=== PATIENT | male | born 1950 | race Caucasian/White ===

== ENCOUNTER 2017-02-28 14:03 | Emergency (ER) | payer MEDICARE, MEDICAID ==
[~2017-02-28] VITALS: Ht 180.3 cm; Wt 129.5 kg
[~2017-02-28 14:03] MED LIST: ALDACTONE 25MG25 M1 PO; ALDACTONE50 MG PO; ALTACE 10MG TAB10 MG PO; ALTACE10 MG PO; AMBIEN 10MG10 MG PO; AMOXICILLIN 50500 MG PO; ANTIVERT 12.512.5 MG PO; ANTIVERT 25MG25 MG PO; ASPIRIN 81M81 MG/TA2 PO; ASPIRIN E.C. 8181 MG PO; ATOXIMETIN-B1 CAP PO; BIAXIN 500MG T500 MG PO; CARDURA 1MG1 MG PO; CIPRO 500MG TA500 MG PO; COMPAZINE 110 MG/TAB PO; ELIQUIS 5MG PO; FAMOTIDINE20 MG PO; FLAGYL 250250 MG/TAB PO; FLAGYL500 MG PO; FLOMAX 0.40.4 MG/CAP; FLOMAX 0.40.4 MG/CAP PO; IRON325 MG PO; LASIX 20MG TABL20 MG PO; LASIX 40MG TABL40 MG PO; LIPITOR20 MG PO; LOPRESSOR 225 MG/TAB PO; LOPRESSOR100 MG PO; LORTAB 5/500 501 TAB; LORTAB 5/500 501 TAB PO; MACRODANTIN50 MG/CA1 PO; METOPROLOL SUCC50 MG PO; MULTAQ400 MG PO; NORCO 325 MG-51 TAB PO; NORCO 325 MG-7.1 TAB PO; PACERONE100 MG; PACERONE200 MG PO; PEPCID 20MG TAB20 MG PO; PERCOCET 325 MG1 TA2 PO; PREVACID 30MG30 M1 PO; PROTONIX 40MG T40 MG PO; RITE AID BRAND PO; TYLENOL W/COD1 UDTAB PO; ULTRAM 50MG TAB50 MG PO; ZITHROMAX 250M250 MG PO
[2017-02-28 14:07] VITALS: TEMP 97.6
[2017-02-28 14:22] LABS: BASO % 0.8 % (0.0-2.0); EOS # 0.3 (0.0-0.7); EOS % 6.7 % (0-4.0); GRAN # 2.1 (1.4-6.5); GRAN % 54.9 % (42.2-75.2); HEMATOCRIT 39.7 % (42.0-52.0); HEMOGLOBIN 13.4 g/dl (13.5-18.0); LYMPH % 26.1 % (20.0-51.0); MEAN CELL VOLUME 93 fl (80.0-100.0); MEAN CORPUSCULAR HEMOGLOBIN 32 pg (27.0-31.0); MEAN CORPUSCULAR HGB CONC 34 g/dl (33.0-37.0); MONO # 0.4 (0.1-0.6); MONO % 11.2 % (1.7-9.3); PLATELET COUNT 179 K/mm3 (130-400); RED BLOOD COUNT 4.26 M/mm3 (4.20-5.60); REDCELL DISTRIBUTION WIDTH-CV 15.9 % (11.5-14.5); WHITE BLOOD COUNT 3.8 K/mm3 (4.8-10.8)
[2017-02-28 14:32] LABS: ADJUSTED CALCIUM 9.3 mg/dL (8.4-10.2); ALANINE AMINOTRANSFERASE 22 U/L (21-72); ALBUMIN 3.7 gm/dL (3.5-5.0); ALKALINE PHOSPHATASE 88 U/L (50-136); ANION GAP 10 mmol/L (7-16); BILIRUBIN,TOTAL 1.1 mg/dL (0.0-1.0); BLOOD UREA NITROGEN 18 mg/dL (9-20); CALCIUM 9.1 mg/dL (8.4-10.2); CARBON DIOXIDE 24 mmol/L (22-30); CHLORIDE 100 mmol/L (98-107); CREATININE, serum 0.99 mg/dL (0.66-1.25); GLUCOSE 102 mg/dL (74-106); POTASSIUM 4.6 mmol/L (3.4-5.0); SODIUM 134 mmol/L (137-145); TOTAL PROTEIN 6.4 gm/dL (6.4-8.2)
[2017-02-28 14:43] LABS: B-TYPE NATRIURETIC PEPTIDE 2560 pg/mL (0-125)
[2017-02-28 14:51] LABS: TROPONIN-I < 0.012 ng/mL (0.000-0.034)
[2017-02-28 14:52] LABS: INR 1.5 (0.8-3.0)
[2017-02-28 14:54] LABS: PARTIAL THROMBOPLASTIN TIME 45.6 SECONDS (26.0-37.0)
[2017-02-28 15:24] VITALS: BP 111/93; PULSE 66
[2017-04-22] MEDS ORDERED: EDOX60TA1 PO (10:52)
[2017-04-22] MEDS ORDERED: IRON TABLETS325 MG PO (11:00)
[2017-04-23] MEDS ORDERED: NORCO 325 MG-7.1 TAB PO (12:55)
== END 2017-02-28 15:24 | disposition home or self-care (01) ==
LOC: COL.ER 14:03
PROVIDERS: Family Medicine
DX: R07.9 Chest pain, unspecified (principal); I10 Essential (primary) hypertension; I48.2 Chronic atrial fibrillation; Z79.01 Long term (current) use of anticoagulants; I25.10 Atherosclerotic heart disease of native coronary artery without angina pectoris

== ENCOUNTER → 2017-03-26 | Outpatient (CLI) | payer MEDICARE, MEDICAID ==
[~2017-03-26] MED LIST changes: +EDOX60TA1 PO; +IRON TABLETS325 MG PO; +LANOXIN 0.120.125 MG PO; +LOPRESSOR 550 MG/TAB PO; +PRINIVIL5 MG PO; +SOLARAZE3% TOP; +WELLBUTRIN XL150 MG PO
== END ==
LOC: COL.RAD 09:45
DX: E04.1 Nontoxic single thyroid nodule (principal); E07.9 Disorder of thyroid, unspecified; C18.9 Malignant neoplasm of colon, unspecified

== ENCOUNTER → 2017-04-23 | Outpatient (CLI) | payer MEDICARE, MEDICAID ==
[~2017-04-23] VITALS: Ht 180.3 cm; Wt 120.0 kg
[2017-04-23 12:57] VITALS: BP 112/69; PULSE 59
[2017-04-23 14:35] VITALS: BP 108/74; PULSE 59
== END ==
LOC: COL.RAD 12:22
DX: E04.1 Nontoxic single thyroid nodule (principal); Z98.84 Bariatric surgery status; Z85.6 Personal history of leukemia; Z85.038 Personal history of other malignant neoplasm of large intestine

== ENCOUNTER 2017-05-10 16:27 | Inpatient (IN) | payer MEDICARE, MEDICAID ==
[~2017-05-10] VITALS: Ht 180.3 cm; Wt 135.0 kg
[2017-05-10] VITALS (198 sets, daily range): BP systolic 123–134; BP diastolic 77–81; PULSE 48–81; O2SAT 85–100
[~2017-05-10 16:27] MED LIST changes: -LANOXIN 0.120.125 MG PO; -LOPRESSOR 550 MG/TAB PO; -PRINIVIL5 MG PO; -SOLARAZE3% TOP; -WELLBUTRIN XL150 MG PO
[2017-05-10] MEDS ORDERED: LANOXIN 0.120.125 MG PO (21:27)
[2017-05-10] MEDS ORDERED: WELLBUTRIN XL150 MG PO (21:31)
[2017-05-10] MEDS ORDERED: PRINIVIL5 MG PO (21:33)
[2017-05-10] MEDS ORDERED: SOLARAZE3% TOP (21:35)
[2017-05-10 21:44] LABS: INR 1.2 (0.8-3.0); PROTHROMBIN TIME 12.8 SECONDS (9.7-12.8)
[2017-05-11] VITALS (271 sets, daily range): BP systolic 108–139; BP diastolic 78–106; PULSE 63–80; TEMP 98.4–99; O2SAT 82–100
[2017-05-11 04:21] LABS: BASO % 0.3 % (0.0-2.0); EOS % 0.6 % (0-4.0); GRAN # 5.3 (1.4-6.5); GRAN % 79.8 % (42.2-75.2); HEMATOCRIT 34.2 % (42.0-52.0); HEMOGLOBIN 11.2 g/dl (13.5-18.0); LYMPH # 0.6 (1.2-3.4); LYMPH % 8.7 % (20.0-51.0); MEAN CELL VOLUME 92 fl (80.0-100.0); MEAN CORPUSCULAR HEMOGLOBIN 30 pg (27.0-31.0); MEAN CORPUSCULAR HGB CONC 33 g/dl (33.0-37.0); MEAN PLATELET VOLUME 10.8 fl (7.4-10.4); MONO # 0.7 (0.1-0.6); MONO % 10.4 % (1.7-9.3); PLATELET COUNT 191 K/mm3 (130-400); RED BLOOD COUNT 3.73 M/mm3 (4.20-5.60); REDCELL DISTRIBUTION WIDTH-CV 16.3 % (11.5-14.5); WHITE BLOOD COUNT 6.7 K/mm3 (4.8-10.8)
[2017-05-11 04:28] LABS: INR 1.2 (0.8-3.0)
[2017-05-11 04:30] LABS: ANION GAP 4 mmol/L (7-16); BLOOD UREA NITROGEN 15 mg/dL (9-20); CALCIUM 7.8 mg/dL (8.4-10.2); CARBON DIOXIDE 25 mmol/L (22-30); CHLORIDE 100 mmol/L (98-107); CREATININE, serum 0.88 mg/dL (0.66-1.25); GLUCOSE 92 mg/dL (74-106); POTASSIUM 4.8 mmol/L (3.4-5.0); SODIUM 129 mmol/L (137-145)
[2017-05-11 04:38] LABS: DIGOXIN 0.6 ng/mL (0.8-2.0)
[2017-05-11 04:42] LABS: TROPONIN-I < 0.012 ng/mL (0.000-0.034)
[2017-05-12] VITALS (14 sets, daily range): BP systolic 107–158; BP diastolic 63–82; PULSE 52–88; TEMP 97.9–98.7
[2017-05-12 07:43] LABS: BASO % 0.6 % (0.0-2.0); EOS # 0.1 (0.0-0.7); EOS % 3.5 % (0-4.0); GRAN # 1.9 (1.4-6.5); GRAN % 58.8 % (42.2-75.2); HEMOGLOBIN 10.7 g/dl (13.5-18.0); LYMPH # 0.7 (1.2-3.4); LYMPH % 22.5 % (20.0-51.0); MEAN CELL VOLUME 92 fl (80.0-100.0); MEAN CORPUSCULAR HEMOGLOBIN 30 pg (27.0-31.0); MEAN CORPUSCULAR HGB CONC 32 g/dl (33.0-37.0); MEAN PLATELET VOLUME 11.1 fl (7.4-10.4); MONO # 0.5 (0.1-0.6); MONO % 14.3 % (1.7-9.3); PLATELET COUNT 181 K/mm3 (130-400); RED BLOOD COUNT 3.57 M/mm3 (4.20-5.60); REDCELL DISTRIBUTION WIDTH-CV 16.4 % (11.5-14.5); WHITE BLOOD COUNT 3.2 K/mm3 (4.8-10.8)
[2017-05-12 07:54] LABS: CALCIUM 7.7 mg/dL (8.4-10.2); CREATININE, serum 0.83 mg/dL (0.66-1.25); POTASSIUM 4.2 mmol/L (3.4-5.0)
[2017-05-12 08:11] LABS: INR 1.2 (0.8-3.0)
[2017-05-13 02:36] VITALS: BP 110/63; PULSE 68; TEMP 99.5
[2017-05-13 05:57] VITALS: BP 106/61; PULSE 78; TEMP 98.3
[2017-05-13 07:30] LABS: INR 1.2 (0.8-3.0); PROTHROMBIN TIME 13.2 SECONDS (9.7-12.8)
[2017-05-13 07:37] LABS: ANION GAP 4 mmol/L (7-16); BLOOD UREA NITROGEN 11 mg/dL (9-20); CARBON DIOXIDE 28 mmol/L (22-30); CHLORIDE 97 mmol/L (98-107); CREATININE, serum 0.88 mg/dL (0.66-1.25); GLUCOSE 88 mg/dL (74-106); POTASSIUM 4.2 mmol/L (3.4-5.0); SODIUM 129 mmol/L (137-145)
[2017-05-13 07:48] LABS: TROPONIN-I < 0.012 ng/mL (0.000-0.034)
[2017-05-13 11:00] VITALS: BP 128/75; PULSE 82; TEMP 98.2
[2017-05-13 13:58] VITALS: BP 103/56; PULSE 98; TEMP 98.1
[2017-05-13] MEDS ORDERED: NORCO 325 MG-7.1 TAB PO (16:04)
[2017-05-13 17:49] VITALS: BP 108/61; PULSE 71; TEMP 98.6
[2017-05-13 22:03] VITALS: BP 104/63; PULSE 69; TEMP 98.2
[2017-05-14 02:08] VITALS: BP 113/65; PULSE 72; TEMP 98.2
[2017-05-14 05:48] VITALS: BP 150/97; PULSE 74; TEMP 97.5
[2017-05-14 08:00] LABS: BASO % 0.6 % (0.0-2.0); EOS # 0.2 (0.0-0.7); EOS % 5.1 % (0-4.0); GRAN # 1.9 (1.4-6.5); GRAN % 51.9 % (42.2-75.2); LYMPH % 27.2 % (20.0-51.0); MEAN CELL VOLUME 92 fl (80.0-100.0); MEAN CORPUSCULAR HGB CONC 32 g/dl (33.0-37.0); MEAN PLATELET VOLUME 10.9 fl (7.4-10.4); MONO # 0.5 (0.1-0.6); MONO % 14.9 % (1.7-9.3); PLATELET COUNT 177 K/mm3 (130-400); REDCELL DISTRIBUTION WIDTH-CV 16.7 % (11.5-14.5); WHITE BLOOD COUNT 3.6 K/mm3 (4.8-10.8)
[2017-05-14 08:06] LABS: HEMATOCRIT 32.1 % (42.0-52.0); HEMOGLOBIN 10.4 g/dl (13.5-18.0); MEAN CORPUSCULAR HEMOGLOBIN 30 pg (27.0-31.0)
[2017-05-14 08:11] LABS: CALCIUM 7.9 mg/dL (8.4-10.2); CREATININE, serum 0.81 mg/dL (0.66-1.25); POTASSIUM 4.1 mmol/L (3.4-5.0)
[2017-05-14 08:22] LABS: INR 1.3 (0.8-3.0); PROTHROMBIN TIME 14.5 SECONDS (9.7-12.8)
[2017-05-14] MEDS ORDERED: LOPRESSOR 550 MG/TAB PO (08:44)
[2017-05-14 09:27] VITALS: BP 97/62; PULSE 73; TEMP 98.1
== END 2017-05-14 11:00 | disposition home or self-care (01) | DRG 352 ==
LOC: JCC 16:27 → SURG 16:29 → ICU 20:29 → SURG 05-11 21:01
PROVIDERS: Family Medicine; Internal Medicine Interventional Cardiology; Nurse Practitioner; Nurse Practitioner Family; Physician Assistant; Surgery
PROC: 0YU60JZ Supplement Left Inguinal Region with Synthetic Substitute, Open Approach (ICD-10-PCS; principal; 2017-05-12 09:00)
DX: K40.30 Unilateral inguinal hernia, with obstruction, without gangrene, not specified as recurrent (principal); I10 Essential (primary) hypertension; E78.5 Hyperlipidemia, unspecified; I48.2 Chronic atrial fibrillation; B35.4 Tinea corporis; B35.6 Tinea cruris; Z98.84 Bariatric surgery status; Z85.038 Personal history of other malignant neoplasm of large intestine; Z95.5 Presence of coronary angioplasty implant and graft; Z85.6 Personal history of leukemia; Z87.891 Personal history of nicotine dependence
CPT/HCPCS: 99223-AI; 99232-AI; 99233-AI; 99239; A9284; C1781; J0690; J1644; J2270; J2370; J2405; J2704; J2765; J3010; J7030; J7120

== ENCOUNTER 2017-06-24 14:12 | Emergency (ER) | payer MEDICARE, MEDICAID ==
[~2017-06-24] VITALS: Ht 180.3 cm; Wt 129.5 kg
[~2017-06-24 14:12] MED LIST changes: +LANOXIN 0.120.125 MG PO; +LOPRESSOR 550 MG/TAB PO; +PRINIVIL5 MG PO; +SOLARAZE3% TOP; +WELLBUTRIN XL150 MG PO
[2017-06-24 14:16] VITALS: TEMP 98.4
[2017-06-24 15:33] LABS: ADJUSTED CALCIUM 9.1 mg/dL (8.4-10.2); ALBUMIN 2.7 gm/dL (3.5-5.0); BILIRUBIN,TOTAL 0.5 mg/dL (0.0-1.0); CALCIUM 8.1 mg/dL (8.4-10.2); POTASSIUM 4.9 mmol/L (3.4-5.0); TOTAL PROTEIN 5.8 gm/dL (6.4-8.2)
[2017-06-24 15:45] LABS: BASO % 0.7 % (0.0-2.0); EOS # 0.1 (0.0-0.7); EOS % 3.2 % (0-4.0); GRAN # 2.8 (1.4-6.5); GRAN % 62.4 % (42.2-75.2); HEMATOCRIT 32.8 % (42.0-52.0); HEMOGLOBIN 10.6 g/dl (13.5-18.0); LYMPH # 0.9 (1.2-3.4); LYMPH % 20.7 % (20.0-51.0); MEAN CELL VOLUME 92 fl (80.0-100.0); MEAN CORPUSCULAR HEMOGLOBIN 30 pg (27.0-31.0); MEAN CORPUSCULAR HGB CONC 32 g/dl (33.0-37.0); MEAN PLATELET VOLUME 10.5 fl (7.4-10.4); MONO # 0.6 (0.1-0.6); MONO % 12.5 % (1.7-9.3); PLATELET COUNT 301 K/mm3 (130-400); RED BLOOD COUNT 3.56 M/mm3 (4.20-5.60); REDCELL DISTRIBUTION WIDTH-CV 16.8 % (11.5-14.5); WHITE BLOOD COUNT 4.4 K/mm3 (4.8-10.8)
[2017-06-24 17:00] LABS: PH 5 (5-8); SQUAMOUS EPITHELIAL None Seen /hpf; URINE APPEARANCE Clear; URINE BACTERIA None Seen /hpf; URINE BILIRUBIN Negative (NEGATIVE); URINE BLOOD 1+ (NEGATIVE); URINE COLOR Yellow; URINE GLUCOSE Negative (NEGATIVE); URINE KETONE Negative (NEGATIVE); URINE RBC 0-2 /hpf; URINE WBC 0-2 /hpf
[2017-06-24 18:08] VITALS: BP 109/74; PULSE 69
== END 2017-06-24 18:23 | disposition home or self-care (01) ==
LOC: COL.ER 14:12 → SURG 16:27 → COL.ER 18:23
PROVIDERS: Emergency Medicine
DX: T81.30XA Disruption of wound, unspecified, initial encounter (principal); K91.873 Postprocedural seroma of a digestive system organ or structure following other procedure; L02.211 Cutaneous abscess of abdominal wall; B96.89 Other specified bacterial agents as the cause of diseases classified elsewhere; I10 Essential (primary) hypertension; I48.91 Unspecified atrial fibrillation; E78.5 Hyperlipidemia, unspecified; Z85.038 Personal history of other malignant neoplasm of large intestine; Z95.5 Presence of coronary angioplasty implant and graft; Z87.891 Personal history of nicotine dependence; Z90.49 Acquired absence of other specified parts of digestive tract; Z98.84 Bariatric surgery status; Z98.890 Other specified postprocedural states
CPT/HCPCS: J2765; J3010; J7030; Q9967

== ENCOUNTER 2017-10-11 10:52 | Day surgery (SDC) | payer MEDICARE, MEDICAID ==
[2017-10-11] VITALS (7 sets, daily range): BP systolic 92–120; BP diastolic 45–77; PULSE 50–69; TEMP 97.8–98
[~2017-10-11] VITALS: Ht 180.3 cm; Wt 129.5 kg
[~2017-10-11 10:52] MED LIST changes: +CEPHALEXIN500 M1 PO; +NYAMYC100000 U/G TOP; +PACERONE400 MG PO
[2017-10-11 11:25] LABS: MEAN CELL VOLUME 93 fl (80.0-100.0); MEAN CORPUSCULAR HGB CONC 32 g/dl (33.0-37.0); MEAN PLATELET VOLUME 11.1 fl (7.4-10.4); PLATELET COUNT 291 K/mm3 (130-400); RED BLOOD COUNT 3.88 M/mm3 (4.20-5.60); REDCELL DISTRIBUTION WIDTH-CV 16.3 % (11.5-14.5)
[2017-10-11 11:28] LABS: HEMATOCRIT 36.2 % (42.0-52.0); HEMOGLOBIN 11.6 g/dl (13.5-18.0); MEAN CORPUSCULAR HEMOGLOBIN 30 pg (27.0-31.0)
[2017-10-11 11:32] LABS: INR 1.1 (0.8-3.0); PROTHROMBIN TIME 13.1 SECONDS (9.7-12.8)
[2017-10-11 11:38] LABS: CREATININE, serum 1.11 mg/dL (0.66-1.25); POTASSIUM 4.2 mmol/L (3.4-5.0)
[2017-10-11] MEDS ORDERED: EDOX60TA1 PO (12:24)
[2017-10-11] MEDS ORDERED: ALDACTONE 25MG25 M1 PO (12:27)
[2017-10-11] MEDS ORDERED: ZESTRIL 5MG5 MG PO (12:27)
[2017-10-11] MEDS ORDERED: FLOMAX 0.40.4 MG/CAP PO (12:28)
[2017-10-11] MEDS ORDERED: CARDENE 20MG CA20 M1 PO (12:28)
[2017-10-11] MEDS ORDERED: DEMADEX 20MG20 M1 PO (12:28)
[2017-10-11] MEDS ORDERED: CARDURA4 MG PO (12:29)
[2017-10-11] MEDS ORDERED: AMBIEN 10MG10 MG PO (12:29)
[2017-10-12 00:30] VITALS: BP 117/74; PULSE 61; TEMP 98
[2017-10-12 03:49] VITALS: BP 124/68; PULSE 60; TEMP 98.4
[2017-10-12 07:22] VITALS: BP 134/77; PULSE 39; PULSE 64; TEMP 98.2
[2017-10-12 11:42] VITALS: BP 101/56; PULSE 65; TEMP 98
== END 2017-10-12 13:04 | disposition home or self-care (01) ==
LOC: COL.CAR 10:52 → MEDICAL 15:39 → COL.CAR 10-12 13:04
PROVIDERS: Internal Medicine Interventional Cardiology
DX: R00.1 Bradycardia, unspecified (principal); I45.5 Other specified heart block; I48.0 Paroxysmal atrial fibrillation; R53.83 Other fatigue; Z88.0 Allergy status to penicillin; Z88.6 Allergy status to analgesic agent; Z85.6 Personal history of leukemia; Z85.038 Personal history of other malignant neoplasm of large intestine; Z92.21 Personal history of antineoplastic chemotherapy; Z68.38 Body mass index [BMI] 38.0-38.9, adult; I51.7 Cardiomegaly; I10 Essential (primary) hypertension; I08.0 Rheumatic disorders of both mitral and aortic valves
CPT/HCPCS: OP; J1940; J2250; J3010; J3370; J7030; J7050

== ENCOUNTER → 2018-02-21 | Outpatient (CLI) | payer MEDICARE, MEDICAID ==
[~2018-02-21] MED LIST changes: +CARDENE 20MG CA20 M1 PO; +CARDURA4 MG PO; +DEMADEX 20MG20 M1 PO; +ZESTRIL 5MG5 MG PO
== END ==
LOC: COL.RAD 13:01
DX: C18.3 Malignant neoplasm of hepatic flexure (principal); M46.84 Other specified inflammatory spondylopathies, thoracic region; E07.89 Other specified disorders of thyroid; J84.10 Pulmonary fibrosis, unspecified; N28.1 Cyst of kidney, acquired; M46.86 Other specified inflammatory spondylopathies, lumbar region; M51.36 Other intervertebral disc degeneration, lumbar region; K40.90 Unilateral inguinal hernia, without obstruction or gangrene, not specified as recurrent; Z98.84 Bariatric surgery status; Z90.49 Acquired absence of other specified parts of digestive tract; Z95.0 Presence of cardiac pacemaker
CPT/HCPCS: Q9967

== ENCOUNTER 2018-02-26 05:28 | Day surgery (SDC) | payer MEDICARE, MEDICAID ==
[~2018-02-26] VITALS: Ht 180.3 cm; Wt 129.2 kg
[2018-02-26 06:32] VITALS: BP 124/54; PULSE 36; TEMP 97.6
[2018-02-26 07:57] VITALS: BP 116/70; PULSE 43; TEMP 97.5
[2018-02-26 08:15] VITALS: BP 116/62; PULSE 62
[2018-02-26 08:30] VITALS: BP 109/42; PULSE 41
[2018-02-26 08:32] VITALS: BP 114/76; PULSE 43
== END 2018-02-26 09:16 | disposition home or self-care (01) ==
LOC: SDCO 05:28
DX: K57.30 Diverticulosis of large intestine without perforation or abscess without bleeding (principal); K21.9 Gastro-esophageal reflux disease without esophagitis; E66.9 Obesity, unspecified; N40.0 Benign prostatic hyperplasia without lower urinary tract symptoms; D50.9 Iron deficiency anemia, unspecified; F17.290 Nicotine dependence, other tobacco product, uncomplicated; I25.10 Atherosclerotic heart disease of native coronary artery without angina pectoris; I25.2 Old myocardial infarction; I11.0 Hypertensive heart disease with heart failure; I50.9 Heart failure, unspecified; M19.90 Unspecified osteoarthritis, unspecified site; Z79.891 Long term (current) use of opiate analgesic; Z79.01 Long term (current) use of anticoagulants; Z95.0 Presence of cardiac pacemaker; Z85.038 Personal history of other malignant neoplasm of large intestine
CPT/HCPCS: J2704; J7030

== ENCOUNTER 2018-06-22 16:41 | Emergency (ER) | payer MEDICARE, MEDICAID ==
[~2018-06-22] VITALS: Ht 180.3 cm; Wt 127.3 kg
[2018-06-22 16:48] VITALS: TEMP 97.9
[2018-06-22 17:13] LABS: BASO % 0.6 % (0.0-2.0); EOS # 0.1 (0.0-0.7); EOS % 1.5 % (0-4.0); GRAN # 2.1 (1.4-6.5); GRAN % 63.6 % (42.2-75.2); HEMOGLOBIN 10.3 g/dl (13.5-18.0); LYMPH # 0.8 (1.2-3.4); LYMPH % 24.1 % (20.0-51.0); MEAN CELL VOLUME 91 fl (80.0-100.0); MEAN CORPUSCULAR HEMOGLOBIN 30 pg (27.0-31.0); MEAN CORPUSCULAR HGB CONC 33 g/dl (33.0-37.0); MEAN PLATELET VOLUME 10.4 fl (7.4-10.4); MONO # 0.3 (0.1-0.6); MONO % 9.9 % (1.7-9.3); PLATELET COUNT 225 K/mm3 (130-400); RED BLOOD COUNT 3.49 M/mm3 (4.20-5.60); REDCELL DISTRIBUTION WIDTH-CV 17.4 % (11.5-14.5)
[2018-06-22 17:16] LABS: HEMATOCRIT 31.6 % (42.0-52.0)
[2018-06-22 17:29] LABS: ALANINE AMINOTRANSFERASE 19 U/L (21-72); ALBUMIN 2.9 gm/dL (3.5-5.0); ALKALINE PHOSPHATASE 85 U/L (50-136); ANION GAP 3 mmol/L (7-16); AST,SGOT 19 U/L (15-37); BILIRUBIN,TOTAL 0.5 mg/dL (0.0-1.0); BLOOD UREA NITROGEN 14 mg/dL (9-20); CALCIUM 8.6 mg/dL (8.4-10.2); CARBON DIOXIDE 25 mmol/L (22-30); CHLORIDE 101 mmol/L (98-107); CREATININE, serum 0.92 mg/dL (0.66-1.25); GLUCOSE 96 mg/dL (74-106); LIPASE 39 U/L (23-300); POTASSIUM 4.3 mmol/L (3.4-5.0); SODIUM 129 mmol/L (137-145); TOTAL PROTEIN 5.5 gm/dL (6.4-8.2)
[2018-06-22 17:37] LABS: C-REACTIVE PROTEIN < 0.5 mg/dL (0.0-0.9); TROPONIN-I < 0.012 ng/mL (0.000-0.034)
[2018-06-22 17:50] VITALS: BP 121/72
[2018-06-22 18:06] VITALS: PULSE 65
== END 2018-06-22 18:06 | disposition home or self-care (01) ==
LOC: COL.ER 16:41
PROVIDERS: Emergency Medicine
DX: R07.89 Other chest pain (principal); I10 Essential (primary) hypertension; I48.91 Unspecified atrial fibrillation; K21.9 Gastro-esophageal reflux disease without esophagitis; N40.0 Benign prostatic hyperplasia without lower urinary tract symptoms; F17.210 Nicotine dependence, cigarettes, uncomplicated; Z98.84 Bariatric surgery status

== ENCOUNTER 2018-12-03 18:06 | Inpatient (IN) | payer MEDICARE, MEDICAID ==
[~2018-12-03] VITALS: Ht 180.3 cm; Wt 136.4 kg
[2018-12-03] MEDS ORDERED: ELIQUIS 5MG PO (18:14)
[2018-12-03 18:56] LABS: BASO % 0.6 % (0.0-2.0); EOS # 0.1 (0.0-0.7); EOS % 4.1 % (0-4.0); GRAN # 1.7 (1.4-6.5); GRAN % 54.2 % (42.2-75.2); HEMATOCRIT 32.2 % (42.0-52.0); HEMOGLOBIN 10.3 g/dl (13.5-18.0); LYMPH % 30.3 % (20.0-51.0); MEAN CELL VOLUME 93 fl (80.0-100.0); MEAN CORPUSCULAR HEMOGLOBIN 30 pg (27.0-31.0); MEAN CORPUSCULAR HGB CONC 32 g/dl (33.0-37.0); MONO # 0.3 (0.1-0.6); MONO % 10.5 % (1.7-9.3); PLATELET COUNT 196 K/mm3 (130-400); RED BLOOD COUNT 3.47 M/mm3 (4.20-5.60); REDCELL DISTRIBUTION WIDTH-CV 21.4 % (11.5-14.5)
[2018-12-03 18:57] LABS: INR 1.7 (0.8-3.0)
[2018-12-03 19:13] LABS: ALANINE AMINOTRANSFERASE 16 U/L (21-72); ALKALINE PHOSPHATASE 92 U/L (50-136); ANION GAP 5 mmol/L (7-16); AST,SGOT 10 U/L (15-37); BILIRUBIN,TOTAL 0.8 mg/dL (0.0-1.0); BLOOD UREA NITROGEN 16 mg/dL (9-20); CALCIUM 8.5 mg/dL (8.4-10.2); CARBON DIOXIDE 23 mmol/L (22-30); CHLORIDE 107 mmol/L (98-107); CREATININE, serum 1.24 mg/dL (0.66-1.25); GLUCOSE 99 mg/dL (74-106); POTASSIUM 4.1 mmol/L (3.4-5.0); SODIUM 135 mmol/L (137-145); TOTAL PROTEIN 5.6 gm/dL (6.4-8.2)
[2018-12-03 19:25] LABS: TROPONIN-I < 0.012 ng/mL (0.000-0.035)
[2018-12-03] MEDS ORDERED: EDOX60TA1 PO (19:52)
[2018-12-03] MEDS ORDERED: NORCO 325 MG-7.1 TAB PO (19:53)
[2018-12-04] VITALS (664 sets, daily range): BP systolic 86–120; BP diastolic 54–90; PULSE 69–99; TEMP 97.4–98; O2SAT 79–100
--- NOTE | 2018-12-04 02:45 | NUR ---
Report received from She HAWK in ED.
--- NOTE | 2018-12-04 03:00 | NUR ---
Pt arrived to ICU07. Ambulated with stand by assist and use of cane to ICU bed at this time. Home clothes were removed and application of a hospital gown applied. Skin was assessed at this time and noted in admission B assessment. Pt personal belongings include cane, clothing, and corrective eye glasses on pts face at this time. Pt pleasant and cooperative.
--- NOTE | 2018-12-04 06:30 | NUR ---
Pt reported need for a BM, bedside commode was used, pts HR increased to 160's. Once pt was back in bed for approximately 5 minutes HR decreased to < 90's. Pt denies any lightheadedness, dizziness or chest pain associated with HR increase. Currently not on the Cardizem gtt per titration orders.
--- NOTE | 2018-12-04 07:40 | NUR ---
Bedside report provided to Maria Dolores Romero RN. Pt resting in bed at this time with eyes intermittently open and closed during report. Denies any questions or pain at this time.
--- NOTE | 2018-12-04 07:45 | NUR ---
Bedside report received from KENN Long.
--- NOTE | 2018-12-04 08:00 | NUR ---
Assessment completed. Pt awake, in bed. Denies any pain. HR Apaced on monitor. Pt moves independentely in bed. Discussed plan of care r/t possible KAM with cardioversion today. Waiting for Dr to see pt. Pt NPO at this time. VSS. Call light in reach.
[2018-12-04 08:11] LABS: EOS # 0.1 (0.0-0.7); GRAN # 1.6 (1.4-6.5); GRAN % 52.9 % (42.2-75.2); LYMPH % 33.7 % (20.0-51.0); MEAN CELL VOLUME 93 fl (80.0-100.0); MEAN CORPUSCULAR HEMOGLOBIN 31 pg (27.0-31.0); MEAN CORPUSCULAR HGB CONC 33 g/dl (33.0-37.0); MEAN PLATELET VOLUME 12.1 fl (7.4-10.4); MONO # 0.3 (0.1-0.6); MONO % 10.4 % (1.7-9.3); PLATELET COUNT 174 K/mm3 (130-400); RED BLOOD COUNT 3.28 M/mm3 (4.20-5.60); REDCELL DISTRIBUTION WIDTH-CV 21.5 % (11.5-14.5)
[2018-12-04 08:15] LABS: HEMATOCRIT 30.6 % (42.0-52.0)
[2018-12-04 08:27] LABS: CALCIUM 8.2 mg/dL (8.4-10.2); CREATININE, serum 1.32 mg/dL (0.66-1.25); MAGNESIUM 1.9 mg/dL (1.6-2.3); POTASSIUM 4.1 mmol/L (3.4-5.0)
--- NOTE | 2018-12-04 08:50 | NUR ---
KENN Masters with Dr Degroot at bedside. Updated on pt status. HR Apaced/Afib 90-100s on monitor. Pt has no complaints at this time. Will talk to Dr Degroot if plan to do KAM and cardioversion today.
--- NOTE | 2018-12-04 09:30 | NUR ---
Physical therapy working with pt in room.
--- NOTE | 2018-12-04 09:50 | NUR ---
Guerrero RN with Dr Degroot called to update plans to do KAM and cardioversion today. Ok for clear liquids for breakfast then NPO.
--- NOTE | 2018-12-04 11:30 | NUR ---
Paged Anesthesia at [phone] and [phone] without a response. Charge nurse was able to notify anesthesia at 1130 of consult for cardioversion at 1330.
--- NOTE | 2018-12-04 11:31 | NUR ---
First visit from the furnace combination analyst. No needs right now.
--- NOTE | 2018-12-04 13:30 | NUR ---
Anesthesia and US tech at bedside for KAM and cardioversion. Suction and oxymask set up. Crash cart in room and pt connected to defribrillator. Dr Degroot at bedside. time out completed with anesthesia, Oziel Sosa CRNA and Dr Degroot for KAM and cardioversion.
--- NOTE | 2018-12-04 13:50 | NUR ---
KAM completed. Pt cardioverted with 100J at 1347 and again with 200 J at 1349. Pt's HR Apaced. Pt resting in bed, VSS. Will monitor, see moderate sedation flowsheet.
--- NOTE | 2018-12-04 14:49 | NUR ---
SW met with patient about discharge planning. Patient reports he plans to return when discharged. Patient lives independently at home with his . Patient's PCP is Dr Salinas and he obtains prescriptions from [facility]. Patient uses a cane for ambulation but no other DME is reported and he does not use any home health services. Patient was seen by PT today and outpatient PT is recommended after discharge. Patient reports he is agreeable to outpatient PT. Patient reports he is unsure if he has a DPOA but is not interested in completing one at that time. SW does not anticipate any discharge needs.
--- NOTE | 2018-12-04 18:00 | NUR ---
Pt to CT scan via bed.
--- NOTE | 2018-12-04 18:23 | NUR ---
Pt arrived back to ICU room from CT scan via bed. Pt has no complaints at this time. Call light in reach.
--- NOTE | 2018-12-04 19:35 | NUR ---
Report given to night stocker, Rn.
[2018-12-05] VITALS (795 sets, daily range): BP systolic 95–114; BP diastolic 70–83; PULSE 66–99; TEMP 97.5–98.3; O2SAT 75–100
--- NOTE | 2018-12-05 00:54 | NUR ---
Pt resting in besd appears comfortable at this time, VSS, recieved sleep aid. Will continue to monitor and update MD as needed
[2018-12-05 05:36] LABS: BASO % 0.7 % (0.0-2.0); EOS # 0.1 (0.0-0.7); EOS % 1.5 % (0-4.0); GRAN # 2.7 (1.4-6.5); GRAN % 66.7 % (42.2-75.2); HEMOGLOBIN 10.2 g/dl (13.5-18.0); LYMPH # 0.9 (1.2-3.4); LYMPH % 22.1 % (20.0-51.0); MEAN CELL VOLUME 93 fl (80.0-100.0); MEAN CORPUSCULAR HEMOGLOBIN 30 pg (27.0-31.0); MEAN CORPUSCULAR HGB CONC 32 g/dl (33.0-37.0); MEAN PLATELET VOLUME 12.2 fl (7.4-10.4); MONO # 0.4 (0.1-0.6); PLATELET COUNT 204 K/mm3 (130-400); RED BLOOD COUNT 3.39 M/mm3 (4.20-5.60); REDCELL DISTRIBUTION WIDTH-CV 21.5 % (11.5-14.5)
[2018-12-05 05:42] LABS: HEMATOCRIT 31.5 % (42.0-52.0)
[2018-12-05 05:51] LABS: CALCIUM 8.3 mg/dL (8.4-10.2); CREATININE, serum 1.22 mg/dL (0.66-1.25); POTASSIUM 4.1 mmol/L (3.4-5.0)
--- NOTE | 2018-12-05 07:50 | NUR ---
Bedside report given to KENN Sheldon. Care of patient assumed at this time.
--- NOTE | 2018-12-05 08:18 | NUR ---
Patient assessment complete. Patient resting in bed, denies pain or shortness of breath. No acute findings. Will continue to monitor.
--- NOTE | 2018-12-05 12:00 | NUR ---
Patient resting in bed. No acute changes. Remains on amiodarone drip at 1 mg/min. Will continue to monitor.
--- NOTE | 2018-12-05 16:00 | NUR ---
Patient helped to commode. No acute changes. Pain and shortness of breath denied at this time. Will continue to monitor.
--- NOTE | 2018-12-05 16:50 | NUR ---
Spoke with Sangita in pharmacy regarding patient's evening coreg dose. Per pharmacy, medication should be given later this evening since medication was initially given around noon.
--- NOTE | 2018-12-05 19:49 | NUR ---
Bedside report given to KENN Pritchett.
--- NOTE | 2018-12-05 22:10 | NUR ---
Requesting [place] for pain in knees and ambiem to help with sleep. Otherwise no concerns at this time.
[2018-12-06] VITALS (487 sets, daily range): BP systolic 95–110; BP diastolic 66–74; PULSE 59–80; TEMP 97.8–98; O2SAT 78–100
--- NOTE | 2018-12-06 02:30 | NUR ---
Patient called to request ice water and jello. Denied any other needs at this time.
--- NOTE | 2018-12-06 07:15 | NUR ---
Bedside report received from KENN Pritchett. Patient is currently sitting up in bed with no complaints. VS WNL. SR on tele. Plan of care discussed. Call light within reach. Will continue to monitor.
--- NOTE | 2018-12-06 07:15 | NUR ---
Bedside report given to KENN Alford. Patient care transfered.
[2018-12-06 08:03] LABS: BASO % 0.5 % (0.0-2.0); EOS # 0.1 (0.0-0.7); EOS % 3.4 % (0-4.0); GRAN # 2.5 (1.4-6.5); GRAN % 62.5 % (42.2-75.2); HEMOGLOBIN 11.7 g/dl (13.5-18.0); LYMPH % 24.6 % (20.0-51.0); MEAN CELL VOLUME 94 fl (80.0-100.0); MEAN CORPUSCULAR HEMOGLOBIN 30 pg (27.0-31.0); MEAN CORPUSCULAR HGB CONC 32 g/dl (33.0-37.0); MEAN PLATELET VOLUME 11.9 fl (7.4-10.4); MONO # 0.4 (0.1-0.6); MONO % 8.8 % (1.7-9.3); PLATELET COUNT 192 K/mm3 (130-400); RED BLOOD COUNT 3.91 M/mm3 (4.20-5.60); REDCELL DISTRIBUTION WIDTH-CV 22.3 % (11.5-14.5)
[2018-12-06 08:05] LABS: HEMATOCRIT 36.6 % (42.0-52.0)
--- NOTE | 2018-12-06 09:31 | NUR ---
REPORT CALLED TO KENN ORTA. PATIENT WILL GO UP TO ROOM 308
--- NOTE | 2018-12-06 10:00 | NUR ---
Arrived to the room at this time. SBA assist with a walker to the bathroom. No pain or needs reported. The call light is in place.
[2018-12-06] MEDS ORDERED: LIPITOR 80MG80 MG PO (12:59)
[2018-12-06] MEDS ORDERED: CORDARONE200 MG/TAB PO (12:59)
[2018-12-06] MEDS ORDERED: ASPIRIN E.C. 8181 MG PO (13:01)
[2018-12-06] MEDS ORDERED: ZESTRIL 20MG TA20 MG PO (13:01)
[2018-12-06] MEDS ORDERED: COREG 6.256.25 MG/TA PO (13:01)
[2018-12-06] MEDS ORDERED: LASIX 20MG TABL20 MG PO (13:01)
[2018-12-06] MEDS ORDERED: NYSTATIN POWDER30 GM TOP (13:21)
[2018-12-06 15:44] LABS: CALCIUM 8.4 mg/dL (8.4-10.2); CREATININE, serum 1.28 mg/dL (0.66-1.25); POTASSIUM 3.9 mmol/L (3.4-5.0)
--- NOTE | 2018-12-06 16:26 | NUR ---
Discharge education completed with the patient. Escorted out via wheelchair. INT removed with difficulty. Al questions answered and the patient was provided this nurses nu,rosio for any questions.
== END 2018-12-06 16:28 | disposition home or self-care (01) | DRG 308 ==
LOC: COL.ER 18:06 → MEDICAL 20:48 → ICU 20:48 → MEDICAL 12-06 10:15
PROVIDERS: Emergency Medicine; Nurse Practitioner Family; ADMIT Internal Medicine
PROC: 5A2204Z Restoration of Cardiac Rhythm, Single (ICD-10-PCS; principal; 2018-12-05)
DX: I48.0 Paroxysmal atrial fibrillation (principal); I50.21 Acute systolic (congestive) heart failure; Z68.41 Body mass index [BMI] 40.0-44.9, adult; E87.1 Hypo-osmolality and hyponatremia; I31.3 Pericardial effusion (noninflammatory); E66.9 Obesity, unspecified; I11.0 Hypertensive heart disease with heart failure; I25.10 Atherosclerotic heart disease of native coronary artery without angina pectoris; Z95.0 Presence of cardiac pacemaker; Z85.030 Personal history of malignant carcinoid tumor of large intestine; E78.5 Hyperlipidemia, unspecified; Z95.5 Presence of coronary angioplasty implant and graft; Z98.84 Bariatric surgery status; F17.210 Nicotine dependence, cigarettes, uncomplicated; K21.9 Gastro-esophageal reflux disease without esophagitis; N40.0 Benign prostatic hyperplasia without lower urinary tract symptoms; Z85.6 Personal history of leukemia; B37.2 Candidiasis of skin and nail
CPT/HCPCS: 99223-AI; 99233-AI; 99239; J0282; J1940; J2704; J7030; J7060; Q9967

== ENCOUNTER 2019-04-14 05:53 | Inpatient (IN) | payer MEDICARE, OTHER ==
[~2019-04-14] VITALS: Ht 170.2 cm; Wt 141.6 kg
[2019-04-14] VITALS (847 sets, daily range): BP systolic 99–120; BP diastolic 65–83; PULSE 65–108; TEMP 97.4–98.4; O2SAT 74–100
[~2019-04-14 05:53] MED LIST changes: +CORDARONE200 MG/TAB PO; +COREG 6.256.25 MG/TA PO; +LIPITOR 80MG80 MG PO; +NYSTATIN POWDER30 GM TOP; +ZESTRIL 20MG TA20 MG PO
[2019-04-14 06:07] LABS: HEMOGLOBIN 11.4 g/dl (13.5-18.0); MEAN CELL VOLUME 93 fl (80.0-100.0); MEAN CORPUSCULAR HEMOGLOBIN 30 pg (27.0-31.0); MEAN CORPUSCULAR HGB CONC 32 g/dl (33.0-37.0); MEAN PLATELET VOLUME 12.3 fl (7.4-10.4); PLATELET COUNT 154 K/mm3 (130-400); RED BLOOD COUNT 3.86 M/mm3 (4.20-5.60); REDCELL DISTRIBUTION WIDTH-CV 23.9 % (11.5-14.5)
[2019-04-14 06:17] LABS: ALANINE AMINOTRANSFERASE 23 U/L (21-72); ALKALINE PHOSPHATASE 161 U/L (50-136); ANION GAP 9 mmol/L (7-16); AST,SGOT 35 U/L (15-37); BILIRUBIN,TOTAL 1.7 mg/dL (0.0-1.0); BLOOD UREA NITROGEN 15 mg/dL (9-20); CARBON DIOXIDE 24 mmol/L (22-30); CHLORIDE 109 mmol/L (98-107); CREATININE, serum 0.85 (0.66-1.25); GLUCOSE 113 mg/dL (74-106); INR 1.7 (0.8-3.0); POTASSIUM 3.3 mmol/L (3.4-5.0); PROTHROMBIN TIME 20.2 SECONDS (9.7-12.8); SODIUM 142 mmol/L (137-145)
[2019-04-14 06:18] LABS: LIPASE < 10 U/L (23-300)
[2019-04-14 06:19] LABS: PARTIAL THROMBOPLASTIN TIME 34.6 SECONDS (26.0-37.0)
[2019-04-14 06:30] LABS: TROPONIN-I < 0.012 ng/mL (0.000-0.035)
[2019-04-14 06:44] LABS: BAND 6 % (0-10); LYMPHOCYTE 6 % (20.0-51.0); NEUTROPHILS 87 % (42.0-75.2)
[2019-04-14 06:45] LABS: HYPOCHROMIA 2+; PLATELET ESTIMATE NORMAL (NORMAL)
--- NOTE | 2019-04-14 09:04 | NUR ---
RECEIVED REPORT FROM KENN BIRMINGHAM.
--- NOTE | 2019-04-14 09:37 | NUR ---
PATIENT ARRIVES TO ICU ROOM 2 VIA ED BED. PATIENT HAS AMIO DRIP AT 1 MG/MIN. PATIENT TRANSPORTED TO ICU BED AND ASSESSED. VITALS OBTAINED AND ARE STABLE. PATIENT IS RED AND EXCORIATED UNDER ABDOMINAL FOLDS AND IN THE GROIN AREA. 2+ PITTING EDEMA OBSERVED OF BILATERAL LOWER EXTREMITIES. PATIENT BRINGS WITH HIM A PAIR OF MORRISSEY SWEATPANTS, PURPLE SHIRT, AND BROWN SLIPPERS. PATIENT DENIES ANY PAIN AT THIS TIME.
--- NOTE | 2019-04-14 14:40 | NUR ---
PATIENT'S AMIO DRIP COMPLETE. NO ORDERS IN NOV TO CONTINUE. DR. SILVA NOTIFIED. RECEIVED VERBAL ORDER FOR PATIENT TO OBTAIN ECHO AND DETERMINE AMIO DOSING AFTERWARDS.
--- NOTE | 2019-04-14 16:18 | NUR ---
DR. SILVA AND ANESTHESIA AT THE BEDSIDE FOR KAM WITH POSSIBLE CARDIOVERSION. TIME OUT COMPLETED AT THIS TIME.
--- NOTE | 2019-04-14 16:28 | NUR ---
PATIENT CARDIOVERTED AND IN SINUS RHYTHM. SEE ANESTHESIA NOTE.
--- NOTE | 2019-04-14 18:32 | NUR ---
MADE ATTEMPT TO CONTACT DR. SILVA TO CLARIFY ORAL AMIODARONE ORDER AT THIS TIME. PREVIOUS ATTEMPT TO CLARIFY ORDER WAS MADE AT 1719. MESSAGES TO CALL BACK WERE LEFT BOTH TIMES. FOLLOWING CARDIOVERSION, DR. SILVA GAVE VERBAL ORDER TO BEGIN ORAL AMIODARONE TOMORROW MORNING AFTER 24 HOURS OF IV AMIO. THERE IS CURRENTLY AN ORDER FOR ORAL AMIO TO BEGIN TONIGHT AT 2100. ORDER STILL NEEDS CLARIFIED.
--- NOTE | 2019-04-14 18:43 | NUR ---
DR. SILVA CLARIFIED AMIO ORDER. OK TO START ORAL DOSE TONIGHT.
--- NOTE | 2019-04-14 19:25 | NUR ---
BEDSIDE REPORT GIVEN TO KENN GONZALEZ.
--- NOTE | 2019-04-14 20:06 | NUR ---
Pt resting in bed, denies pain, VSS at this time. pt currently remains on Amio gtt at 1mg, IV site looks good and filter in place. Pt had large, brown, loose BM at change of shift. Pt remain in regular A-paced rythme. and K replaced today. Will continue to monitor and updated providers as needed.
--- NOTE | 2019-04-14 21:28 | NUR ---
Pt c/o 06/25 pain to right knee, DAKOTA SpearP called to possibly restart home [place], order was recieved.
--- NOTE | 2019-04-14 21:53 | NUR ---
Dr. Degroot was called to clarify Amio order. want current ordered gtt to run for 24hrs at 1mg and then d/c. Will continue to monitor.
[2019-04-15] VITALS (746 sets, daily range): BP systolic 101–109; BP diastolic 55–81; PULSE 71–102; TEMP 98–99.9; O2SAT 60–100
[2019-04-15 05:38] LABS: TROPONIN-I 0.023 ng/mL (0.000-0.035)
--- NOTE | 2019-04-15 08:15 | NUR ---
PATIENT ASSESSED, VITALS TAKEN. STATES HE IS HAVING PAIN IN HIS RIGHT KNEE, I INFORMED HIM I WOULD LOOK INTO PAIN MEDICATIONS FOR HIM. DENIES CHEST PAIN, TIGHTNESS. I ASSISTED WITH SETTING UP BREAKFAST. WILL CONTINUE TO MONITOR.
--- NOTE | 2019-04-15 11:02 | NUR ---
ALYCIA met with the patient to discuss discharge plan. The patient lives in [place] with his life partner of twelve years, Amparo Keating. He states that he has one child, Veronica Lay, and that she lives here in [place]. He reports independence with ADLs and has a cane. He states that his cane has not been working well for him lately. He states that he is interested in getting a walker. ALYCIA discussed DME options and presented and explained the DME form to the patient. The patient reports that he would like to look over at the different DME companies, before making a decision. ALYCIA asked the hospitalist to order PT. The patient's PCP is Dr. Tomasa Salinas and he receives his medications from [facility]. He reports occasional difficulties affording his meds. ALYCIA discussed Good Rx and provided him with [place] information. The patient does not have advanced directives in EMR, but he states that he believes he does have them completed and that they are at his PCP's office. He states his life partner, Amparo, would be his DPOA-HC. ALYCIA contacted his PCP's office and requested a copy. The pediatric dermatologist informed SW that they do have one on file and will fax it to ICU. ALYCIA informed the patient. The patient was also interested in receiving information on orthopaedic doctors for his knee. ALYCIA provided the patient with [facility] contact information. The patient plans to return home with his life partner upon discharge. ALYCIA will need to continue to follow to assist the patient with getting a walker.
--- NOTE | 2019-04-15 13:21 | NUR ---
AMIODARONE DRIP DISCONTINUED PER DR. QIU'S ORDERS.
--- NOTE | 2019-04-15 14:33 | NUR ---
ICU received the patient's DPOA-HC, via fax, and it was placed in the patient's chart. The patient's DPOA-HC is his life partner, Amparo Keating. The alternate is his daughter, Veronica Lay.
--- NOTE | 2019-04-15 15:30 | NUR ---
REPORT GIVEN TO KENN TIPTON AT 1510 . PATIENT TAKEN TO MEDICAL FLOOR BY MYSELF VIA HOSPITAL BED AND SETTLED INTO ROOM AT 1530.
--- NOTE | 2019-04-15 18:15 | NUR ---
Pt has been napping since arriving to the floor from ICU, med rec checked, had some C/O pain and medications were given for relief.
--- NOTE | 2019-04-15 20:30 | NUR ---
Initial shift assessment done- states left knee pain 10/26 at this time- states [place] is working well, Did request a snack- given, Voiding small amounts of urine per urinal at a time- tele on- paced
[2019-04-16 03:25] VITALS: BP 123/65; PULSE 82; TEMP 99.5
--- NOTE | 2019-04-16 05:39 | NUR ---
[place] given for left knee pain 03/25- no stools during the night, Tele -paced
--- NOTE | 2019-04-16 07:12 | NUR ---
Report received from KENN Wiggins.
[2019-04-16 07:56] VITALS: BP 114/62; PULSE 85; TEMP 97.8
--- NOTE | 2019-04-16 08:43 | NUR ---
Pt awake and alert upon entry, resting in bed, no C/O pain currently, sjift assessments complete, left Pt call light in reach, bed in lowest position.
--- NOTE | 2019-04-16 11:18 | NUR ---
First visit from the selenium plant operator. No needs right now.
[2019-04-16 12:42] VITALS: BP 88/59; PULSE 73; TEMP 99
[2019-04-16 17:26] VITALS: BP 129/53; PULSE 94; TEMP 99.1
--- NOTE | 2019-04-16 18:39 | NUR ---
Pt has been resting in the bed during the day, has C/O pain in his left knee, medication given for relief, VS have remained stable.
[2019-04-16 18:51] VITALS: BP 108/64; PULSE 75; TEMP 98.3
--- NOTE | 2019-04-16 20:30 | NUR ---
Initial shift assessment done- Requesting a snack tonight, VSS, Tele on, mayo wrap to left knee-leg elevated on pillow, states pain to left knee /- [place] is working well. Continues with lower ext edema / scrotal/penile edema
[2019-04-16 23:30] VITALS: BP 118/69; PULSE 94; TEMP 98.7
[2019-04-17 04:27] VITALS: BP 116/61; PULSE 93; TEMP 98.5
--- NOTE | 2019-04-17 06:26 | NUR ---
Quiet night- has been incontinent of urine 3-4 times- cleaned up. Given [place] this morning for generalized pain
[2019-04-17 07:25] VITALS: BP 111/66; PULSE 65; TEMP 99.2
--- NOTE | 2019-04-17 10:43 | NUR ---
ALYCIA met with patient after clinical rounding to discuss SN placement. [facility] like [facility] and [facility]. ALYCIA faxed referrals to both. Patient has [employer] and needs prior auth. informed of plan.
--- NOTE | 2019-04-17 11:12 | NUR ---
Pt awake and alert upon entry, some C0O pain discomfort in left knee, shift assessments complete, left Pt call light in reach, bed in lowest position.
[2019-04-17 12:51] VITALS: BP 115/77; PULSE 92; TEMP 98.8
[2019-04-17 15:22] VITALS: BP 112/64; PULSE 92; TEMP 100.1
--- NOTE | 2019-04-17 15:33 | NUR ---
ALYCIA faxed update to Jennie at [facility]. ALYCIA will continue to follow.
--- NOTE | 2019-04-17 18:43 | NUR ---
Pt resting in bed during the day, has C/O pain in his left knee, Pt taml has some urinary incontinence, he has been using the bedpan for defication, VS have remained stable throughout the day.
--- NOTE | 2019-04-17 18:46 | NUR ---
Report given to KENN Majano.
[2019-04-17 19:32] VITALS: BP 108/66; PULSE 89; TEMP 98.3
--- NOTE | 2019-04-17 20:30 | NUR ---
PT RESTING IN BED A+OX4. REPORTS NO PAIN. NO SOA. O2 ON 2L VIA NC. VSS. 2-3+ EDEMA LEFT UPPER EXTREMITY. AND 2+ EDEMEA BILAT LEGS. TARA WRAP ON LEFT LEG. IV LEAKS AND DC, CATHETER TIP INTACT-NURSES ATTEMPTED 4X- NEW IV STARTED BY HOUSE SUP. PT BED SATURATED WITH URINE- FULL BED CHANGE. SACREAL REGION IS ESCORIATED AND RED BUT BLANCHABLE. CARLINE CARE PROVIDED. ORDERED POWER APPLIED TO PANNUS AND SACREAL REGION. PT REPORTS NO NEEDS AT THIS TIME. CALL LIGHT IN REACH
[2019-04-17 23:37] VITALS: BP 114/63; PULSE 94; TEMP 98.2
[2019-04-18 03:27] VITALS: BP 94/47; PULSE 72; TEMP 97.5
[2019-04-18 09:04] VITALS: BP 100/59; PULSE 95; TEMP 98.1
--- NOTE | 2019-04-18 09:40 | NUR ---
Pt is awake and A/Ox4. He states he is experiencing 6/10 chronic pain to left knee and back/neck. Pt repositioned at this time. Saline lock to right FA is free of complications. Pt is incontient of urine at this time, bed bath given and new linens applied. Generalized edema noted to BLE, bilateral hands, scrotum. Pt now sitting up in bed eating breakfast.
--- NOTE | 2019-04-18 11:36 | NUR ---
Pt is sleeping soundly in bed.
[2019-04-18 12:14] VITALS: BP 101/50; BP 75/42; PULSE 69; TEMP 98
--- NOTE | 2019-04-18 13:08 | NUR ---
Both [facility] and [facility] have accepted, Both are waiting on Insurance to clear in order to accept patient fully. Waiting to hear back Saturday04/20/2019
[2019-04-18 16:57] VITALS: BP 93/50; PULSE 90; TEMP 97.8
--- NOTE | 2019-04-18 18:02 | NUR ---
Pt was given PRN norco and PRN flexeril for 6/10 pain to his left knee.
[2019-04-18 19:46] VITALS: BP 112/60; PULSE 93; TEMP 97.5
--- NOTE | 2019-04-18 20:00 | NUR ---
PT RESTING IN BED A+OX4. NO PAIN AT THIS TIME. NO SOA. PT ASSISTED WITH URINAL. LINENS DRY AT THIS TIME. 2+ EDEMA NOTED IN BILAT LOWER EXTREMITIES, AND LEFT ARM. IV TO THE RIGHT FA FLUSHES WELL, NO REDNESS, NO SWELLING. LEFT KNEE REWRAPPED- REPORTS WRAP HELPS WITH PAIN. RIGHT SIDE OF PANNUS HAS A RED OPEN IRRITATION ABOUT AN INCH LONG. SACREAL REGION IS EXCORIATED AND RED BUT BLANCHABLE. 2L VIA NC -SAT STABLE. VSS. REPORTS NO NEEDS AT THIS TIME. CALL LIGHT IN REACH. FALL PRECAUTIONS IN PLACE. BED ARLM ON.
[2019-04-18 23:01] VITALS: BP 101/54; PULSE 59; TEMP 97.6
--- NOTE | 2019-04-19 | NUR ---
pt assited tith urinal- linens dry at this time.
[2019-04-19 03:51] VITALS: BP 117/51; PULSE 69; TEMP 97.6
--- NOTE | 2019-04-19 07:07 | NUR ---
PT HAD AN UNEVENTFUL NIGHT. A+OX4. INCONTINENT OF URINE- LINENS CHANGED. CARLINE CARE PROVIDED. SACREAL REGION HAS A QUARTER SIZE RED AREA. BACK HAS AN INCH SIZE IRRITATION. PILLOW PLACED ON LEFT SIDE. IV FLUSHES WELL, NO REDNESS NO SWELLING. PT REPORTS PAIN ON RIGHT HAND- PRN PAIN MEDS GIVEN. LEFT UPPER EXTREMITY 2+. BILAT LOWER EX EDEMA 2+. REPORTS NO NEEDS AT THIS TIME. CALL LIGHT IN REACH
[2019-04-19 07:53] LABS: MEAN CELL VOLUME 87 fl (80.0-100.0); MEAN CORPUSCULAR HEMOGLOBIN 30 pg (27.0-31.0); MEAN CORPUSCULAR HGB CONC 34 g/dl (33.0-37.0); PLATELET COUNT 140 K/mm3 (130-400); RED BLOOD COUNT 3.39 M/mm3 (4.20-5.60); REDCELL DISTRIBUTION WIDTH-CV 23.3 % (11.5-14.5)
[2019-04-19 07:55] LABS: HEMATOCRIT 29.5 % (42.0-52.0)
[2019-04-19 08:09] VITALS: BP 96/65; PULSE 88; TEMP 98.2
[2019-04-19 08:11] LABS: CALCIUM 7.3 mg/dL (8.4-10.2); CREATININE, serum 0.87 (0.66-1.25); MAGNESIUM 2.1 mg/dL (1.6-2.3)
[2019-04-19 08:47] LABS: BAND 8 % (0-10); LYMPHOCYTE 3 % (20.0-51.0); NEUTROPHILS 88 % (42.0-75.2)
--- NOTE | 2019-04-19 10:00 | NUR ---
Pt is awake and A/Ox4, sitting up in bed. Incontient care provided. Saline lock to right FA is free of complications. Pt states his pain is "better." Denies need for additional medications. Panis remains excoriated, powder applied. Pt denies any other needs.
[2019-04-19 12:34] VITALS: BP 114/44; BP 70/40; PULSE 69; TEMP 98.2
[2019-04-19 16:36] VITALS: BP 116/49; PULSE 80; TEMP 98.4
--- NOTE | 2019-04-19 16:48 | NUR ---
Pt has had an uneventful shift. Left hand elevated on pillow, continues to be edematous. Pain to left knee controlled by PRN flexeril and norco. Pt continues to be incontinent of urine, changed several times throughout shift.
--- NOTE | 2019-04-19 17:30 | NUR ---
Pt requested PRN norco and flexeril for 10/10 pain to the left knee, right hand, and back.
[2019-04-19 19:11] VITALS: BP 82/65; PULSE 73; TEMP 97.9
[2019-04-19 23:28] VITALS: BP 97/46; PULSE 64; TEMP 97.6
[2019-04-20] VITALS (7 sets, daily range): BP systolic 53–94; BP diastolic 42–52; PULSE 63–78; TEMP 97.5–98.9
--- NOTE | 2019-04-20 09:39 | NUR ---
Assessment completed, alert/oriented, vital signs stable, denies pain or discomfort at rest, reports left knee pain still present but is improved from having steroid injection done during this hospital stay, heart RRR/ A-paced on tele, lungs CTA/ diminished, patient is morbidly obese and heart/lung sounds are distant, left upper extrm is also very edematous/ elevating with pillows to try and help with edema, myself and physical therapist have helped him get to edge of bed and stand up a couple times, he is very activity intolerant, patient has been accepted to [facility] and [facility] facilities/ we are awating insurance approval to transfer, patient denies other needs at this time
--- NOTE | 2019-04-20 09:42 | NUR ---
SW faxed updates to [facility] and [facility]. ALYCIA will continue to follow.
--- NOTE | 2019-04-20 20:45 | NUR ---
Patient report received from Matty Leong at shift change. Upon assessment at this time patient is resting comfortably, arouses easily to verbal stimuli, A&O x 3. Tele in place, paced at 68. Left arm edematous 3+, propped on pillows. Patient on 1.5 L NC. Scrotum and penis is swollen, reddened due to incontinence. Desenex powder applied. No other needs reported/observed at this time.
--- NOTE | 2019-04-20 23:42 | NUR ---
Dr. Caceres notified of patient's low bp, last 89/52 HR 68. Order to hold tonights dose of 400 mg Amiodarone.
[2019-04-21 03:40] VITALS: BP 95/55; PULSE 76; TEMP 98.7
--- NOTE | 2019-04-21 05:41 | NUR ---
Patient report given to Matty Velasco at this time.
[2019-04-21 07:26] VITALS: BP 103/61; PULSE 71; TEMP 98.6
--- NOTE | 2019-04-21 08:53 | NUR ---
Assessment completed, alert/oriented, vital signs stable/ hypotensive and physician is aware, heart RRR/ A-paced on tele, lungs CTA/ diminished and distant as patient is morbidly obese, he is not doing very well with physical therapy and is unable to tolerate much activity, extremities are swollen and patient is incontinent of large amounts of urine and requires frequent linen changes to keep dry, we are using medicaitons/ ICE/ elevation and position changes to help with his pains and disomcforts, discharge planning for SNF placement hopefully today
[2019-04-21] MEDS ORDERED: FLEXERIL 1010 MG/TAB PO (10:02)
[2019-04-21] MEDS ORDERED: TYLENOL 325MG325 MG PO (10:03)
--- NOTE | 2019-04-21 10:05 | NUR ---
SW presented the IM form to the pt. Patient's hand was swollen and could not sign but verbalized understanding. A copy was provided to the pt and the original was placed in the chart. ALYCIA will continue to follow.
[2019-04-21] MEDS ORDERED: NORCO 325 MG-7.1 TAB PO (10:07)
[2019-04-21] MEDS ORDERED: LASIX 40MG TABL40 MG PO (10:15)
[2019-04-21 11:04] VITALS: BP 100/58; PULSE 73; TEMP 99
--- NOTE | 2019-04-21 11:45 | NUR ---
The pt is to discharge today, [facility]6 to [facility] for [facility] skilled stay. [facility] will transport pt at 1400. ALYCIA informed, PA, pt's nurse and the pt and all were in agreeance. SW faxed discharge orders. There are no additional needs at this time.
--- NOTE | 2019-04-21 15:34 | NUR ---
patient dicharging and transferring to [facility], I have called report to receiving nurse, IV and tele discontinue prior to him leaving
== END 2019-04-21 15:35 | DRG 308 ==
LOC: COL.ER 05:53 → MEDICAL 06:55 → ICU 06:55 → MEDICAL 04-15 15:30
PROVIDERS: Emergency Medicine; Physician Assistant; ADMIT Internal Medicine
PROC: 5A2204Z Restoration of Cardiac Rhythm, Single (ICD-10-PCS; principal; 2019-04-14)
PROC: 3E0U33Z Introduction of Anti-inflammatory into Joints, Percutaneous Approach (ICD-10-PCS; 2019-04-17)
PROC: 3E0U3BZ Introduction of Anesthetic Agent into Joints, Percutaneous Approach (ICD-10-PCS; 2019-04-17)
DX: I48.91 Unspecified atrial fibrillation (principal); I50.23 Acute on chronic systolic (congestive) heart failure; I11.0 Hypertensive heart disease with heart failure; E78.5 Hyperlipidemia, unspecified; E66.9 Obesity, unspecified; I25.10 Atherosclerotic heart disease of native coronary artery without angina pectoris; K21.9 Gastro-esophageal reflux disease without esophagitis; N40.0 Benign prostatic hyperplasia without lower urinary tract symptoms; E87.6 Hypokalemia; I08.0 Rheumatic disorders of both mitral and aortic valves; G89.29 Other chronic pain; M17.12 Unilateral primary osteoarthritis, left knee; Z95.0 Presence of cardiac pacemaker; Z98.0 Intestinal bypass and anastomosis status; Z90.49 Acquired absence of other specified parts of digestive tract; Z92.21 Personal history of antineoplastic chemotherapy; Z85.038 Personal history of other malignant neoplasm of large intestine; Z87.891 Personal history of nicotine dependence; Z88.0 Allergy status to penicillin; Z88.5 Allergy status to narcotic agent; Z95.5 Presence of coronary angioplasty implant and graft; Z85.6 Personal history of leukemia; Z79.01 Long term (current) use of anticoagulants; Z79.82 Long term (current) use of aspirin; I25.2 Old myocardial infarction
CPT/HCPCS: 99223-AI; 99232-AI; 99239; J0282; J2704; J3480; J7060

== ENCOUNTER 2019-04-27 14:15 | Inpatient (IN) | payer MEDICARE, MEDICAID ==
[~2019-04-27] VITALS: Ht 180.3 cm; Wt 139.0 kg
[2019-04-27] VITALS (11 sets, daily range): BP systolic 102–109; BP diastolic 61–65; PULSE 63–77; TEMP 97.7–97.9; O2SAT 95–100
[~2019-04-27 14:15] MED LIST changes: +FLEXERIL 1010 MG/TAB PO; +TYLENOL 325MG325 MG PO
[2019-04-27 15:13] LABS: HEMATOCRIT 24.8 % (42.0-52.0); HEMOGLOBIN 8.9 g/dl (13.5-18.0); MEAN CELL VOLUME 83 fl (80.0-100.0); MEAN CORPUSCULAR HEMOGLOBIN 30 pg (27.0-31.0); MEAN CORPUSCULAR HGB CONC 36 g/dl (33.0-37.0); PLATELET COUNT 148 K/mm3 (130-400); RED BLOOD COUNT 2.99 M/mm3 (4.20-5.60); REDCELL DISTRIBUTION WIDTH-CV 21.9 % (11.5-14.5)
[2019-04-27 15:15] LABS: INR 2.6 (0.8-3.0); PROTHROMBIN TIME 31.8 SECONDS (9.7-12.8)
[2019-04-27 15:23] LABS: ALBUMIN 2.1 gm/dL (3.5-5.0); BILIRUBIN,TOTAL 2.9 mg/dL (0.0-1.0); POTASSIUM 5.7 mmol/L (3.4-5.0); TOTAL PROTEIN 5.7 gm/dL (6.4-8.2)
[2019-04-27 15:29] LABS: CREATININE, serum 3.2 (0.66-1.25)
[2019-04-27 15:34] LABS: TROPONIN-I 0.016 ng/mL (0.000-0.035)
--- NOTE | 2019-04-27 15:34 | NUR ---
Patient was brought [place] [facility]. SW contatced patient's family, Amparo-life partner and Veronica-daughter. SW provided support to patient's family, as patient's life partner was very upset upon arrival to the ED. SW provided updates to family until the ED doctor was able to meet with them. Patient will be trasnferred to the ICU.
[2019-04-27 15:35] LABS: ANISOCYTOSIS 3+; LYMPHOCYTE 7 % (20.0-51.0); NEUTROPHILS 93 % (42.0-75.2); NUCLEATED RED BLOOD CELL 1 (0-6); PLATELET ESTIMATE DECREASED (NORMAL)
[2019-04-27 15:36] LABS: BURR CELLS 2+
[2019-04-27 15:37] LABS: HELMET CELLS 1+; MICROCYTOSIS 2+; TEAR DROP CELLS 1+
--- NOTE | 2019-04-27 15:37 | NUR ---
Initial visit; Patient brought into Emergency Room; Calibration Engineer offered prayer for Patrick and Spiritual Care for his family.
--- NOTE | 2019-04-27 17:30 | NUR ---
PICC intact right upper arm. Since catheter pulled back to 1 cm marking on catheter. Site is oozing light red drainage. With sterile technique right upper arm PICC dressing change done with large amount of serous red drainage inside noted. Site cleansed with ChloraPrep 1, chlorhexidine impregnated disc applied, skin prep, StatLock, and Tegaderm applied. Pressure dressing applied on top of catheter with 4 x 4's. Arm wrapped with Miki to protect catheter. No further drainage noted. We will continue to monitor.
--- NOTE | 2019-04-27 17:45 | NUR ---
PT ARRIVES FROM ED VIA STRETCHER. KATIE LIFT IS UNDER PT. PT HAS WILDER THROUGHOUT BODY. SIGNIFICANT EDEMA IS IN PTS LEFT ARM AT 3-4+, RIGHT ARM IS 2+ EDEMA, BILAT LOWER EXTREMITIES ARE 4+. BRUISES ARE ON LEFT SHOULDER, RIGHT ENTIRE ARM, RIGHT BOLDEN, AND RIGHT INNER THIGH. PT STATES PAIN IN LOWER LEGS IS 10/10 AND DESCRIBES IT STABBING. PT IS A&O X4.
[2019-04-27 18:07] LABS: COLLECTION METHOD CLEAN CATCH
[2019-04-27 18:21] LABS: MUCOUS Present /lpf; PH 5 (5-8); SQUAMOUS EPITHELIAL None Seen /hpf; URINE APPEARANCE Cloudy; URINE BACTERIA None Seen /hpf; URINE BILIRUBIN Negative (NEGATIVE); URINE BLOOD 3+ (NEGATIVE); URINE COLOR Amber; URINE GLUCOSE Negative (NEGATIVE); URINE KETONE Negative (NEGATIVE); URINE LEUKOCYTE ESTERASE Negative (NEGATIVE); URINE NITRATE Negative (NEGATIVE); URINE PROTEIN(semi-quant) Negative (NEGATIVE); URINE RBC >50 /hpf; URINE WBC 20-50 /hpf
--- NOTE | 2019-04-27 19:00 | NUR ---
Dr. Degroot at bedside to round on patient. VORB as entered. Care ongoing.
--- NOTE | 2019-04-27 19:30 | NUR ---
Bedside report recieved from KENN Beaulieu. Patient is lethargic but oriented x4 when awake. Family is at bedside and participates in report. Care assumed.
--- NOTE | 2019-04-27 19:39 | NUR ---
Dr. Nuno notified of consult. States he will be in to see patient shortly. Care ongoing.
[2019-04-27 20:12] LABS: CREATINE KINASE 64 U/L (55-170); LACTATE DEHYDROGENASE 500 U/L (313-618)
--- NOTE | 2019-04-27 20:15 | NUR ---
Dr. Nuno rounds on patient at this time. Orders as entered CPOE. MD holds lengthy conversation with patient, daughter and significant other regarding code status and patient's wishes. Patient verbalizes wishes to be full code during this stay. POC is disucsses and all questions asked are answered.
--- NOTE | 2019-04-27 20:20 | NUR ---
Dr. Amezquita is notified by phone of consult. States he will review patient labs and contact Dr. Nuno by phone. Care ongoing.
--- NOTE | 2019-04-27 20:38 | NUR ---
Dr. Nichols is called and provided update to changes in POC following consults.
[2019-04-27 21:49] LABS: ARTERIAL BLD GAS O2 SATURATION 95.8 % (92-100); ARTERIAL BLD GAS TCO2 CT 18.2; ARTERIAL BLOOD GAS BASE EXCESS -6.7 (-2-2); ARTERIAL BLOOD GAS HCO3 17.3 meq/L (22-26); ARTERIAL BLOOD GAS PCO2 29.2 mmHg (35-45); ARTERIAL BLOOD GAS PO2 91.7 mmHg (80-100); ARTERIAL BLOOD GAS pH 7.39 (7.35-7.45)
[2019-04-27 23:16] LABS: HEMATOCRIT 22.8 % (42.0-52.0); HEMOGLOBIN 8.1 g/dl (13.5-18.0)
[2019-04-27 23:26] LABS: MAGNESIUM 2.1 mg/dL (1.6-2.3); PHOSPHOROUS 7.8 mg/dL (2.5-4.5); POTASSIUM 5.4 mmol/L (3.4-5.0)
[2019-04-27 23:31] LABS: CREATININE, serum 3.25 (0.66-1.25)
[2019-04-28] VITALS (653 sets, daily range): BP systolic 97–106; BP diastolic 47–67; PULSE 66–82; TEMP 97.6–98.2; O2SAT 75–100
[2019-04-28 03:20] LABS: MAGNESIUM 2.2 mg/dL (1.6-2.3); PHOSPHOROUS 7.9 mg/dL (2.5-4.5); POTASSIUM 5.2 mmol/L (3.4-5.0)
[2019-04-28 03:26] LABS: CREATININE, serum 3.12 (0.66-1.25)
[2019-04-28 05:23] LABS: MEAN CELL VOLUME 84 fl (80.0-100.0); MEAN CORPUSCULAR HGB CONC 35 g/dl (33.0-37.0); PLATELET COUNT 166 K/mm3 (130-400); RED BLOOD COUNT 2.77 M/mm3 (4.20-5.60); REDCELL DISTRIBUTION WIDTH-CV 21.6 % (11.5-14.5)
[2019-04-28 05:29] LABS: HEMATOCRIT 23.3 % (42.0-52.0); HEMOGLOBIN 8.1 g/dl (13.5-18.0); MEAN CORPUSCULAR HEMOGLOBIN 29 pg (27.0-31.0)
[2019-04-28 05:38] LABS: ALBUMIN 2.1 gm/dL (3.5-5.0); BILIRUBIN UNCONJUGATED 1.4 mg/dL (0.0-1.1); BILIRUBIN,DIRECT 0.8 mg/dL (0.0-0.4); BILIRUBIN,TOTAL 2.2 mg/dL (0.0-1.0); TOTAL PROTEIN 5.6 gm/dL (6.4-8.2)
[2019-04-28 06:08] LABS: INR 2.2 (0.8-3.0); PROTHROMBIN TIME 26.8 SECONDS (9.7-12.8)
[2019-04-28 06:10] LABS: PARTIAL THROMBOPLASTIN TIME 36.8 SECONDS (26.0-37.0)
--- NOTE | 2019-04-28 07:21 | NUR ---
Report provided to KENN De Los Santos.
[2019-04-28 07:24] LABS: ANISOCYTOSIS 3+; LYMPHOCYTE 2 % (20.0-51.0); NEUTROPHILS 97 % (42.0-75.2); PLATELET ESTIMATE NORMAL (NORMAL)
[2019-04-28 07:25] LABS: BURR CELLS 1+
[2019-04-28 07:37] LABS: CALCIUM 6.1 mg/dL (8.4-10.2); MAGNESIUM 2.1 mg/dL (1.6-2.3)
--- NOTE | 2019-04-28 08:00 | NUR ---
Shift assessment complete at this time. Plan of care reviewed at bedside with patient. Additional time taken to address any other needs or concerns. Pt denies pain or any other discomfort. Vitals stable at this time. Bed in low position, call light within reach, will continue to monitor.
--- NOTE | 2019-04-28 08:20 | NUR ---
PICC intact right upper arm. Moderate amount of red drainage noted. With sterile technique right upper arm PICC dressing change done with insertion site cleansed with ChloraPrep 1, chlorhexidine impregnated disc applied, skin prep, StatLock, and Tegaderm applied. Light red oozing at insertion site reinforced with 4 x 4's and wrapped with an Miki. We'll continue to monitor.
--- NOTE | 2019-04-28 12:30 | NUR ---
Shift reassessment complete at this time. No changes from previous assessment noted. Vitals stable. Pt denies pain or any other discomforts. Bed in low position, call light within reach, will continue to monitor.
[2019-04-28 15:52] LABS: HEMATOCRIT 21.3 % (42.0-52.0); HEMOGLOBIN 7.6 g/dl (13.5-18.0)
--- NOTE | 2019-04-28 16:00 | NUR ---
Shift reassessment complete at this time. No changes from previous assessment noted. Vitals stable at this time. Denies pain or any other discomfort. Bed in low position, call light within reach. Will continue to monitor.
[2019-04-28 16:05] LABS: POTASSIUM 4.3 mmol/L (3.4-5.0)
[2019-04-28 16:13] LABS: CREATININE, serum 3.01 (0.66-1.25)
--- NOTE | 2019-04-28 17:26 | NUR ---
ALYCIA contacted patient's life partner/DPOA, Amparo, to discuss discharge planning. Prior to admission, patient was in skilled care at [facility]. Amparo reports that she would like patient to return to [facility] to continue therapy. Amparo reports the second choice would be [facility]. ALYCIA completed choice form. ALYCIA will contact both [facility] and [facility]. Prior to being admitted to [facility] for skilled care, patient lived at home with Amparo. Patient's PCP is Dr Roxane Salinas and he obtained prescriptions from [facility]. Patient used a walker or cane for mobility. No home health services reported. Patient's DPOA-HC is Amparo Keating and his daughter Veronica.
--- NOTE | 2019-04-28 19:25 | NUR ---
Bedside report given to KENN Pritchett.
--- NOTE | 2019-04-28 21:00 | NUR ---
Bloody drainage noted around PICC site. Instructed to not change dressing just re-inforce with guaze. Bloody guaze removed and fresh guaze placed and wrapped. Will continue to monitor.
--- NOTE | 2019-04-28 22:00 | NUR ---
Assisted with repositioning and isabel-care. Will continue to monitor.
[2019-04-28 22:34] LABS: HEMATOCRIT 20.4 % (42.0-52.0); HEMOGLOBIN 7.3 g/dl (13.5-18.0)
[2019-04-28 22:47] LABS: POTASSIUM 3.9 mmol/L (3.4-5.0)
[2019-04-28 22:53] LABS: CREATININE, serum 2.86 (0.66-1.25)
[2019-04-28 22:59] LABS: CALCIUM 5.8 mg/dL (8.4-10.2)
[2019-04-29] VITALS (1219 sets, daily range): BP systolic 83–127; BP diastolic 44–84; PULSE 59–92; TEMP 97–98.5; O2SAT 85–100
--- NOTE | 2019-04-29 01:00 | NUR ---
Bestaze around PICC site saturated with blood. Changed dressing again at this time.
[2019-04-29 05:39] LABS: MEAN CELL VOLUME 85 fl (80.0-100.0); MEAN CORPUSCULAR HGB CONC 35 g/dl (33.0-37.0); MEAN PLATELET VOLUME 12.2 fl (7.4-10.4); PLATELET COUNT 201 K/mm3 (130-400); REDCELL DISTRIBUTION WIDTH-CV 22.2 % (11.5-14.5)
[2019-04-29 05:40] LABS: HEMATOCRIT 20.4 % (42.0-52.0); HEMOGLOBIN 7.2 g/dl (13.5-18.0); MEAN CORPUSCULAR HEMOGLOBIN 30 pg (27.0-31.0)
[2019-04-29 05:46] LABS: INR 1.7 (0.8-3.0); PROTHROMBIN TIME 19.6 SECONDS (9.7-12.8)
[2019-04-29 06:02] LABS: BAND 2 % (0-10); LYMPHOCYTE 1 % (20.0-51.0); NEUTROPHILS 92 % (42.0-75.2)
[2019-04-29 06:03] LABS: ANISOCYTOSIS 3+; PLATELET ESTIMATE NORMAL (NORMAL)
[2019-04-29 06:04] LABS: ALBUMIN 1.9 gm/dL (3.5-5.0); BILIRUBIN UNCONJUGATED 0.5 mg/dL (0.0-1.1); BILIRUBIN,DIRECT 0.7 mg/dL (0.0-0.4); BILIRUBIN,TOTAL 1.2 mg/dL (0.0-1.0); BURR CELLS 1+; POTASSIUM 3.9 mmol/L (3.4-5.0); TOTAL PROTEIN 5.1 gm/dL (6.4-8.2)
[2019-04-29 06:05] LABS: TARGET CELLS 1+
[2019-04-29 06:06] LABS: NUCLEATED RED BLOOD CELL 1 (0-6)
[2019-04-29 06:07] LABS: CALCIUM 5.7 mg/dL (8.4-10.2)
[2019-04-29 06:08] LABS: SCHISTOCYTES 1+
[2019-04-29 06:09] LABS: CREATININE, serum 2.85 (0.66-1.25)
[2019-04-29 06:35] LABS: MAGNESIUM 2.2 mg/dL (1.6-2.3); PHOSPHOROUS 7.5 mg/dL (2.5-4.5)
--- NOTE | 2019-04-29 07:40 | NUR ---
Report given to KENN Coronado. Patient care transfered.
--- NOTE | 2019-04-29 08:45 | NUR ---
PICC intact right upper arm. PICC insertion site is oozing fairly clear red serous fluid. with sterile technique right upper arm PICC dressing change done with insertion site cleansed with ChloraPrep 1, large amount of congealed red drainage around StatLock. Substance removed. Area cleansed with alcohol swallow's. Chlorhexidine impregnated disc applied, skin prep, and Tegaderm applied. Pressure held at site. Arm wrapped with an ABD bandage. No other signs or symptoms of IV complications noted. No concerns voiced. Arm wrapped with Coban and to protect catheter.
--- NOTE | 2019-04-29 08:56 | NUR ---
Follow-up visit; Patient thanked Certified Alcohol Counselor for being with him in the Emergency Room and thanked her for keeping him in her prayers. Certified Alcohol Counselor will follow up.
--- NOTE | 2019-04-29 12:51 | NUR ---
SW followed up with patient about discharge plan. SW reported she spoke with patient's LP, Amparo, about skilled and her choices. Patient is agreeable to return to skilled at [facility]. ALYCIA contacted [facility] and faxed updates. SW also faxed a referral to [facility] (second choice).
--- NOTE | 2019-04-29 13:00 | NUR ---
Patient intact right upper arm. Continue to ooze light red drainage from site. With sterile technique right upper arm PICC dressing change done with insertion site cleansed with ChloraPrep 1, hemostatic gauze applied, pressure held, 4 x 4 applied, and Tegaderm applied. An extra Tegaderm applied on top of dressing. ABD applied. wrapped with Coban and. No other signs or symptoms of IV complications noted. No concerns voiced. Would consider a PICC exchange in a.m.
[2019-04-29 16:00] LABS: HEMATOCRIT 22.8 % (42.0-52.0)
--- NOTE | 2019-04-29 16:05 | NUR ---
MD Bia and MD Cain notified of repeat H&H lab result improvement - no new orders
--- NOTE | 2019-04-29 19:20 | NUR ---
Bedside report received from KENN Coronado.
--- NOTE | 2019-04-29 20:00 | NUR ---
Patient asleep on enterance into the room. Awakens easily to name. Vitals are stable. Assessment complete. Lungs are clear in upper lobes bilaterally with diminished bases. HR and rhythm regular with normal S1 and S2, he is A-Paced. Bowel sounds are active x4. Patient is very edematous in all extremities with weeping present. Pads used in skin folds and under extremities to control weeping. Patient has no further needs at this time. Will continue to monitor. Call light within reach.
[2019-04-30] VITALS (142 sets, daily range): BP systolic 92–119; BP diastolic 51–81; PULSE 57–88; TEMP 97.6–98.9; O2SAT 90–100
--- NOTE | 2019-04-30 | NUR ---
Patient had a large stool. Patient cleaned up with new pads placed under him. Vitals remain stable. Patient was having pain with movement, but has improved. Patient requesting some water and a banana, assisted with both. Once finished he was placed on BiPAP. No further needs at this time. Will continue to monitor. Call light within reach.
--- NOTE | 2019-04-30 04:00 | NUR ---
Patient sleeping comfortably on BiPAP. Awakens to name. No complaints of pain. Patient states he is comfortable. Vitals remain stable. No further needs. Will continue to monitor. Call light within reach.
[2019-04-30 05:33] LABS: BASO % 0.1 % (0.0-2.0); GRAN # 6.8 (1.4-6.5); GRAN % 94.3 % (42.2-75.2); LYMPH # 0.2 (1.2-3.4); LYMPH % 2.9 % (20.0-51.0); MEAN CELL VOLUME 85 fl (80.0-100.0); MEAN CORPUSCULAR HGB CONC 34 g/dl (33.0-37.0); MEAN PLATELET VOLUME 12.8 fl (7.4-10.4); MONO # 0.1 (0.1-0.6); MONO % 1.9 % (1.7-9.3); PLATELET COUNT 236 K/mm3 (130-400); RED BLOOD COUNT 2.85 M/mm3 (4.20-5.60); REDCELL DISTRIBUTION WIDTH-CV 21.3 % (11.5-14.5)
[2019-04-30 05:34] LABS: HEMATOCRIT 24.3 % (42.0-52.0); HEMOGLOBIN 8.3 g/dl (13.5-18.0); MEAN CORPUSCULAR HEMOGLOBIN 29 pg (27.0-31.0)
[2019-04-30 05:38] LABS: INR 1.3 (0.8-3.0); PROTHROMBIN TIME 15.1 SECONDS (9.7-12.8)
[2019-04-30 05:41] LABS: PARTIAL THROMBOPLASTIN TIME 32.1 SECONDS (26.0-37.0)
[2019-04-30 05:43] LABS: BILIRUBIN,TOTAL 1.2 mg/dL (0.0-1.0); CALCIUM 6.4 mg/dL (8.4-10.2); CREATININE, serum 2.49 (0.66-1.25); POTASSIUM 3.5 mmol/L (3.4-5.0); TOTAL PROTEIN 5.3 gm/dL (6.4-8.2)
--- NOTE | 2019-04-30 07:19 | NUR ---
Bedside report given to KENN Coronado
--- NOTE | 2019-04-30 09:05 | NUR ---
No further drainage noted from PICC insertion site. with sterile technique right upper arm PICC dressing change done with insertion site cleansed with chloraprep x 1, special dressing removed, chlorhexidine impregnated disk applied, skin prep, stat lock, and tegaderm applied. no signs or sypmptoms of IV complications noted. no concerns voiced. to continue to monitor.
--- NOTE | 2019-04-30 09:06 | NUR ---
Follow-up visit; Patient thanked Cyber Intelligence Analyst for offering encouragement and prayer again this morning. Patient is alert and appears optimistic about his recovery.
--- NOTE | 2019-04-30 12:57 | NUR ---
flow worker met with patient and provided written and verbal information on [facility], long-term acute hospitalization. Patient verbalizes understanding and is agreeable. Worker gave Shay/[facility] a referral to include faxed clinical information. Worker has attempted to contact, durable power of managing attorney/significant other (Amparo), per patient's request, however she is not answering her phone at this time. Worker collaborated with nurse, Cliff, regarding the above inforamtion. Shay with [facility] will be at the hospital today at 1:00. Will await [facility] screening.
--- NOTE | 2019-04-30 18:30 | NUR ---
Pt up to floor from ICU this afternoon, no C/O pain, Pt had bowl movement of diarrhea this afternoon. Pt napped when settled in.
[2019-05-01] VITALS (7 sets, daily range): BP systolic 87–119; BP diastolic 39–62; PULSE 41–89; TEMP 97.4–98.5
--- NOTE | 2019-05-01 02:25 | NUR ---
PRN [place] given for pain at this time. Patient readjusted in bed. Call light within reach.
--- NOTE | 2019-05-01 05:46 | NUR ---
Report received from KENN Charles. Resting in bed. Assessment completed. Bowels active. Alert and oriented. Bilateral legs weeping. PICC flushed. Patient had episode of incontinence. Chux changed. Denies pain at this time. Denies further needs at this time. Call light within reach.
--- NOTE | 2019-05-01 05:47 | NUR ---
Patient had uneventful night. Resting in bed. Episode of incontinence throughout night. Chux was changed. PRN norco given. Call light within reach.
[2019-05-01 06:11] LABS: MEAN CELL VOLUME 88 fl (80.0-100.0); MEAN CORPUSCULAR HGB CONC 34 g/dl (33.0-37.0); MEAN PLATELET VOLUME 12.3 fl (7.4-10.4); PLATELET COUNT 212 K/mm3 (130-400); RED BLOOD COUNT 2.59 M/mm3 (4.20-5.60); REDCELL DISTRIBUTION WIDTH-CV 21.3 % (11.5-14.5)
[2019-05-01 06:12] LABS: HEMATOCRIT 22.7 % (42.0-52.0); HEMOGLOBIN 7.7 g/dl (13.5-18.0); MEAN CORPUSCULAR HEMOGLOBIN 30 pg (27.0-31.0)
[2019-05-01 06:21] LABS: INR 1.2 (0.8-3.0); PROTHROMBIN TIME 14.6 SECONDS (9.7-12.8)
[2019-05-01 06:27] LABS: CALCIUM 6.7 mg/dL (8.4-10.2); CREATININE, serum 2.35 (0.66-1.25); MAGNESIUM 2.1 mg/dL (1.6-2.3); PHOSPHOROUS 7.3 mg/dL (2.5-4.5)
[2019-05-01 06:29] LABS: POTASSIUM 2.2 mmol/L (3.4-5.0)
[2019-05-01 06:42] LABS: LYMPHOCYTE 1 % (20.0-51.0); NEUTROPHILS 99 % (42.0-75.2)
[2019-05-01 06:43] LABS: ANISOCYTOSIS 2+; PLATELET ESTIMATE NORMAL (NORMAL); POIKILOCYTOSIS 1+; TARGET CELLS 1+
--- NOTE | 2019-05-01 06:58 | NUR ---
Report given to KENN Charles.
--- NOTE | 2019-05-01 08:59 | NUR ---
Shay, from [facility], reports that he is waiting on authorization from the patient's insurance. SW to continue to follow.
--- NOTE | 2019-05-01 11:29 | NUR ---
Pt resting in bed, no C/O pain at this time, shift assessments complete, left Pt call light in reach, bed in lowest position.
--- NOTE | 2019-05-01 20:08 | NUR ---
Pt resting in the room in bed today, he has had several very loose stools, has some C/O pain, VS have remained stable.
--- NOTE | 2019-05-01 20:10 | NUR ---
Repot given to KENN Majano.
--- NOTE | 2019-05-01 23:00 | NUR ---
PT RESTING IN BED A+O4. REPORTED GENERAL MUSCLE PAIN 5-6/10- PRN PAIN MEDS GIVEN. TURNING PT NEEDED. DIME SIZE SORE X2 ON TESTICLES. CARLINE CARE PROVIDED. LINENS DRY AT THIS TIME. TOMAS DRAINING FREELY, NO KINKS, SECURED TO RIGHT LEG. CLEAR YELLOW URINE NOTED. SECREAL REGION RED BUT BLANCHABLE- NO SKIN BREAKDOWN NOTED. HEEL FLOATED- SKIN INTACT. PEDAL PULSES PALPATED 1+. BLL FINE CRACKLES. BUL CLEAR. PT ON O2 VIA NC. VSS. TELE ON. BOWEL SOUNDS HEARD THROUGHOUT ABD. 3-4+ EDEMA NOTED IN BLE. 3+ EDEMA NOTED ON LEFT UPPER EXTREMITY. WEEPING NOTED IN BLE AND LUE. NEURO CHECKS INSIGNIFICANT. REPORTS NO NEEDS AT THIS TIME. CALL LIGHT IN REACH
[2019-05-02 04:20] VITALS: BP 120/89; PULSE 63; TEMP 97.7
--- NOTE | 2019-05-02 04:30 | NUR ---
PICC FLUSHED WELL, BLOOD RETURN NOTED X2- RIGHT ARM BRUISED THROUGHOUT. PT REPORTS SORE THROAT- THROAT ASSESSED- SORES NOTED. RAJESH BANK ANALYST NOTIFIED= STREP SWAB AND PRN [place]. SPRAY ORDERED. HOUSE NOTIFIED FOR SPRAY FROM PHARM. NO NEEDS AT THIS TIME. TURNED PT AT THIS TIME.
[2019-05-02 05:38] LABS: STREP SCREEN NEGATIVE
--- NOTE | 2019-05-02 06:31 | NUR ---
PT HAD AN UNEVENTFUL NIGHT. A+OX4. REPORTED PAIN- PRN MEDS GIVEN. TURNED PT THROUGHOUT NIGHT. NO BM DURING NIGHT. BOWELS AUDIBLE THROUGHOUT ABD. PT LINENS DRY AT THIS TIME. 3-4+ EDEMA IN BLE, WEEPING NOTED. LUE 3+ EDEMA, WEEPING NOTED. CARLINE CARE PROVIDED. SCROTUM HAS 2 DIME SIZE SORES. SACREAL REGION RED BUT BLANCHABLE. PEDAL PULSES 1+. 2L VIA NC, NO SOA, SAT STABLE. VSS. BLL FINE CRACKLES. ULB CLEAR. PICC FLUSHES WELL, BLOOD RETURN NOTED. NO NEEDS AT THIS TIME. CALL LIGHT IN REACH
--- NOTE | 2019-05-02 07:15 | NUR ---
Report received, patient resting in bed, did request pain medication for generalized pain. Call light and personal items are within reach.
--- NOTE | 2019-05-02 07:30 | NUR ---
REPORT GIVEN TO KENN DREW
[2019-05-02 08:32] VITALS: BP 101/53; PULSE 65; TEMP 98
[2019-05-02 10:24] LABS: MEAN CELL VOLUME 89 fl (80.0-100.0); MEAN CORPUSCULAR HGB CONC 33 g/dl (33.0-37.0); MEAN PLATELET VOLUME 11.5 fl (7.4-10.4); PLATELET COUNT 194 K/mm3 (130-400); RED BLOOD COUNT 2.81 M/mm3 (4.20-5.60); REDCELL DISTRIBUTION WIDTH-CV 21.1 % (11.5-14.5)
[2019-05-02 10:25] LABS: HEMATOCRIT 24.9 % (42.0-52.0); HEMOGLOBIN 8.3 g/dl (13.5-18.0); MEAN CORPUSCULAR HEMOGLOBIN 30 pg (27.0-31.0)
[2019-05-02 10:35] LABS: CALCIUM 6.9 mg/dL (8.4-10.2); CREATININE, serum 2.11 (0.66-1.25); MAGNESIUM 2.1 mg/dL (1.6-2.3)
[2019-05-02 10:42] LABS: ANISOCYTOSIS 2+; LYMPHOCYTE 4 % (20.0-51.0); NEUTROPHILS 90 % (42.0-75.2); PLATELET ESTIMATE NORMAL (NORMAL)
[2019-05-02 10:43] LABS: POTASSIUM 2.4 mmol/L (3.4-5.0)
[2019-05-02 12:49] VITALS: BP 114/54; PULSE 92; TEMP 98
--- NOTE | 2019-05-02 19:24 | NUR ---
Report given, assisted patient onto bedpan. No other needs verbalized. Call light and personal items are within reach.
--- NOTE | 2019-05-02 20:00 | NUR ---
PT RESTING IN BED A+OX4. REPORTS 5/10 PAIN- PRN NORCO GIVEN. PT REQUEST BEDPAN X2. SACREAL REGION- RED, NO SKIN BREAKDOWN. SCROTUM HAS PEA-DIME SIZE SORES. TOMAS DRAINING FREELY, NO KINKS. SECURED TO LEG. CARLINE CARE PROVIDED. 3+ EDEMA BLE. PEDAL PPULSES 1+. LUE 1-2+ EDEMA. REDIAL PULSES 2+. PICC FLUSHES WELL, BLOOD RETURN NOTED X2. PT REPROTS NO SOA. 2L O2 VIA NC. VSS. LUNGS CLEAR X4. BOWEL SOUNDS HEARD THROUGHOUT. HEART RRR. TELE ON. NO NEEDS AT THS TIME. CALL LIGHT IN REACH
[2019-05-02 22:14] VITALS: BP 105/63; PULSE 74; TEMP 97.9
--- NOTE | 2019-05-02 22:14 | NUR ---
PT O2 SAT 100% DECREASED O2 FROM 2L TO 1L VIA NC. WILL CONTINUE TO MONITOR
--- NOTE | 2019-05-02 23:00 | NUR ---
REPORTED 2.7 K+ TO Phuong SUPERVISOR BRINE- ORDER TO DO AN ADDITIONAL DOSE PER POTASSIUM PROTOCOL.
[2019-05-03] VITALS (7 sets, daily range): BP systolic 90–113; BP diastolic 40–60; PULSE 54–69; TEMP 97.4–97.9
--- NOTE | 2019-05-03 05:15 | NUR ---
PT HAD AN UNEVENTFUL NIGHT. REPORTED MINIMAL PAIN. PAIN IN THROAT- PRN CHLORISEPTIC SPRAY GIVEN. TURNING PT THROUGHOUT THE NIGHT- WHEN PT ALLOWED. SACREAL REGION RED BUT NO SKIN BREAKDOWN. 3+ EDEMA IN BLL. 2+ PEMA EDEMA. O2 VIA NC- SAT STABLE. VSS. PICC FLUSHES WELL, BLOOD RETURN NOTED X2. TOMAS DRAINING WELL, NO KINKS, SECURED TO LEG. CLEAR YELLOW URINE NOTED. REPORTS NO NEEDS AT THIS TIME. CALL LIGHT IN REACH
[2019-05-03 06:11] LABS: GRAN # 6.2 (1.4-6.5); GRAN % 92.3 % (42.2-75.2); LYMPH # 0.3 (1.2-3.4); LYMPH % 4.9 % (20.0-51.0); MEAN CELL VOLUME 90 fl (80.0-100.0); MEAN CORPUSCULAR HGB CONC 33 g/dl (33.0-37.0); MEAN PLATELET VOLUME 12.1 fl (7.4-10.4); MONO # 0.2 (0.1-0.6); MONO % 2.4 % (1.7-9.3); PLATELET COUNT 188 K/mm3 (130-400); RED BLOOD COUNT 2.83 M/mm3 (4.20-5.60); REDCELL DISTRIBUTION WIDTH-CV 21.1 % (11.5-14.5)
[2019-05-03 06:17] LABS: HEMATOCRIT 25.4 % (42.0-52.0); HEMOGLOBIN 8.4 g/dl (13.5-18.0); MEAN CORPUSCULAR HEMOGLOBIN 30 pg (27.0-31.0)
[2019-05-03 06:30] LABS: CALCIUM 7.2 mg/dL (8.4-10.2); CREATININE, serum 1.97 (0.66-1.25); MAGNESIUM 2.1 mg/dL (1.6-2.3); POTASSIUM 3.2 mmol/L (3.4-5.0)
--- NOTE | 2019-05-03 07:04 | NUR ---
REPORT GIVEN TO KENN DREW
--- NOTE | 2019-05-03 18:11 | NUR ---
Patient has had uneventful shift, has rested most of the day. Call light and personal items are within reach.
--- NOTE | 2019-05-03 21:21 | NUR ---
PT RESTING IN BED A+OX4. REPORTS MINIMAL PAIN AND NO NEEDS FOR PAIN INTERVENTION. LUE 2+ EDEMA. BLE 3+ EDEMA. RADIAL AND PEDAL PULSES PALPATED. LUNGS CLEAR X4. BOWEL SOUNDS AUDIBLE THROUGHOUT. PT REQUESTED BEDPAN- NO BM AT THIS TIME. PT HAS A 1/2 SORE ON SACREAL REGION. BARRIER CREAM APPLIED. TURNING Q2H. PICC FLUSHES WELL, BLOOD RETURN NOTED. K+ CRITICAL- CALLED RAJESH MODEL ARTISTS'- REPEATED K+ PROTOCOL PER RAJESH MODEL ARTISTS' ORDER. TELE ON. PT ON 1.2L VIA NC. SKIN INTACT BEHIND EARS AND NOSE. NO SOA. NEURO CHECKS INSIGNIFICANT. NO NEEDS AT THIS TIME. CALL LIGHT INREACH
--- NOTE | 2019-05-04 02:00 | NUR ---
PT CONFUSED, PULLED TELE OFF, PULLED IV OUT, PULLED CLOTHES OFF. ORIENTED PT, PLACED BRIEF, GOWN AND TELE ON. IV STARTED BY SHANITA RN 22G TO THE LEFT FORARM. PT REQUESTED TO USED THE BATHROOM- ASSISTED X2 WITH GAITBELT. GAIT NOT STEADY. RETURNED SAFTLY TO BED. NO PAIN. NO NEEDS AT THIS TIME. CALL LIGHT IN REACH, FALL PRECAUTIONS IN PLACE. BED ALRM ON.
[2019-05-04 03:45] VITALS: BP 94/53; PULSE 59; TEMP 97.9
--- NOTE | 2019-05-04 04:29 | NUR ---
PT WORE BPAP FROM [phone]. THEN REQUESTED FOR IT TO BE PLACED IN AT 0300. MINIMAL PAIN AT THIS TIME. CALL LIGHT IN REACH. REPORTS NO NEEDS
[2019-05-04 06:54] LABS: HEMATOCRIT 25.5 % (42.0-52.0); HEMOGLOBIN 8.3 g/dl (13.5-18.0); MEAN CELL VOLUME 90 fl (80.0-100.0); MEAN CORPUSCULAR HEMOGLOBIN 29 pg (27.0-31.0); MEAN CORPUSCULAR HGB CONC 33 g/dl (33.0-37.0); MEAN PLATELET VOLUME 11.4 fl (7.4-10.4); PLATELET COUNT 166 K/mm3 (130-400); RED BLOOD COUNT 2.84 M/mm3 (4.20-5.60); REDCELL DISTRIBUTION WIDTH-CV 21.2 % (11.5-14.5)
--- NOTE | 2019-05-04 07:15 | NUR ---
Report received from KENN Majano. PT in beriatric bed resting. Denies needs, will continue to monitor.
[2019-05-04 07:20] LABS: CALCIUM 7.3 mg/dL (8.4-10.2); CREATININE, serum 1.51 (0.66-1.25); POTASSIUM 3.5 mmol/L (3.4-5.0)
--- NOTE | 2019-05-04 07:30 | NUR ---
pt had an uneventful night. turning q2h-.5 inch stage 1 sore on sacreal region . vss. hypotension noted, but stable.pt in 2l via nc. wore bipap at night. PICC flushes well, blood return noted. caps changed. 3+ edema BLE. 2+ edema ETHAN. no needs at this time. call light in reach. report given to alley moran
[2019-05-04 07:38] LABS: ANISOCYTOSIS 2+; LYMPHOCYTE 3 % (20.0-51.0); NEUTROPHILS 96 % (42.0-75.2); PLATELET ESTIMATE NORMAL (NORMAL)
[2019-05-04 08:19] VITALS: BP 98/53; PULSE 64; TEMP 97.9
--- NOTE | 2019-05-04 09:00 | NUR ---
ALYCIA received a call from [place] requesting a peer to peer call at by May 06 at 1100. ALYCIA informed medical floor .
--- NOTE | 2019-05-04 09:03 | NUR ---
Shay, from [facility], reports that he has still not heard anything back from the patient's insurance. Shay requested updates. ALYCIA faxed Shay updates. ALYCIA to continue to follow.
--- NOTE | 2019-05-04 09:30 | NUR ---
Assessment charted. Pt needed a weight, tried to stand with assistance of PT and 3 nursing staff. Pt tried but could not tolerate. Rolls well with assistance, turning Q2h to help with stage 2 on sacrem. Edema was 3+ BLE and 2+ LUE. Foely draining clear yellow urine. Denies needs, generalized chronic aches from arthritis. PICC to JEMAL. Will continue to monitor.
--- NOTE | 2019-05-04 11:20 | NUR ---
SW attended clinical rounds. The hospitalist discussed how the patient is doing much better and no longer qualifies for [facility]. The patient verbalized understanding. ALYCIA then followed up with the patient to discuss SNF. The patient reports that he would be agreeable to the original plan of SNF at 1) [facility] 2) [facility]. ALYCIA contacted and faxed updates to both facilities. SW awaiting their screenings. ALYCIA contacted and updated the patient's DPOA-HC, Amparo. Amparo reports that she is supportive of this plan. SW to continue to follow.
[2019-05-04 12:16] VITALS: BP 109/52; PULSE 68; TEMP 97.7
[2019-05-04 17:10] VITALS: BP 115/51; PULSE 67; TEMP 98.5
--- NOTE | 2019-05-04 18:10 | NUR ---
Pt has done well today. Raymond d/c'd per orders, pt tolerated well, pericare provided. Turning q2h for comfort, pt continues to have a large amount of edema. Resting quietly in bed, denies needs, will give bedside shift report to nightshift nurse who will resume care.
[2019-05-04 20:34] VITALS: BP 122/86; PULSE 76; TEMP 98.2
--- NOTE | 2019-05-04 22:41 | NUR ---
Report received from KENN Stone. Patient resting in bed. Assessment complete. Bowels active. Patient repositioned. requested pain medication, so PRN [place] given. Upon reassessment, pain had decreased. Denies any further needs at this time. Plans to go to sleep. Call light within reach.
[2019-05-05 00:37] VITALS: BP 96/35; PULSE 76; TEMP 98.3
[2019-05-05 04:13] VITALS: BP 102/50; PULSE 110; TEMP 98.2
--- NOTE | 2019-05-05 05:50 | NUR ---
Patient had uneventful night. PRN norco given twice, PRN flexeril given, and chloroseptic spray given. Resting in bed. Call light within reach.
[2019-05-05 06:08] LABS: EOS % 0.5 % (0-4.0); GRAN # 5.6 (1.4-6.5); GRAN % 86.1 % (42.2-75.2); HEMATOCRIT 26.1 % (42.0-52.0); HEMOGLOBIN 8.6 g/dl (13.5-18.0); LYMPH # 0.6 (1.2-3.4); LYMPH % 8.4 % (20.0-51.0); MEAN CELL VOLUME 92 fl (80.0-100.0); MEAN CORPUSCULAR HEMOGLOBIN 30 pg (27.0-31.0); MEAN CORPUSCULAR HGB CONC 33 g/dl (33.0-37.0); MEAN PLATELET VOLUME 12.1 fl (7.4-10.4); MONO # 0.3 (0.1-0.6); MONO % 4.1 % (1.7-9.3); PLATELET COUNT 172 K/mm3 (130-400); RED BLOOD COUNT 2.83 M/mm3 (4.20-5.60); REDCELL DISTRIBUTION WIDTH-CV 21.4 % (11.5-14.5)
[2019-05-05 06:22] LABS: CALCIUM 7.2 mg/dL (8.4-10.2); CREATININE, serum 1.34 (0.66-1.25); MAGNESIUM 1.9 mg/dL (1.6-2.3); POTASSIUM 3.2 mmol/L (3.4-5.0)
--- NOTE | 2019-05-05 06:46 | NUR ---
Report given to KENN Tomlin.
[2019-05-05 07:56] VITALS: BP 91/59; PULSE 119; TEMP 97.9
--- NOTE | 2019-05-05 09:20 | NUR ---
Assessment complete. Patient A&Ox3, reporting discomfort related to laying in bed. Nursing staff repositioned patient and placed pillows on left side. VSS. 1L NC, no reported SOB IV CDI. Patient incontinent of urine, patient cleaned and repositioned for comfort. Breakfast ordered. No further needs expressed from patient. Call light within reach
[2019-05-05 11:27] VITALS: BP 101/62; PULSE 77; TEMP 97.9
--- NOTE | 2019-05-05 11:27 | NUR ---
Martín, at [facility], requested updates to send to the patient's insurance for authorization. SW faxed [facility] updates. ALYCIA to continue to follow.
--- NOTE | 2019-05-05 13:30 | NUR ---
PICC intact right upper arm. With sterile technique right upper arm PICC dressing change done with insertion site cleansed with ChloraPrep 1, chlorhexidine impregnated disc applied, skin prep, StatLock, and Tegaderm applied. No signs or symptoms of IV complications noted. No concerns voiced.
[2019-05-05 15:52] VITALS: BP 105/49; PULSE 75; TEMP 97.9
[2019-05-05] MEDS ORDERED: NYSTATIN OR100 MU/ML PO (17:32)
[2019-05-05] MEDS ORDERED: TOPROL XL 25MG25 MG PO (17:33)
[2019-05-05] MEDS ORDERED: BUMEX2 MG PO (17:34)
[2019-05-05] MEDS ORDERED: K-TAB20 PO (17:34)
[2019-05-05] MEDS ORDERED: CHLORASEPTIC 1180 M3 MM (17:34)
[2019-05-05] MEDS ORDERED: ANTACID ULTRA1000 M1 PO (17:35)
[2019-05-05] MEDS ORDERED: PREDNISONE20 MG PO (17:35)
[2019-05-05] MEDS ORDERED: NORCO 325 MG-7.1 TAB PO (17:36)
[2019-05-05] MEDS ORDERED: MELAT3MGTAB PO (17:36)
[2019-05-05] MEDS ORDERED: ROCALTROL0.5 MCG PO (17:36)
--- NOTE | 2019-05-05 18:02 | NUR ---
Patient sitting up in bed. Nurse encouraging patient to eat dinner, patient stating that he is not hungry. Denies pain and discomfort. VSS O2 1.5 L NC. No reported SOB. IV CDI. Patient stood with PT and nursing staff with sit to stand and was tired after getting up and slept. No further needs expressed from patient. Call light within reach. Will continue to monitor
[2019-05-05 19:14] VITALS: BP 102/64; PULSE 83; TEMP 98.1
--- NOTE | 2019-05-05 19:20 | NUR ---
Shift assessment complete. Pt resting in bed, awake, a&o, cooperative c cares. Pt c/o pain to BLE et back rated "10/10"; PRN pain medical director occupational health per pt req. Pt denies any other c/o. PICC noted to RUE, patent c good blood return. O2 per NC. Pt denies needs at this time. Call light in reach, will monitor.
[2019-05-06 03:35] VITALS: BP 94/65; PULSE 101; TEMP 98.8
[2019-05-06 06:24] LABS: CALCIUM 7.7 mg/dL (8.4-10.2); CREATININE, serum 1.83 (0.66-1.25); MAGNESIUM 2.1 mg/dL (1.6-2.3); POTASSIUM 3.8 mmol/L (3.4-5.0)
[2019-05-06 07:50] VITALS: BP 110/72; PULSE 86; TEMP 97.9
--- NOTE | 2019-05-06 08:00 | NUR ---
Patient is resting, watching TV. States he is having some generalized pain, 4-5/10. Respirations are even and nonlabored. Call light and personal items are within reach.
--- NOTE | 2019-05-06 09:43 | NUR ---
Patients BIPAP SETTINS ARE 15/8, RATE 16, FIO2 25%.
--- NOTE | 2019-05-06 11:11 | NUR ---
The patient has been using a bipap at night. ALYCIA notified Martín at [facility] and faxed [place] RT's note for the patient's bipap settings. Financial Counselor, Tg, also completed a new Medicaid application with the patient. ALYCIA faxed the application to [place] at [facility]. Martín, at [facility], reports that they received approval from the patient's insurance and are able to accept the patient for a skilled stay. ALYCIA informed the patient and the patient's life partner, Amparo, via phone. They are both in agreeance to transfer there.
[2019-05-06 12:28] VITALS: BP 102/61; PULSE 93; TEMP 98.2
--- NOTE | 2019-05-06 13:07 | NUR ---
The patient is to discharge today, 05/06, to [facility] for a skilled stay. Transportation was scheduled for 1500, via [facility]. ALYCIA informed the patient, patient's nurse, and the patient's life partner (Amparo) via phone. They were all in agreeance. ALYCIA presented and explained the IM form to the patient. The patient verbalized understanding, signed, and he was provided a copy. No additional needs at this time.
--- NOTE | 2019-05-06 16:50 | NUR ---
Patient assisted to wheelchair with sumeet lift and 3 assist. Transportation from [facility] here to take patient to nursing facility. Personal belongings bagged and sent with patient along with discharge paperwork. Discharged at 1640.
== END 2019-05-06 16:40 | DRG 871 ==
LOC: COL.ER 14:15 → ICU 15:05 → MEDICAL 15:05
PROVIDERS: Emergency Medicine; Family Medicine; Internal Medicine; Internal Medicine Pulmonary Disease; Nurse Practitioner Family; Physician Assistant; ADMIT Hospitalist
PROC: 5A2204Z Restoration of Cardiac Rhythm, Single (ICD-10-PCS; principal; 2019-04-27)
PROC: 02HV33Z Insertion of Infusion Device into Superior Vena Cava, Percutaneous Approach (ICD-10-PCS; 2019-04-27)
DX: A41.9 Sepsis, unspecified organism (principal); I50.23 Acute on chronic systolic (congestive) heart failure; E87.1 Hypo-osmolality and hyponatremia; N39.0 Urinary tract infection, site not specified; N17.9 Acute kidney failure, unspecified; I13.0 Hypertensive heart and chronic kidney disease with heart failure and stage 1 through stage 4 chronic kidney disease, or unspecified chronic kidney disease; Z68.41 Body mass index [BMI] 40.0-44.9, adult; B37.0 Candidal stomatitis; D68.8 Other specified coagulation defects; R65.20 Severe sepsis without septic shock; E83.51 Hypocalcemia; N40.0 Benign prostatic hyperplasia without lower urinary tract symptoms; N18.9 Chronic kidney disease, unspecified; E87.5 Hyperkalemia; E78.5 Hyperlipidemia, unspecified; I48.2 Chronic atrial fibrillation; I25.10 Atherosclerotic heart disease of native coronary artery without angina pectoris; Z95.0 Presence of cardiac pacemaker; Z87.891 Personal history of nicotine dependence; Z88.5 Allergy status to narcotic agent; Z88.0 Allergy status to penicillin; E66.01 Morbid (severe) obesity due to excess calories; G47.33 Obstructive sleep apnea (adult) (pediatric); R60.1 Generalized edema; R73.9 Hyperglycemia, unspecified
CPT/HCPCS: 99223-AI; 99232-AI; 99233-AI; 99239; A4216; C1751; J0610; J0692; J1720; J3480; J7060; J7512; P9016

== ENCOUNTER 2019-05-12 11:03 | Inpatient (IN) | payer MEDICARE, OTHER ==
[2019-05-12] VITALS (251 sets, daily range): BP systolic 87–109; BP diastolic 57–70; PULSE 90–103; TEMP 97.4–98.3; O2SAT 75–100
[~2019-05-12] VITALS: Ht 180.3 cm; Wt 134.8 kg
[~2019-05-12 11:03] MED LIST changes: +ANTACID ULTRA1000 M1 PO; +BUMEX2 MG PO; +CHLORASEPTIC 1180 M3 MM; +K-TAB20 PO; +MELAT3MGTAB PO; +NYSTATIN OR100 MU/ML PO; +PREDNISONE20 MG PO; +ROCALTROL0.5 MCG PO; +TOPROL XL 25MG25 MG PO
[2019-05-12 11:29] LABS: MEAN CELL VOLUME 96 fl (80.0-100.0); MEAN CORPUSCULAR HGB CONC 33 g/dl (33.0-37.0); MEAN PLATELET VOLUME 11.8 fl (7.4-10.4); PLATELET COUNT 224 K/mm3 (130-400); RED BLOOD COUNT 2.99 M/mm3 (4.20-5.60); REDCELL DISTRIBUTION WIDTH-CV 21.3 % (11.5-14.5)
[2019-05-12 11:32] LABS: HEMATOCRIT 28.7 % (42.0-52.0); HEMOGLOBIN 9.4 g/dl (13.5-18.0); MEAN CORPUSCULAR HEMOGLOBIN 31 pg (27.0-31.0)
[2019-05-12 11:34] LABS: INR 1.2 (0.8-3.0); PROTHROMBIN TIME 14.2 SECONDS (9.7-12.8)
[2019-05-12 11:36] LABS: PARTIAL THROMBOPLASTIN TIME 29.2 SECONDS (26.0-37.0)
[2019-05-12 11:43] LABS: ALBUMIN 2.3 gm/dL (3.5-5.0); BILIRUBIN,TOTAL 0.9 mg/dL (0.0-1.0); CALCIUM 7.2 mg/dL (8.4-10.2); PHOSPHOROUS 7.3 mg/dL (2.5-4.5); TOTAL PROTEIN 5.4 gm/dL (6.4-8.2)
[2019-05-12 11:49] LABS: CREATININE, serum 3.58 (0.66-1.25)
[2019-05-12 11:53] LABS: ANISOCYTOSIS 2+; HYPOCHROMIA 1+; LYMPHOCYTE 2 % (20.0-51.0); NEUTROPHILS 95 % (42.0-75.2); PLATELET ESTIMATE NORMAL (NORMAL)
[2019-05-12 11:56] LABS: TROPONIN-I 0.08 ng/mL (0.000-0.035)
[2019-05-12 13:20] LABS: PH 5 (5-8); SQUAMOUS EPITHELIAL 0-2 /hpf; URINE APPEARANCE Clear; URINE BACTERIA Rare /hpf; URINE BILIRUBIN Negative (NEGATIVE); URINE BLOOD Negative (NEGATIVE); URINE COLOR Yellow; URINE GLUCOSE Negative (NEGATIVE); URINE KETONE Negative (NEGATIVE); URINE LEUKOCYTE ESTERASE Negative (NEGATIVE); URINE NITRATE Negative (NEGATIVE); URINE PROTEIN(semi-quant) Negative (NEGATIVE); URINE RBC 0-2 /hpf; URINE UROBILINOGEN Negative (NEGATIVE)
[2019-05-12 13:37] LABS: COLLECTION METHOD CATHETER
--- NOTE | 2019-05-12 14:30 | NUR ---
Patient is in the emergency department. Patient has a PICC in his right upper arm. With sterile technique right upper arm PICC dressing change done with insertion site cleansed with ChloraPrep 1, chlorhexidine impregnated disc applied, skin prep, StatLock, and Tegaderm applied. Catheter caps changed with both ports flushed with 10 mL normal saline with good blood return noted. Lab drawn. No signs or symptoms of IV complications noted. No concerns voiced.
--- NOTE | 2019-05-12 14:54 | NUR ---
Patient arrives to ICU 1 and is transferred to bed and attached to monitors. Watery sharpe stool is present and cleaned at this time. Assessment and vitals as charted. JEMAL PICC noted with dressing CDI. Amiodarone infusing at ordered rate and concentration and pump are verified with ED RN. Care assumed at this time.
--- NOTE | 2019-05-12 15:10 | NUR ---
Dr. Rick notified of consult.
--- NOTE | 2019-05-12 15:30 | NUR ---
Patient with large watery sharpe stool noted and cleaned at this time. Sample sent for hemocult. See prior GI panel per ED. Rectal tube placed per [facility] by Dr. Nichols.
--- NOTE | 2019-05-12 17:30 | NUR ---
Dr. Amezquita notified of consult.
--- NOTE | 2019-05-12 18:49 | NUR ---
Dr. Amezquita rounds at this time.
--- NOTE | 2019-05-12 20:48 | NUR ---
PT BOOSTED AND SAT UP TO DO BEDSIDE SWALLOW. PT ABLE TO SWALLOW SMALL SIP OF WATER WITH NO COUGHING, BUT HR WENT UP TO 140'S. PT ALSO LETHARGIC AND FALLING BACK TO SLEEP WITHOUT CONTINUOUS STIMULI. PT LAID BACK DOWN AND HR RETURNED TO THE 90'S. WILL HOLD ON PO MEDS AT THIS TIME.
[2019-05-13] VITALS (1237 sets, daily range): BP systolic 90–111; BP diastolic 51–87; PULSE 91–112; TEMP 97.5–98.8; O2SAT 67–100
[2019-05-13] MEDS ORDERED: PREDNISONE20 MG PO (00:55)
[2019-05-13 05:00] LABS: MEAN CELL VOLUME 95 fl (80.0-100.0); MEAN CORPUSCULAR HGB CONC 32 g/dl (33.0-37.0); MEAN PLATELET VOLUME 11.8 fl (7.4-10.4); PLATELET COUNT 157 K/mm3 (130-400); RED BLOOD COUNT 2.71 M/mm3 (4.20-5.60); REDCELL DISTRIBUTION WIDTH-CV 21.4 % (11.5-14.5)
[2019-05-13 05:04] LABS: HEMATOCRIT 25.8 % (42.0-52.0); HEMOGLOBIN 8.3 g/dl (13.5-18.0); MEAN CORPUSCULAR HEMOGLOBIN 31 pg (27.0-31.0)
[2019-05-13 05:08] LABS: INR 1.1 (0.8-3.0); PROTHROMBIN TIME 12.8 SECONDS (9.7-12.8)
[2019-05-13 05:13] LABS: ALBUMIN 2.2 gm/dL (3.5-5.0); CALCIUM 7.5 mg/dL (8.4-10.2); CREATININE, serum 2.95 (0.66-1.25); POTASSIUM 3.2 mmol/L (3.4-5.0); TOTAL PROTEIN 5.1 gm/dL (6.4-8.2)
[2019-05-13 05:30] LABS: TROPONIN-I 0.064 ng/mL (0.000-0.035)
[2019-05-13 05:43] LABS: ANISOCYTOSIS 3+; BAND 4 % (0-10); LYMPHOCYTE 6 % (20.0-51.0); NEUTROPHILS 90 % (42.0-75.2); PLATELET ESTIMATE NORMAL (NORMAL); SCHISTOCYTES 1+
[2019-05-13 05:44] LABS: OVALOCYTES 1+
[2019-05-13 05:45] LABS: HYPOCHROMIA 1+
--- NOTE | 2019-05-13 06:00 | NUR ---
Weight not achieved this morning as bed does not scale at this time.
--- NOTE | 2019-05-13 07:20 | NUR ---
RECEIVED REPORT FROM KENN VILLARREAL.
--- NOTE | 2019-05-13 07:28 | NUR ---
Report received from Roxane HAWK and care resumed.
--- NOTE | 2019-05-13 07:34 | NUR ---
Dr Nuno in to see pt at this time.
--- NOTE | 2019-05-13 10:26 | NUR ---
Dr العلي in to see pt at this time.
--- NOTE | 2019-05-13 13:00 | NUR ---
Dobutamine dc'd per Dr العلي order.
--- NOTE | 2019-05-13 14:08 | NUR ---
NUTRITION MANAGER student attempted to meet with the patient for intial intake and to conduct a re-admission interview; patient was sleeping and was difficult to rouse. financial services professional will attempt at a later time.
--- NOTE | 2019-05-13 15:50 | NUR ---
The patient is in LTC at [facility]; PREPARATION ROOM WORKER student faxed referrals to [place]. learning services coordinator will continue to follow.
--- NOTE | 2019-05-13 19:20 | NUR ---
Report given to Pushpa HAWK and care transfered.
--- NOTE | 2019-05-13 19:20 | NUR ---
RECEIVED REPORT FROM KENN VILLARREAL.
[2019-05-14] VITALS (201 sets, daily range): BP systolic 97–128; BP diastolic 60–73; PULSE 50–112; TEMP 97.7–98.7; O2SAT 85–99
--- NOTE | 2019-05-14 03:10 | NUR ---
PATIENT'S HR HAS BEEN 130-140S FOR MAJORITY OF LAST HOUR. DR. QIU NOTIFIED. ORDERED 1 DOSE DIGOXIN 0.125MG PO NOW FOR HR GREATER THAN 120.
[2019-05-14 05:17] LABS: GRAN # 8.4 (1.4-6.5); GRAN % 93.8 % (42.2-75.2); LYMPH # 0.4 (1.2-3.4); LYMPH % 3.9 % (20.0-51.0); MEAN CELL VOLUME 96 fl (80.0-100.0); MEAN CORPUSCULAR HGB CONC 33 g/dl (33.0-37.0); MEAN PLATELET VOLUME 11.4 fl (7.4-10.4); MONO # 0.2 (0.1-0.6); MONO % 1.9 % (1.7-9.3); PLATELET COUNT 154 K/mm3 (130-400); RED BLOOD COUNT 2.53 M/mm3 (4.20-5.60); REDCELL DISTRIBUTION WIDTH-CV 21.4 % (11.5-14.5)
[2019-05-14 05:20] LABS: HEMATOCRIT 24.3 % (42.0-52.0); HEMOGLOBIN 7.9 g/dl (13.5-18.0); MEAN CORPUSCULAR HEMOGLOBIN 31 pg (27.0-31.0)
[2019-05-14 05:27] LABS: ALBUMIN 2.1 gm/dL (3.5-5.0); BILIRUBIN,TOTAL 0.5 mg/dL (0.0-1.0); CALCIUM 7.5 mg/dL (8.4-10.2); CREATININE, serum 2.4 (0.66-1.25); POTASSIUM 3.3 mmol/L (3.4-5.0); TOTAL PROTEIN 4.8 gm/dL (6.4-8.2)
--- NOTE | 2019-05-14 06:43 | NUR ---
PATIENT'S HR CONSISTENTLY ABOVE 120 FOR APPROX. THE LAST HOUR. LAST BP WAS 89/50. DR. QIU NOTIFED. NO NEW ORDERS RECEIVED. ADMINISTERED PO 0900 DOSE OF AMIO AT THIS TIME.
--- NOTE | 2019-05-14 07:00 | NUR ---
Report given to KENN Guzman.
--- NOTE | 2019-05-14 07:20 | NUR ---
Report received from Pushpa HAWK and care resumed.
--- NOTE | 2019-05-14 07:55 | NUR ---
Dr Nuno in to see pt at this time.
--- NOTE | 2019-05-14 09:54 | NUR ---
Report given to Maria Dolores HAWK and care transfered.
--- NOTE | 2019-05-14 10:00 | NUR ---
Dr. Castaneda rounds at this time. Orders as entered CPOE. Patient to transfer to medical floor today.
--- NOTE | 2019-05-14 11:01 | NUR ---
MICHELLE at bedside to exchange PICC line. Xray confirms placment and potassium lab due is drawn by MICHELLE and sent to lab. Care ongoing.
--- NOTE | 2019-05-14 11:29 | NUR ---
Report called to KENN Del Real.
--- NOTE | 2019-05-14 11:45 | NUR ---
FLORAL ASSOCIATE student met with the patient to discuss a discharge plan. The patient was at [facility] for a skilled stay prior to this hospitalization. The patient reports he would like to return home. The patient reports nursing was assisting with ADLs and was using a walker or wheelchair. The patient inquired about a chair lift. FLORAL ASSOCIATE student to discuss this with the team. The patient's PCP is Dr. Salinas and patient receives medications from [facility]. If a residential stay is recommended the patient's first choice is [facility] and second choice is [facility]. PT/OT were be ordered for the patient. SW will continue to follow to assist in a safe discharge.
--- NOTE | 2019-05-14 13:01 | NUR ---
Pt arrived from ICU into room 359 at this time. He is resting with his eyes closed but arouses to voice. Pt is oriented x3. His breathing is even and unlabored on RA. He denies SOB. No pain at this time. RLE elevated on pillow, BLE swelling 4+, LUE 3+. Raymond DD. Rectal tube in place. Stage II to coccyx. Ulcer to back of RLE. PICC in place to RUE. Water provided to patient. Lunch ordered. Call light within reach.
--- NOTE | 2019-05-14 15:14 | NUR ---
QUALITATIVE EXECUTIVE RESEARCHER student met with the patient and presented the patient choice form; patient's first choice is [facility] and second choice is [facility]. QUALITATIVE EXECUTIVE RESEARCHER student faxed referrals. services program manager will continue to follow to ensure safe discharge.
--- NOTE | 2019-05-14 16:36 | NUR ---
Jennie reports [facility] will follow the patient. airfield services officer will continue to follow.
--- NOTE | 2019-05-14 19:01 | NUR ---
Pt rested well after arriving to the floor, some output from rectal tube. Good UOP. Edematous extremities elevated on pillows. Pt has denied pain. Good appetite. No needs at this time. Call light within reach.
[2019-05-15] VITALS (8 sets, daily range): BP systolic 115–141; BP diastolic 61–95; PULSE 62–110; TEMP 97.6–98.1
--- NOTE | 2019-05-15 00:38 | NUR ---
PER TELEMETRY MONITORING PATIENT ABOVE HIGH RATE OF 120BPM CONSISTENTLY. RANGE 110-156. BP 125/66. PATIENT A/O X 4. DENIES C/O CHEST PAIN OR SOA. DR. PATTEN NOTIFIED. ORDER TO INCREASE HIGH LIMIT TO 130 BPM AND METOPROLOL 5MG IV TIMES ONE IF HEART RATE SUSTAINED GREATER THAN 130. TELEMETRY NOTIFIED OF NEW PARAMETERS AND ORDER. PATIENT NOTIFIED OF PLAN.
--- NOTE | 2019-05-15 03:53 | NUR ---
SERUM K+ 3.1. SEE EMAR FOR KCL 20MEQ IV GIVEN PER POTASSIUM PROTOCOL ORDERS FOR CENTRAL LINE. INFUSION STARTED @ 0345. TO RECHECK SERUM K+ IN 3 HRS PER PROTOCOL. AM LABS WITH BASIC PANEL ALREADY ORDERED. WILL HAVE LAB DRAW AM LABS AFTER 0700AM.
--- NOTE | 2019-05-15 03:56 | NUR ---
SHIFT NOTE: PATIENT HAD 2 LARGE EPISODES OF INCONTINENT LOOSE WATERY STOOL BROWNISH YELLOW IN COLOR WITH UNDIGESTED FOOD PARTICLES. RECTAL TUBE STILL INPLACE WITH MINIMAL OUTPUT THROUGH TUBE. HAS C/O OF HEADACHE THROUGH THE NIGHT WITH NO NAUSEA OR VISION CHANGES, SEE FLOW SHEET FOR BP OBTAINED WNL. CONTINUES WITH AFIB WITH ON EPISODE WITH RATE SUSTAINED ABOVE ORDER PARAMETERS OF 120BPM. SEE EVENT NOTE. ORDERS RECEIVED TO INCREASE HR PARAMETERS TO 130BPM. IV METOPROLOL 5MG IVP GIVEN, SEE EMAR FOR DOCUMENTED TIME. POTASSIUM REPLACED ACCORDING TO PROTOCOL ORDERS. DENIES C/O SOA OR CHEST PAIN THROUGH THE NIGHT. CONTINUS WITH 3-4+ EDEMA. TOMAS CONTINUES IN PLACE FOR ACCURATE I&O AND DIURETIC USAGE. 1500ML FLUID RESTRICTION MAINTAINED ORDERED WITH CONPLIANCE. 350ML PO TAKEN IN THIS SHIFT. CONTINUES TO C/O OF MOUTH PAIN D/T ORAL THRUSH, NYSTATIN SUSPENSION ADMINISTERED ORDERED. DISCUSSED USING VISCOUS LIDOCAINE FOR PAIN CONTROL WITH DR. PATTEN, STATES HE WILL ELVATUATE THIS FURTHER IN AM AND DECIDE ON COURSE OF FURTHER TREATMENT, PATIENT OKAY WITH THIS PLAN OF CARE. NEW ORDER RECEIVED FOR HYDROCODONE 5/325MG PO Q6H PRN FOR PAIN. FIRST DOSE ADMINISTERED @ 0230 FOR C/O HEADACHE. CONTINUES WITH SPECIAL CONTACT PRECAUTIONS FOR INFECTIOUS ECOLI IN STOOL. PATIENT HAS NO FURTHER CONCERNS THAN DOCUMENTED ABOVE. ATTITUDE CALM, QUIET, AND COOPERATIVE THROUGHOUT SHIFT.
--- NOTE | 2019-05-15 07:10 | NUR ---
Received report, patient is resting in bed with eyes closed. Respirations are even and nonlabored. Raymond is to dependent drain.
[2019-05-15 08:19] LABS: GRAN # 7.7 (1.4-6.5); GRAN % 90.2 % (42.2-75.2); LYMPH # 0.6 (1.2-3.4); LYMPH % 6.6 % (20.0-51.0); MEAN CELL VOLUME 96 fl (80.0-100.0); MEAN CORPUSCULAR HGB CONC 32 g/dl (33.0-37.0); MEAN PLATELET VOLUME 11.6 fl (7.4-10.4); MONO # 0.2 (0.1-0.6); MONO % 2.7 % (1.7-9.3); PLATELET COUNT 160 K/mm3 (130-400); RED BLOOD COUNT 2.66 M/mm3 (4.20-5.60); REDCELL DISTRIBUTION WIDTH-CV 21.3 % (11.5-14.5)
[2019-05-15 08:24] LABS: HEMATOCRIT 25.6 % (42.0-52.0); HEMOGLOBIN 8.1 g/dl (13.5-18.0); MEAN CORPUSCULAR HEMOGLOBIN 30 pg (27.0-31.0)
[2019-05-15 08:57] LABS: CALCIUM 7.5 mg/dL (8.4-10.2); CREATININE, serum 1.66 (0.66-1.25); POTASSIUM 3.4 mmol/L (3.4-5.0)
--- NOTE | 2019-05-15 12:22 | NUR ---
Met with pt, Amparo Keating his LP and her son to discuss goals of care. At this point is feeling much better and would like to go home. His family is not sure at this point that they can care for him at home until he gets stronger and can assist with his care. pt recognizes that he has serious health conditions that will require some trained monitoring. He is wanting a lift chair for home, his LP wants a hospital bed and her son is stating none of that is possible until he gets stronger. Pt has agreed to go back to the retirement for "two weeks". He does not believe at this point that he is dying and is not ready for hospice but we did discuss what hospice care could do. He will try to focus on the positive and stay for 2 more weeks at [facility] but then is planning on going home. Dr Barlow and Elizabeth were advised of the conversation.
--- NOTE | 2019-05-15 17:14 | NUR ---
SW attended clinical rounds. Hospitalist informed patient that he is unsafe to return home and he recommends patient return to [facility]. Patient would like to return home but understand doctor recommendations. Patient and LP, Amparo, was later visited by Lia to discuss goals of care. Per Lia, patient's family report they are unable to care for patient at home and would like patient to return to [facility]. Patient is agreeable to a skilled stay at [facility]. SW informed [facility] and they are going to contact patient's insurance for authorization.
--- NOTE | 2019-05-15 17:17 | NUR ---
ALL MEDICATIONS GIVEN VORB WITH MD. SEE MERGE FOR ALL MEDICATION ADMIN TIMES. SEE MERGE FOR ALL RASS ASSESSMENTS DURING AND POST PROCEDURE.
--- NOTE | 2019-05-15 18:55 | NUR ---
Patient returned from heart cath at 1740, is awake and alert, did not receive any sedation. Initial VS obtained and within normal limits. Cath site has remained clean, dry and intact. Surrounding tissue is soft. He denies pain to site, does have his normal generalized pain. Respirations are even and nonlabored. Had requested assistance earlier to order supper and this was done.
--- NOTE | 2019-05-15 20:00 | NUR ---
Report received. Assumed care for night filler. Assessment complete. VS stable. Denies pain/nausea/shortness of breath. Bilateral upper extremity edema-+2. Bilateral lower extremity edema/pedal edema +3-4. Raymond cath with yellow cloudy urine. Gauze dressing to right groin C/D/I. Plan of care discussed for this shift. Denies questions or concerns. Call light in reach. Bed in low position/wheels locked. Will monitor.
--- NOTE | 2019-05-15 22:00 | NUR ---
Spoke with Dr. Degroot about clark cath. Order received to leave clark cath in until AM.
[2019-05-16 03:30] VITALS: BP 116/71; PULSE 52; TEMP 97.7
--- NOTE | 2019-05-16 03:30 | NUR ---
Up in room watching TV. Denies pain. Gauze dressing to right groin C/D/I. Strict I/O with fluid restriction. Raymond cath with yellow cloudy urine. Denies needs. Call light in reach. Bed in low. WIll monitor.
[2019-05-16 07:48] VITALS: BP 139/83; PULSE 94; TEMP 97.4
[2019-05-16 08:05] LABS: CALCIUM 7.5 mg/dL (8.4-10.2); CREATININE, serum 1.29 (0.66-1.25); POTASSIUM 3.3 mmol/L (3.4-5.0)
--- NOTE | 2019-05-16 08:30 | NUR ---
Patient resting in bed at this time. Patient rouses with some effort, is alert and oriented, answers questions appropriately while awake. Raymond in place per order, urine is yellow and hazy. Patient has generalized +2 edema, +3 edema in RUE, arm is elevated on pillow. PICC to [facility] remains in place. Patient denies pain at this time, call light within reach.
[2019-05-16 12:36] VITALS: BP 120/58; PULSE 62; TEMP 97.6
[2019-05-16 15:26] VITALS: BP 121/68; PULSE 78; TEMP 98
--- NOTE | 2019-05-16 18:43 | NUR ---
Patient had a large loose stool. Raymond remains in place per order. Telemetry called to report patient has elevated heart rate ranging from 80-160+. Called oncall cable repairer per orders and recieved a TORB to change parameters to notify of sustained rate of 140+ and to continue to monitor. Patient denies further needs at this time, call light within reach.
[2019-05-16 19:39] VITALS: BP 122/72; PULSE 95; TEMP 98.1
[2019-05-17 00:10] VITALS: BP 119/52; PULSE 50; TEMP 97.9
[2019-05-17 04:49] VITALS: BP 118/64; PULSE 58; TEMP 97.6
[2019-05-17 07:02] LABS: CALCIUM 7.4 mg/dL (8.4-10.2); CREATININE, serum 1.07 (0.66-1.25); POTASSIUM 3.5 mmol/L (3.4-5.0)
[2019-05-17 07:43] VITALS: BP 113/53; PULSE 48; TEMP 97.6
--- NOTE | 2019-05-17 08:15 | NUR ---
Patient is awake and alert in bed. Did request norco for generalized pain. assisted in sitting up for breakfast. Call light and personal items are within reach.
[2019-05-17 12:15] VITALS: BP 91/62; PULSE 99; TEMP 97.2
[2019-05-17 16:38] VITALS: BP 119/56; PULSE 47; TEMP 97.7
[2019-05-17 18:31] VITALS: BP 107/60; PULSE 103
--- NOTE | 2019-05-17 19:51 | NUR ---
Patient is resting in bed watching TV. Had earlier received calls from telemetry warning that heart rate was exceeding 150s. Call placed to Dr. Sanchez, received order for 1x dose toprol 25mg then to increase daily dose to 12.5mg BID. Administered medication, patient denies pain, blood pressure is 107/60. Did notify telemetry of intervention and notify patient of heart rate recorded. Call light and personal items are within reach.
[2019-05-18 00:36] VITALS: BP 123/61; PULSE 90; TEMP 97.8
--- NOTE | 2019-05-18 04:10 | NUR ---
Patient in bed, awake. States, pain is 8/10 and "all over." Prn pain medication given. Patient also has not urinated all night, and denies need to use the urinal. Creat elevated per labs. Will notify oncoming shift, and continue to monitor. Unable to scan bladder d/t lack of equipment to do so.
[2019-05-18 04:45] VITALS: BP 115/74; PULSE 87; TEMP 97.5
--- NOTE | 2019-05-18 05:52 | NUR ---
Patient in bed, awake. Denies pain. Incontinent of stool, large amount. Melia-care provided, bed pad changed. Buttocks/coccyx reddened, but blanches. Barrier cream applied. States he is slightly nauseous, but does not want me to call for an antiemetic order. Denies further needs at this time. Will continue to monitor.
[2019-05-18 06:31] LABS: CALCIUM 7.2 mg/dL (8.4-10.2); CREATININE, serum 0.92 (0.66-1.25); POTASSIUM 3.8 mmol/L (3.4-5.0)
[2019-05-18 08:46] VITALS: BP 110/54; PULSE 69; TEMP 97.9
[2019-05-18 11:46] VITALS: BP 111/60; PULSE 60; TEMP 97.6
--- NOTE | 2019-05-18 13:57 | NUR ---
Pt had order to insert clark. 16fr clark inserted via sterile technique with assist of aide for positioning. Pt had 900cc clear straw yellow urine out. Melia cares provided. Pt has call light in reach and pain managed with PRN [place]. Pt eating and tolerating well. Pt denies any further nausea at this time.
--- NOTE | 2019-05-18 16:50 | NUR ---
Pt alert and oriented. Pt denies SOB. Pain controlled with PRN medication. Pt clark patent and clark cares provided. Pt PICC patent and no redness or infiltration noted. Pt has good appetite. Pt remains edamatous all over and BLE 3+. Pt bedbound. Pt HR varies today and seeen by cardiology and hospitalist. Pt has call ligth in reach and remains on contact precautions.
[2019-05-18 17:00] VITALS: BP 107/75; PULSE 104; TEMP 97.3
[2019-05-18 18:59] VITALS: BP 103/56; PULSE 71; TEMP 97.6
--- NOTE | 2019-05-18 20:30 | NUR ---
Pt resting in bed watching TV. Assessment complete. A&O x3. C/O generalized pain. PICC line to R upper arm. Tele with A-fib and irreg HR. Lung sounds CTA. Raymond cath draining clear, yellow urine. Feels a little nauseated, Zofran 4mg IV push given. Generalized edema with 2-3 plus pitting edema to RUE. Bilat LE with 2-3+ pitting edema. Repositioned. Hydrocodone 5/325mg 1 tab given for him generalized pain.
[2019-05-19 00:42] VITALS: BP 111/59; PULSE 62; TEMP 97.9
[2019-05-19 03:45] VITALS: BP 105/67; PULSE 104; TEMP 97.9
[2019-05-19 06:52] LABS: BASO % 0.1 % (0.0-2.0); EOS % 0.3 % (0-4.0); GRAN # 5.9 (1.4-6.5); LYMPH # 0.8 (1.2-3.4); LYMPH % 11.7 % (20.0-51.0); MEAN CELL VOLUME 101 fl (80.0-100.0); MEAN CORPUSCULAR HGB CONC 30 g/dl (33.0-37.0); MEAN PLATELET VOLUME 12.1 fl (7.4-10.4); MONO # 0.2 (0.1-0.6); MONO % 3.3 % (1.7-9.3); PLATELET COUNT 174 K/mm3 (130-400); RED BLOOD COUNT 3.03 M/mm3 (4.20-5.60)
[2019-05-19 06:55] LABS: HEMATOCRIT 30.6 % (42.0-52.0); HEMOGLOBIN 9.3 g/dl (13.5-18.0); MEAN CORPUSCULAR HEMOGLOBIN 31 pg (27.0-31.0)
[2019-05-19 07:10] LABS: CALCIUM 7.3 mg/dL (8.4-10.2); CREATININE, serum 0.96 (0.66-1.25); POTASSIUM 4.1 mmol/L (3.4-5.0)
--- NOTE | 2019-05-19 08:00 | NUR ---
Pt req and given Jasper and Zofran at HS last night. States his pain is just all over. Feels nauseated off and on. Repeated Jasper at 0130 with his order for Melantonin 6mg. Raymond cont to drain clear yellow urine. Generalized edema, more to LUE than the right and 2-3 + to bilat LE.
[2019-05-19 09:13] VITALS: BP 97/56; PULSE 53; TEMP 98.7
--- NOTE | 2019-05-19 09:24 | NUR ---
Spoke again with Patrick this morning about goals of care and current plans. He is still feeling that his goal is to work to get better and stronger. He does acknowledge that he needs to get stronger before going home to have the best chance for success. His biggest fear remains "being stuck in a [facility] forever". We did review goals of care again, his current desire to keep working to improve and that his family is his ongoing help in his destination determination. He reports feeling depressed but also is very clear that he wishes to pursue treatment. He is aware that he may go to [facility] today. Also is expressing interest in water therapy to help him gain strength if this is an option.
--- NOTE | 2019-05-19 09:49 | NUR ---
Assessment completed, alert/oriented, vital signs stable, reports some mild-moderate pain this morning but stated it is better than it was last night, we are doing frequent postion changes to help with comfort, heart irregular/ still in a.fib but rate is improved currently HR is 96, Cardiology following for management of this, he is sitting up in bed waiting for his breakfast, denies other needs, anticipating discharge back to nursing facility
[2019-05-19 13:29] VITALS: BP 107/65; PULSE 67; TEMP 97.6
--- NOTE | 2019-05-19 13:44 | NUR ---
ALYCIA faxed updates to [facility]. Martín from [facility] reports patient was approved by insurance and they can accept patient today. ALYCIA informed hospitalist and they will complete discharge orders. ALYCIA informed patient about insurance approval. ALYCIA presented IM to patient. He verbalized understanding and signed. Patient was provided a copy. ALYCIA also informed patient's life partner, Amparo, and informed her that patient will discharge later today.
[2019-05-19] MEDS ORDERED: CORDARONE200 MG/TAB PO (14:15)
[2019-05-19] MEDS ORDERED: TOPROL XL 25MG25 MG PO (14:16)
[2019-05-19] MEDS ORDERED: BUMEX 1MG TA1 MG/TA1 PO (14:28)
[2019-05-19] MEDS ORDERED: LANOXIN 0.120.125 MG PO (14:30)
[2019-05-19] MEDS ORDERED: NORCO 325 MG-51 TAB PO (14:36)
[2019-05-19] MEDS ORDERED: PREDNISONE10 MG PO (14:36)
[2019-05-19] MEDS ORDERED: KLONOPIN 0.5MG0.5 MG PO (14:36)
--- NOTE | 2019-05-19 15:46 | NUR ---
ALYCIA faxed discharge orders to [facility] for skilled rehab. Patient will discharge at 4pm. ALYCIA contacted patient's life partner, Amparo, and informed her of discharge time.
--- NOTE | 2019-05-19 16:38 | NUR ---
patient is transferring back to [facility], PICC and Raymond left in place per the hospitalist orders, we used [id number] lift to get patient tranferred to wheelchair, I have attempted to call report to the nurse/ I got no answer and so left a message with my number for them to call me back to get an update/report
== END 2019-05-19 16:39 | DRG 286 ==
LOC: COL.ER 11:03 → ICU 13:22 → MEDICAL 13:22 → ICU 05-13 06:40 → MEDICAL 05-14 11:15
PROVIDERS: Emergency Medicine; Hospitalist; Physician Assistant; ADMIT Family Medicine
PROC: 5A2204Z Restoration of Cardiac Rhythm, Single (ICD-10-PCS; 2019-05-12)
PROC: 02HV33Z Insertion of Infusion Device into Superior Vena Cava, Percutaneous Approach (ICD-10-PCS; 2019-05-14)
PROC: 4A023N6 Measurement of Cardiac Sampling and Pressure, Right Heart, Percutaneous Approach (ICD-10-PCS; principal; 2019-05-15)
PROC: B2141ZZ Fluoroscopy of Right Heart using Low Osmolar Contrast (ICD-10-PCS; 2019-05-15)
DX: I48.2 Chronic atrial fibrillation (principal); I50.23 Acute on chronic systolic (congestive) heart failure; N17.9 Acute kidney failure, unspecified; I13.0 Hypertensive heart and chronic kidney disease with heart failure and stage 1 through stage 4 chronic kidney disease, or unspecified chronic kidney disease; Z68.41 Body mass index [BMI] 40.0-44.9, adult; E87.1 Hypo-osmolality and hyponatremia; E87.2 Acidosis; I25.10 Atherosclerotic heart disease of native coronary artery without angina pectoris; R33.9 Retention of urine, unspecified; I08.0 Rheumatic disorders of both mitral and aortic valves; G47.33 Obstructive sleep apnea (adult) (pediatric); E78.5 Hyperlipidemia, unspecified; E11.9 Type 2 diabetes mellitus without complications; K21.9 Gastro-esophageal reflux disease without esophagitis; E87.6 Hypokalemia; N18.9 Chronic kidney disease, unspecified; E66.01 Morbid (severe) obesity due to excess calories; I95.9 Hypotension, unspecified; N40.0 Benign prostatic hyperplasia without lower urinary tract symptoms; E87.8 Other disorders of electrolyte and fluid balance, not elsewhere classified; Z79.82 Long term (current) use of aspirin; Z79.52 Long term (current) use of systemic steroids; Z95.0 Presence of cardiac pacemaker; Z85.038 Personal history of other malignant neoplasm of large intestine; Z85.6 Personal history of leukemia; Z92.21 Personal history of antineoplastic chemotherapy; Z87.891 Personal history of nicotine dependence; Z88.0 Allergy status to penicillin; Z88.8 Allergy status to other drugs, medicaments and biological substances
CPT/HCPCS: 99223-AI; 99231-AI; 99232-AI; 99233-AI; A4314; C1751; C1892; C1894; J0282; J0744; J1250; J1644; J1650; J1720; J2370; J2405; J2704; J2920; J3480; J7050; J7060; J7512

== ENCOUNTER 2019-05-26 11:09 | Inpatient (IN) | payer MEDICARE, MEDICAID ==
[~2019-05-26 11:09] MED LIST changes: +BUMEX 1MG TA1 MG/TA1 PO; +KLONOPIN 0.5MG0.5 MG PO; +PREDNISONE10 MG PO
--- NOTE | 2019-05-26 11:30 | NUR ---
patient in the emergency department. Patient has a PICC in his right upper arm. No chlorhexidine impregnated disc at insertion site. With sterile technique right upper arm PICC dressing change done with insertion site cleansed with ChloraPrep 1, chlorhexidine impregnated disc applied, skin prep, StatLock, and Tegaderm applied. No signs or symptoms noted of IV complications. changed. Lab drawn. Both ports flushed with 10 mL normal saline good blood return noted. Arm wrapped with Miki to protect catheter.
[2019-05-26 11:53] LABS: COLLECTION METHOD CATHETER
[2019-05-26 12:13] LABS: BILIRUBIN,TOTAL 0.9 mg/dL (0.0-1.0); C-REACTIVE PROTEIN 2.4 mg/dL (0.0-0.9); CALCIUM 6.8 mg/dL (8.4-10.2); CREATININE, serum 0.89 (0.66-1.25); TOTAL PROTEIN 4.5 gm/dL (6.4-8.2)
[2019-05-26 12:17] LABS: INR 1.2 (0.8-3.0); PROTHROMBIN TIME 13.8 SECONDS (9.7-12.8)
[2019-05-26 12:20] LABS: BUDDING YEAST Present /hpf; MUCOUS Present /lpf; PH 5 (5-8); SQUAMOUS EPITHELIAL 0-2 /hpf; URINE APPEARANCE Hazy; URINE BACTERIA Rare /hpf; URINE BILIRUBIN Negative (NEGATIVE); URINE BLOOD 2+ (NEGATIVE); URINE COLOR Yellow; URINE GLUCOSE Negative (NEGATIVE); URINE KETONE Negative (NEGATIVE); URINE LEUKOCYTE ESTERASE 3+ (NEGATIVE); URINE NITRATE Negative (NEGATIVE); URINE PROTEIN(semi-quant) Negative (NEGATIVE); URINE UROBILINOGEN Negative (NEGATIVE)
[2019-05-26 12:21] LABS: TROPONIN-I 0.032 ng/mL (0.000-0.035)
--- NOTE | 2019-05-26 14:30 | NUR ---
PATIENT ARRIVED TO ROOM 359 VIA CART FROM ED. PATIENT SETTELED INTO ROOM.
--- NOTE | 2019-05-26 14:45 | NUR ---
WILLIAM HWANG NOTIFIED OF PATIENT ARRIVAL TO ROOM 359. NO ORDERS GIVEN AT THIS TIME.
[2019-05-26 15:29] LABS: HEMOGLOBIN 9.8 g/dl (13.5-18.0); MEAN CORPUSCULAR HEMOGLOBIN 31 pg (27.0-31.0); RED BLOOD COUNT 3.18 M/mm3 (4.20-5.60)
[2019-05-26 15:30] LABS: HEMATOCRIT 32.4 % (42.0-52.0); MEAN CELL VOLUME 102 fl (80.0-100.0); MEAN CORPUSCULAR HGB CONC 30 g/dl (33.0-37.0); MEAN PLATELET VOLUME 10.8 fl (7.4-10.4); PLATELET COUNT 192 K/mm3 (130-400); REDCELL DISTRIBUTION WIDTH-CV 21.6 % (11.5-14.5)
[2019-05-26 15:32] LABS: ANISOCYTOSIS 3+; BAND 1 % (0-10); LYMPHOCYTE 7 % (20.0-51.0); MICROCYTOSIS 1+; NEUTROPHILS 90 % (42.0-75.2); OVALOCYTES 1+; PLATELET ESTIMATE NORMAL (NORMAL)
--- NOTE | 2019-05-26 15:51 | NUR ---
SEE ADMISSION ASSESSMENT B FOR SHIFT ASSESSMENT. PATIENT A&OX4. VSS. CALL LIGHT WITHIN REACH. NO NEEDS AT THIS TIME.
[2019-05-26 16:41] VITALS: BP 121/81; PULSE 86; TEMP 98.9
--- NOTE | 2019-05-26 16:42 | NUR ---
REPORT GIVEN TO KENN FLORES.
[2019-05-26 19:30] VITALS: BP 120/65; PULSE 71; TEMP 99.1
--- NOTE | 2019-05-26 19:39 | NUR ---
THIS NURSE CHANGED OUT TOMAS AT THIS TIME. PT ONLY HAD 100CC OF URNIE IN BAG WHEN REMOVED. PT REPORTED C/O PAIN WITH REMOVING OLD TOMAS AND OLD TUBING LOOKED DISCOLORED TO TIP OF TOMAS. THIS NURSE GAVE PT A LITTLE BIT OF TIME BEFORE REPLACING NEW TOMAS. 16F TOMAS INSERTED USING STERILE TECHNIQUE. PT TOLERATED WELL BUT DID HAVE C/O PAIN. BALLOON FILED WITH 10CC OF WATER, TUBING WITHDREW FROM BLADDER UNTIL BALLOOON WAS SEATED AT BASE OF BLADDER. ALTHOUGH NO NOTED URINE RETURN. NOTIFIED LAB CLERK NURSE AND LAB CLERK MEDICAL TECHNOLOGIST HEMATOLOGY TO MONITOR FOR ANY NOTED URINE DURING THIER SHIFT.
--- NOTE | 2019-05-26 20:36 | NUR ---
Report received from KENN Bar. Patient resting in bed. Assessment complete. States pain is a 7/10, does not request anything for pain. Pulses strong. Edema +2 noted in bilateral legs. Non pitting in feet. Lungs CTA. PICC flushed. Patient had a bowel movement. Chux changed. Denies any further needs at this time. Call light within reach.
[2019-05-26 22:35] VITALS: BP 110/55; PULSE 77
--- NOTE | 2019-05-26 22:47 | NUR ---
Tele called and informed this nurse that this patient is having runs of v-tach, each 4-6 beats. These were happening as often as every 10 seconds. Went to patients room and assessed him. He reported no chest pain and only a couple palpitations. His vitals were taken and all were within normal limits. Stat EKG ordered and showed a fib with RVR. Dr. Gamez called and informed about this development. He instructed to give Metoprolol 5 mg IV push now. Also to keep an eye on patients HR and notify him if it went above 115 again. This nurse administered the Metoprolol per order and patient's rhythm seemed to adjust back to normal. Will continue to monitor.
[2019-05-26 23:40] VITALS: BP 117/46; PULSE 99; TEMP 98.3
[2019-05-27] VITALS (9 sets, daily range): BP systolic 98–180; BP diastolic 42–74; PULSE 62–120; TEMP 97.6–98.4
--- NOTE | 2019-05-27 05:51 | NUR ---
Patient had multiple episodes of Afib and irregular rhythms per tele monitor. Dr Gamez notified and PRN metoprolol given. Upon reassessment, rhythm back to normal. Patient denied having any pain throughout shift. Incontinent of stools and bed changed x2. Patient resting in bed. Call light within reach.
[2019-05-27 06:30] LABS: CALCIUM 7.1 mg/dL (8.4-10.2); CREATININE, serum 0.83 (0.66-1.25); MAGNESIUM 1.3 mg/dL (1.6-2.3); POTASSIUM 3.1 mmol/L (3.4-5.0)
--- NOTE | 2019-05-27 07:00 | NUR ---
MAK Foster called to notify of reported frequent Ventricular Tachycardia runs over night and that Potassium and Magnesium have been low and remain low after morning labs from 0540 this AM - night cleaner RN unaware of hypokalemia & hypomagnesemia. Orders recieved Pt AAOx4 in bed with call light on chest. Zoll De-fib patches in place from overnight. Menu and phone provided. Water intake/restrictions in place and education provided to pt
--- NOTE | 2019-05-27 07:02 | NUR ---
Report given to KENN Coronado
[2019-05-27 08:19] LABS: HEMOGLOBIN 9.6 g/dl (13.5-18.0); MEAN CORPUSCULAR HEMOGLOBIN 31 pg (27.0-31.0); RED BLOOD COUNT 3.07 M/mm3 (4.20-5.60)
[2019-05-27 08:20] LABS: HEMATOCRIT 31.2 % (42.0-52.0); MEAN CELL VOLUME 102 fl (80.0-100.0); MEAN CORPUSCULAR HGB CONC 31 g/dl (33.0-37.0); MEAN PLATELET VOLUME 10.8 fl (7.4-10.4); PLATELET COUNT 192 K/mm3 (130-400); REDCELL DISTRIBUTION WIDTH-CV 21.4 % (11.5-14.5)
[2019-05-27 08:21] LABS: ANISOCYTOSIS 3+; LYMPHOCYTE 9 % (20.0-51.0); MICROCYTOSIS 1+; NEUTROPHILS 88 % (42.0-75.2); PLATELET ESTIMATE NORMAL (NORMAL); POLYCHROMASIA 1+
[2019-05-27 08:22] LABS: HYPERSEGMENTED POLYS PRESENT; OVALOCYTES 1+
--- NOTE | 2019-05-27 09:50 | NUR ---
Initial visit; Patient thanked Blood Bank Worker for looking in on him and offering encouragement and prayer.
[2019-05-27 13:24] LABS: MAGNESIUM 1.9 mg/dL (1.6-2.3); POTASSIUM 3.6 mmol/L (3.4-5.0)
--- NOTE | 2019-05-27 15:53 | NUR ---
ALYCIA met with the patient to discuss discharge plan and re-admit. The patient recently discharged from the hospital, 05/19, and returned back to [facility] for a skilled stay. The patient reports that he feels that things are going well at [facility] and that he is progressing some with therapy. The patient had a UTI and was admitted into the hospital. The patient reports that he would like to return back to [facility] upon discharge. ALYCIA presented and explained the Patient Choice Form to the patient. The patient verbalized understanding, signed, and he was provided a copy. The patient's PCP is Dr. Tomasa Salinas and his DPOA-HC is in EMR. His DPOA-HC is his life partner (Amparo Zuri ph#[phone]) and the alternate is his daughter (Veronica Lay). ALYCIA requested a palliative care consult to discuss goals of care. A palliative care consult was ordered. ALYCIA contacted and faxed updates to Martín at [facility]. ALYCIA to continue to follow.
--- NOTE | 2019-05-27 17:23 | NUR ---
Eating dinner now. Clark to dependent drainage, secured with STAT lock. Clark care done with soap and water, foreskin pulled back for good cleaning. Patient teaching done regarding the need for BID catheter care to prevent UTI's when a clark catheter is in place. Patient verbalized understanding. Pain treated with [place] 5/325mg 1 tab at 16:22 for pain in general, arthritic rated 8/10, reassessed at 17:20 and patient reported pain 6/10, smiling and eating dinner. No changes at this time.
--- NOTE | 2019-05-27 17:54 | NUR ---
Afib, rate 110 up to 140, Dr Nichols called and message left to call.
--- NOTE | 2019-05-27 18:21 | NUR ---
Patient incontinent of a stool again. Continues aflutter on tele, rate 110's to 120[address] Amaya
--- NOTE | 2019-05-27 22:07 | NUR ---
Report received from KENN Ca. Patient resting in bed. Assessment complete. Alert and oriented x4. Reports pain as a 6/10, which is his usual. Pulses mildly strong. Lungs CTA. Cooperative with cares. Denies any chest pain or palpitations. Vitals within normal limits. Denies any further needs at this time. Call light within reach.
[2019-05-28 03:24] VITALS: BP 105/62; PULSE 97; TEMP 98.5
--- NOTE | 2019-05-28 05:26 | NUR ---
Patient had uneventful night. Resting in bed. Denies having any pain throughout night. Patient refusing to turn or be repositioned. Call light within reach.
[2019-05-28 05:33] LABS: BASO % 0.2 % (0.0-2.0); EOS # 0.1 (0.0-0.7); EOS % 2.1 % (0-4.0); GRAN # 4.3 (1.4-6.5); GRAN % 75.9 % (42.2-75.2); LYMPH # 0.8 (1.2-3.4); LYMPH % 14.8 % (20.0-51.0); MEAN CELL VOLUME 101 fl (80.0-100.0); MEAN CORPUSCULAR HGB CONC 32 g/dl (33.0-37.0); MEAN PLATELET VOLUME 10.3 fl (7.4-10.4); MONO # 0.4 (0.1-0.6); MONO % 6.5 % (1.7-9.3); PLATELET COUNT 156 K/mm3 (130-400); RED BLOOD COUNT 2.92 M/mm3 (4.20-5.60); REDCELL DISTRIBUTION WIDTH-CV 21.2 % (11.5-14.5)
[2019-05-28 05:34] LABS: HEMATOCRIT 29.5 % (42.0-52.0); HEMOGLOBIN 9.5 g/dl (13.5-18.0); MEAN CORPUSCULAR HEMOGLOBIN 33 pg (27.0-31.0)
[2019-05-28 05:41] LABS: CALCIUM 7.2 mg/dL (8.4-10.2); CREATININE, serum 0.84 (0.66-1.25); MAGNESIUM 1.8 mg/dL (1.6-2.3)
--- NOTE | 2019-05-28 06:53 | NUR ---
Report given to KENN Leong
--- NOTE | 2019-05-28 07:07 | NUR ---
Met with primary nurse, KENN Leong. This student nurse will be assisting with care.
[2019-05-28 07:30] VITALS: BP 103/46; PULSE 86; TEMP 98.7
--- NOTE | 2019-05-28 09:28 | NUR ---
ALYCIA attended clinical rounds. The hospitalist discussed the patient's prognosis and the liklihood of him not being able to return home after his rehab stay. The patient verbalized understanding and expressed his frustrations. The hospitalist also discussed hospice care and long-term care. The reports that he is not ready for hospice care yet. The patient would still like to return back to [facility] upon discharge and see what happens. The patient is to tentatively discharge tomorrow, 05/29. ALYCIA contacted and updated Martín at [facility]. ALYCIA to fax updates to [facility] and will continue to follow.
--- NOTE | 2019-05-28 09:49 | NUR ---
Met withi patient after team rounding today. Reviewed what Dr Nichols had discussed and pt is in agreement that he is not strong enough to go home now. He is still wanting to get stronger so that he can go home but realizes that he has many interwoven health issues that keep setting him back. We did discuss hospice care but he is not ready to and wants to keep trying to get better--even if it takes longer than he would like. Support provided.
[2019-05-28 11:29] VITALS: BP 98/59; PULSE 72; TEMP 98
--- NOTE | 2019-05-28 13:52 | NUR ---
Patient with uneventful day with exception of PRN [place] 5/325 administered for pain as documented. Reported off to primary nurse, KENN Leong.
--- NOTE | 2019-05-28 13:56 | NUR ---
Primary nurse was assisted with [phone] patient care by [employer] student Sarah Echevarria and [employer] instructor Ronit Villanueva RN-.
[2019-05-28 17:22] VITALS: BP 100/59; PULSE 61; TEMP 98.3
[2019-05-28 19:23] VITALS: BP 99/51; PULSE 49; TEMP 98.1
--- NOTE | 2019-05-28 20:00 | NUR ---
Patient assessed at this time. Alert and oriented x 4, and able to make needs known. Complained of level 8 pain all over. Given PRN [place] as requested for pain. Double lumen PICC to RUE. Each lumen flushed. Site is without redness, warmth, swelling, and pain. LS CTA in upper lobes, diminished in lower lobes. Denies SOB and dyspnea. Telemetry monitoring in place. Irregular heart rate. BSAx4. Abdomen soft and non-tender. 3+ edema BLE, 2+ BUE. Idwelling clark catheter draing clear yellow urine via dependent drainage. Has been incontinent of loose stools. Perineal and catheter care provided. Scab to nose and bruising to right forearm. Voices no questions, needs,or concerns at this time. Resting in bed watching TV. Call light is within reach.
[2019-05-28 23:56] VITALS: BP 104/66; PULSE 50; TEMP 97.9
[2019-05-29 03:32] VITALS: BP 102/58; PULSE 82; TEMP 97.6
--- NOTE | 2019-05-29 06:15 | NUR ---
Patient has been resting in bed. No further complaints of pain or discomfort since receing PRN [place] last night. Call light is within reach.
[2019-05-29 06:51] LABS: BASO % 0.2 % (0.0-2.0); EOS # 0.1 (0.0-0.7); EOS % 1.4 % (0-4.0); GRAN # 4.3 (1.4-6.5); GRAN % 77.4 % (42.2-75.2); LYMPH # 0.7 (1.2-3.4); LYMPH % 13.3 % (20.0-51.0); MEAN CELL VOLUME 103 fl (80.0-100.0); MEAN CORPUSCULAR HGB CONC 31 g/dl (33.0-37.0); MEAN PLATELET VOLUME 11.3 fl (7.4-10.4); MONO # 0.4 (0.1-0.6); PLATELET COUNT 167 K/mm3 (130-400); RED BLOOD COUNT 3.05 M/mm3 (4.20-5.60); REDCELL DISTRIBUTION WIDTH-CV 21.3 % (11.5-14.5)
[2019-05-29 06:52] LABS: HEMATOCRIT 31.4 % (42.0-52.0); HEMOGLOBIN 9.8 g/dl (13.5-18.0); MEAN CORPUSCULAR HEMOGLOBIN 32 pg (27.0-31.0)
[2019-05-29 07:11] LABS: CALCIUM 7.3 mg/dL (8.4-10.2); CREATININE, serum 0.84 (0.66-1.25); POTASSIUM 3.5 mmol/L (3.4-5.0)
[2019-05-29 07:17] VITALS: BP 99/58; PULSE 76; TEMP 97.2
--- NOTE | 2019-05-29 09:39 | NUR ---
Follow-up; Home Health Occupational Therapist offered God's blessings this morning. Patient thanked .
--- NOTE | 2019-05-29 10:45 | NUR ---
Martín, at [facility], requested more frequent updates on the patient to send to the patient's insurance for authorization. ALYCIA faxed those updates and will continue to follow.
[2019-05-29 11:26] VITALS: BP 99/41; PULSE 80; TEMP 97.6
--- NOTE | 2019-05-29 13:39 | NUR ---
Primary nurse, KENN Leong, assisted by this student with patient care from [phone]. PRN administered for pain as documented.
[2019-05-29] MEDS ORDERED: MONUROL 3 GM3 G/PKT PO (13:50)
[2019-05-29] MEDS ORDERED: DIFLUCAN200 MG PO (13:51)
[2019-05-29] MEDS ORDERED: PRINIVIL5 MG PO (13:52)
[2019-05-29] MEDS ORDERED: NORCO 325 MG-51 TAB PO (13:56)
[2019-05-29] MEDS ORDERED: KLONOPIN 0.5MG0.5 MG PO (13:56)
[2019-05-29] MEDS ORDERED: PREDNISONE10 MG PO (13:56)
--- NOTE | 2019-05-29 14:01 | NUR ---
Primary nurse was assisted with [phone] patient care by [employer] student Sarah Echevarria and [employer] instructor Ronit Villanueva RN-.
--- NOTE | 2019-05-29 15:30 | NUR ---
Martín, at [facility], reports that he received approval from the patient's insurance and that they are able to accept the patient back today. The patient is to discharge today, 05/29, back to [facility] for a skilled stay. Transportation was scheduled for around 1600, via [facility]. ALYCIA informed the patient, patient's nurse, and the patient's life partner (Amparo) via phone. They were both in agreeance to time. ALYCIA also presented and explained the IM form to the patient. The patient verbalized understanding, signed, and he was provided a copy. No additional needs at this time.
[2019-05-29] MEDS ORDERED: TYLENOL 325MG325 MG PO (15:39)
--- NOTE | 2019-05-29 17:40 | NUR ---
patient transferring back to [facility], I have attempted to call report and will try back a second time, patient discharged with PICC and Raymond in place
== END 2019-05-29 17:43 | DRG 699 ==
LOC: COL.ER 11:09 → MEDICAL 12:48
PROVIDERS: Emergency Medicine; Nurse Practitioner Family; Physician Assistant; ADMIT Family Medicine
DX: T83.518A Infection and inflammatory reaction due to other urinary catheter, initial encounter (principal); N39.0 Urinary tract infection, site not specified; I50.22 Chronic systolic (congestive) heart failure; E87.1 Hypo-osmolality and hyponatremia; E87.2 Acidosis; C92.00 Acute myeloblastic leukemia, not having achieved remission; I13.0 Hypertensive heart and chronic kidney disease with heart failure and stage 1 through stage 4 chronic kidney disease, or unspecified chronic kidney disease; Z68.41 Body mass index [BMI] 40.0-44.9, adult; Y84.6 Urinary catheterization as the cause of abnormal reaction of the patient, or of later complication, without mention of misadventure at the time of the procedure; I48.91 Unspecified atrial fibrillation; I25.10 Atherosclerotic heart disease of native coronary artery without angina pectoris; I08.0 Rheumatic disorders of both mitral and aortic valves; N40.0 Benign prostatic hyperplasia without lower urinary tract symptoms; K21.9 Gastro-esophageal reflux disease without esophagitis; E87.6 Hypokalemia; E66.01 Morbid (severe) obesity due to excess calories; G47.33 Obstructive sleep apnea (adult) (pediatric); E87.8 Other disorders of electrolyte and fluid balance, not elsewhere classified; E83.51 Hypocalcemia; E83.42 Hypomagnesemia; M79.644 Pain in right finger(s); R74.8 Abnormal levels of other serum enzymes; N18.9 Chronic kidney disease, unspecified; R53.81 Other malaise; E78.5 Hyperlipidemia, unspecified; Z90.49 Acquired absence of other specified parts of digestive tract; Z95.0 Presence of cardiac pacemaker; Z85.038 Personal history of other malignant neoplasm of large intestine; Z98.84 Bariatric surgery status; Z92.21 Personal history of antineoplastic chemotherapy; Z79.82 Long term (current) use of aspirin; Z87.891 Personal history of nicotine dependence
CPT/HCPCS: 99222-AI; 99232-AI; 99239; A4216; J0696; J1644; J2405; J3475; J3480; J7030; J7512

== ENCOUNTER → 2019-06-04 | Outpatient (CLI) | payer MEDICARE, MEDICAID ==
[~2019-06-04] MED LIST changes: +DIFLUCAN200 MG PO; +MONUROL 3 GM3 G/PKT PO
[2019-06-04 14:32] LABS: BASO % 0.2 % (0.0-2.0); EOS # 0.1 (0.0-0.7); EOS % 1.3 % (0-4.0); GRAN # 4.4 (1.4-6.5); GRAN % 81.1 % (42.2-75.2); LYMPH # 0.6 (1.2-3.4); LYMPH % 11.7 % (20.0-51.0); MEAN CELL VOLUME 105 fl (80.0-100.0); MEAN CORPUSCULAR HGB CONC 31 g/dl (33.0-37.0); MEAN PLATELET VOLUME 11.3 fl (7.4-10.4); MONO # 0.3 (0.1-0.6); MONO % 4.8 % (1.7-9.3); PLATELET COUNT 171 K/mm3 (130-400); RED BLOOD COUNT 2.82 M/mm3 (4.20-5.60); REDCELL DISTRIBUTION WIDTH-CV 21.4 % (11.5-14.5)
[2019-06-04 14:42] LABS: ALBUMIN 1.7 gm/dL (3.5-5.0); BILIRUBIN,TOTAL 0.3 mg/dL (0.0-1.0); CALCIUM 7.2 mg/dL (8.4-10.2); CREATININE, serum 0.71 (0.66-1.25); POTASSIUM 3.5 mmol/L (3.4-5.0); TOTAL PROTEIN 3.8 gm/dL (6.4-8.2)
[2019-06-04 14:46] LABS: HEMATOCRIT 29.7 % (42.0-52.0); HEMOGLOBIN 9.3 g/dl (13.5-18.0); MEAN CORPUSCULAR HEMOGLOBIN 33 pg (27.0-31.0)
== END ==
LOC: ZLAB.STJ 14:06 → ZCOL.LAB 14:06
PROVIDERS: Family Medicine
DX: I10 Essential (primary) hypertension (principal)

== ENCOUNTER → 2019-07-16 | Outpatient (CLI) | payer MEDICARE, MEDICAID | LOC: ZLAB.STJ 10:21 | DX: Z01.89 Encounter for other specified special examinations (principal) ==

== ENCOUNTER 2019-07-24 16:49 | Inpatient (IN) | payer MEDICARE ==
[~2019-07-24] VITALS: Ht 180.3 cm; Wt 129.0 kg
[2019-07-24] VITALS (45 sets, daily range): BP systolic 134; BP diastolic 104; PULSE 64; TEMP 97.5; O2SAT 93–100
[~2019-07-24 16:49] MED LIST changes: -FERRO-TIME325 MG PO; -ZOFRAN 4MG T4 MG/TAB PO; -ZOLOFT 50MG50 MG PO
[2019-07-24 18:04] LABS: BASO % 0.2 % (0.0-2.0); EOS % 0.1 % (0-4.0); GRAN # 10.7 (1.4-6.5); GRAN % 89.7 % (42.2-75.2); HEMATOCRIT 39.5 % (42.0-52.0); LYMPH # 0.7 (1.2-3.4); LYMPH % 6.2 % (20.0-51.0); MEAN CELL VOLUME 98 fl (80.0-100.0); MEAN CORPUSCULAR HEMOGLOBIN 32 pg (27.0-31.0); MEAN CORPUSCULAR HGB CONC 33 g/dl (33.0-37.0); MEAN PLATELET VOLUME 11.6 fl (7.4-10.4); MONO # 0.3 (0.1-0.6); MONO % 2.7 % (1.7-9.3); PLATELET COUNT 194 K/mm3 (130-400); RED BLOOD COUNT 4.04 M/mm3 (4.20-5.60); REDCELL DISTRIBUTION WIDTH-CV 16.1 % (11.5-14.5)
[2019-07-24 18:10] LABS: INR 1.1 (0.8-3.0)
[2019-07-24 18:14] LABS: ALBUMIN 1.8 gm/dL (3.5-5.0); BILIRUBIN,TOTAL 0.6 mg/dL (0.0-1.0); CREATININE, serum 1.51 (0.66-1.25); TOTAL PROTEIN 4.5 gm/dL (6.4-8.2)
[2019-07-24 18:16] LABS: POTASSIUM 2.6 mmol/L (3.4-5.0)
[2019-07-24 20:30] LABS: MAGNESIUM 1.8 mg/dL (1.6-2.3); PHOSPHOROUS 3.1 mg/dL (2.5-4.5)
--- NOTE | 2019-07-24 21:09 | NUR ---
REPORT RECEIVED FROM KENN ESTRADA.
--- NOTE | 2019-07-24 21:20 | NUR ---
PT ARRIVED IN UNIT VIA STRETCHER, TRANSFERED TO BED VIA KATIE LIFT. PT ALERT AND ORIENTED X3, JUST CONFUSED WITH THE DATE. PT DENIES PAIN UPON ARRIVAL.
[2019-07-24] MEDS ORDERED: FERRO-TIME325 MG PO (22:12)
[2019-07-24] MEDS ORDERED: ZOLOFT 50MG50 MG PO (22:14)
[2019-07-24] MEDS ORDERED: ZOFRAN 4MG T4 MG/TAB PO (22:17)
[2019-07-25] VITALS (377 sets, daily range): BP systolic 70–120; BP diastolic 20–74; PULSE 61–76; TEMP 97.4–97.8; O2SAT 79–100
--- NOTE | 2019-07-25 01:00 | NUR ---
URINARY BAG CHANGED.
--- NOTE | 2019-07-25 01:06 | NUR ---
2300 - PT'S BP RANGING FROM 50-80S, GRIPPER INSTALLER AWARE. BP CUFF ON LOWER RIGHT ARM PT HAS DVT ON LEFT ARM AND A PICC LINE ON JEMAL. THIS RN TRIED DIFFRENT BP CUFF AND EVEN TRIED PUTTING IT ON PT'S LEG, BP REMAINS ON SAME RANGE. WILL CONTINUE TO MONITOR.
--- NOTE | 2019-07-25 03:01 | NUR ---
HEP XA CAME BACK AT 2.95. HEPARIN STOPPED AND WILL RE-DRAW AT 0500.
--- NOTE | 2019-07-25 03:38 | NUR ---
PT NOTED TO HAVE HEMATURIA RIGHT BEFORE CHANGING THE URINARY BAG. SINCE THEN, NO OUTPUT CAME OUT ON THE BAG. SOME CLOTS NOTED WELL. FILLER SIFTER HELPER NOTIFIED AND ORDERED TO IRRIGATE CATHETER. WILL CONTINUE TO MONITOR.
--- NOTE | 2019-07-25 03:41 | NUR ---
TOMAS CATHETER IRRIGATED PER ORDER. NO MORE CLOTS NOTED. WILL CONTINUE TO MONITOR.
[2019-07-25 05:06] LABS: HEMOGLOBIN 11.7 g/dl (13.5-18.0); MEAN CELL VOLUME 97 fl (80.0-100.0); MEAN CORPUSCULAR HEMOGLOBIN 33 pg (27.0-31.0); MEAN CORPUSCULAR HGB CONC 34 g/dl (33.0-37.0); MEAN PLATELET VOLUME 11.7 fl (7.4-10.4); PLATELET COUNT 171 K/mm3 (130-400); RED BLOOD COUNT 3.56 M/mm3 (4.20-5.60); REDCELL DISTRIBUTION WIDTH-CV 16.4 % (11.5-14.5)
[2019-07-25 05:07] LABS: HEMATOCRIT 34.6 % (42.0-52.0)
--- NOTE | 2019-07-25 05:20 | NUR ---
PY BLADDER SCAN AND ONLY HAS 42 ML.
[2019-07-25 05:32] LABS: CALCIUM 6.6 mg/dL (8.4-10.2); CREATININE, serum 1.63 (0.66-1.25); POTASSIUM 3.3 mmol/L (3.4-5.0)
--- NOTE | 2019-07-25 05:33 | NUR ---
PT'S URINE OUTPUT WAS ONLY 200, APPLICATIONS SUPPORT LEAD NOTIFIED. NO CURRENT NEW ORDERS GIVEN AT THIS TIME. PT STILL HAVING HEMATURIA. WILL CONTINUE TO MONITOR.
--- NOTE | 2019-07-25 07:30 | NUR ---
Bedside report recieved from KENN Rose. Patient repositioned and pericare provided. All tubes and lines reviewes, care assumed at this time.
[2019-07-25 07:46] LABS: BAND 4 % (0-10); LYMPHOCYTE 1 % (20.0-51.0); NEUTROPHILS 93 % (42.0-75.2); PLATELET ESTIMATE NORMAL (NORMAL)
[2019-07-25 07:48] LABS: ANISOCYTOSIS 1+; TARGET CELLS 1+
[2019-07-25 07:49] LABS: HYPOCHROMIA 1+
[2019-07-25 10:19] LABS: COLLECTION METHOD CATHETER
--- NOTE | 2019-07-25 10:39 | NUR ---
Vancomycin Initial Dosing Pharmacy Note Ordering provider: Mundo Montano MD Indication/duration: bacteremia, 14 days Relevant comorbidities: LUE DVT, h/o Enterococcus facecalis UTI 05/26/19 LABS: SCr 1.63, CrCl~52, GFR 42 Recommendation: Will give Vancomycin 2 gm IV x1 loading dose, followed by Vancomycin 1.75 gm IV q12h. Will check a Vancomycin trough on 07/27/19. Pharmacy will continue to monitor. Loading dose: 2 grams Maintenance dose: 1.75 grams every 12 hours Trough goal: 15-20 ug/mL
[2019-07-25 10:47] LABS: MUCOUS Present /lpf; SQUAMOUS EPITHELIAL None Seen /hpf; URINE RBC >50 /hpf
[2019-07-25 10:49] LABS: PH 6 (5-8); URINE APPEARANCE Turbid; URINE BILIRUBIN Negative (NEGATIVE); URINE BLOOD 3+ (NEGATIVE); URINE GLUCOSE Negative (NEGATIVE); URINE KETONE Negative (NEGATIVE); URINE LEUKOCYTE ESTERASE 1+ (NEGATIVE); URINE NITRATE Negative (NEGATIVE); URINE PROTEIN(semi-quant) 2+ (NEGATIVE); URINE UROBILINOGEN Negative (NEGATIVE)
[2019-07-25 10:50] LABS: URINE COLOR Red
[2019-07-25 11:05] LABS: URINE BACTERIA Rare /hpf
--- NOTE | 2019-07-25 11:11 | NUR ---
ALYCIA met with patient in room. Patient plans to return to [facility] after this stay. Patient reports that his dpoa is Amparo Ding . Patient reports that he using [facility] for RX and PCP is Roxane Salinas. Patient reports that the PCP has the DPOA form that name the DRAnaly as DPOA. Patient reports that he has a pacemaker and a cane. Patient denies having any other concerns at this time. Will continue to follow.
--- NOTE | 2019-07-25 12:11 | NUR ---
Patient sitting up watching TV at this time. Complains of pain "all over" and requests medication, see EMAR. Blood pressure remains low, unable to adequately monitor due to edema and DVT status. Flow tracker machine placed at 1055, still providing low readings so medication started to support blood pressure-see orders and EMAR. Patient tolerating well, no other complaints at this time. Raymond draining to gravity with no kinks, very dark tea colored output. Left arm still weaping clear liquid, absorptive pad underneath. PICC line infusing well. Patient pleasant and cooperative, reoriented to room and call light.
--- NOTE | 2019-07-25 16:38 | NUR ---
1 Liter bolus of NS given per Dr. Renner orders. Levophed also initiated per Dr. Renner orders, see EMAR.
[2019-07-25 22:07] LABS: MAGNESIUM 1.8 mg/dL (1.6-2.3); POTASSIUM 3.9 mmol/L (3.4-5.0)
[2019-07-26] VITALS (609 sets, daily range): BP systolic 80–119; BP diastolic 48–80; PULSE 64–92; TEMP 97.6–98.8; O2SAT 77–100
--- NOTE | 2019-07-26 01:57 | NUR ---
HEP XA AT 1.46, HEPARIN STOPPED AND WILL RECHECK HEP XA AGAIN AT 0400.
--- NOTE | 2019-07-26 03:36 | NUR ---
PT STILL HAVING DECREASED URINE OUTPUT JUST LIKE DURING THE DAY. AT THIS TIME, PT ONLY HAD 100 ML OUT. TOMAS IRRIGATED AND NS AT 75 ML/HR STILL GOING. E CARE NOTIFIED AND UPDATED.
[2019-07-26 04:36] LABS: MEAN CELL VOLUME 96 fl (80.0-100.0); MEAN CORPUSCULAR HEMOGLOBIN 33 pg (27.0-31.0); MEAN CORPUSCULAR HGB CONC 34 g/dl (33.0-37.0); MEAN PLATELET VOLUME 11.1 fl (7.4-10.4); PLATELET COUNT 226 K/mm3 (130-400); RED BLOOD COUNT 3.36 M/mm3 (4.20-5.60); REDCELL DISTRIBUTION WIDTH-CV 16.5 % (11.5-14.5)
[2019-07-26 04:47] LABS: HEMATOCRIT 32.3 % (42.0-52.0)
--- NOTE | 2019-07-26 04:48 | NUR ---
CRITICAL LAB RESULT OF WBC 22.3 REPORTED TO [facility].
[2019-07-26 04:51] LABS: CALCIUM 6.6 mg/dL (8.4-10.2); CREATININE, serum 1.67 (0.66-1.25); MAGNESIUM 1.6 mg/dL (1.6-2.3); PHOSPHOROUS 2.7 mg/dL (2.5-4.5); POTASSIUM 3.7 mmol/L (3.4-5.0)
[2019-07-26 05:36] LABS: ANISOCYTOSIS 1+; BAND 4 % (0-10); LYMPHOCYTE 2 % (20.0-51.0); NEUTROPHILS 94 % (42.0-75.2); PLATELET ESTIMATE NORMAL (NORMAL)
[2019-07-26 05:37] LABS: BURR CELLS 3+; HYPERSEGMENTED POLYS PRESENT; POIKILOCYTOSIS 2+
--- NOTE | 2019-07-26 08:30 | NUR ---
PT IS A&O X4. PT DID HAVE TWO MEDIUM LOOSE/LIQUID STOOLS THIS AM THAT WERE DARK BROWN IN COLOR.
--- NOTE | 2019-07-26 13:32 | NUR ---
Patient resides at [facility] shelter. Due to insurance, they will need a 24 hour prior auth to return. Please be advised.
--- NOTE | 2019-07-26 19:00 | NUR ---
RECEIVED REPORT FROM KENN SMITH.
--- NOTE | 2019-07-26 20:00 | NUR ---
Patient is sitting up right in bed watching television at this time. Patient is alert and oriented x 4 and complains of generalized pain rated 7/10. Lung sounds upon auscultation are clear. Radial pulses are palpable, however, a doppler is used to assess pedal and tibial pulses. Patient's skin is primarily cool and dry, although the upper arms and lower extremities are weeping. Patient's urine output at the hub appears brownish/pink in color and is cloudy. A sample is obtained and sent to the lab per prior physician orders. Patient has a rectal tube with little output in the tubing itself; none has collected in the drainage bag. Upon further assessment, a medium amount of bowel is found within bed linens. Melia care and a bed bath is completed and skin further assessed. Patient has an excoriated bottom with a 2-3 open blister-like abrasions. The head of patient's penis is macerated and the abdominal and groin folds are excoriated. Patient also has a friction abrasions bilaterally to the sides of the body, near the axillary line. The left lateral leg also has open blister-like abrasions. Patient is provided 650mg of Tylenol at this time for pain. Will continue to monitor.
[2019-07-26 20:20] LABS: COLLECTION METHOD CATHETER
[2019-07-26 21:06] LABS: BUDDING YEAST Present /hpf; MUCOUS Present /lpf; PH 5 (5-8); URINE APPEARANCE Turbid; URINE BACTERIA None Seen /hpf; URINE BILIRUBIN Negative (NEGATIVE); URINE BLOOD 3+ (NEGATIVE); URINE COLOR Red; URINE GLUCOSE Negative (NEGATIVE); URINE KETONE Negative (NEGATIVE); URINE LEUKOCYTE ESTERASE 1+ (NEGATIVE); URINE NITRATE Negative (NEGATIVE); URINE PROTEIN(semi-quant) 1+ (NEGATIVE); URINE RBC >50 /hpf; URINE UROBILINOGEN Negative (NEGATIVE); URINE WBC >50 /hpf
--- NOTE | 2019-07-26 22:58 | NUR ---
Patient's DBP has consistently been between 95-110 with MAPs above 95 for the last hour. Levophed dosage is being titrated down at this time. Will continue to monitor.
[2019-07-27] VITALS (559 sets, daily range): BP systolic 91–143; BP diastolic 65–93; PULSE 59–95; TEMP 97.3–98.5; O2SAT 92–100
[2019-07-27 05:59] LABS: EOS % 0.2 % (0-4.0); GRAN # 8.7 (1.4-6.5); GRAN % 85.6 % (42.2-75.2); LYMPH % 9.6 % (20.0-51.0); MEAN CELL VOLUME 100 fl (80.0-100.0); MEAN CORPUSCULAR HGB CONC 33 g/dl (33.0-37.0); MEAN PLATELET VOLUME 10.3 fl (7.4-10.4); MONO # 0.4 (0.1-0.6); MONO % 3.6 % (1.7-9.3); PLATELET COUNT 130 K/mm3 (130-400); RED BLOOD COUNT 2.34 M/mm3 (4.20-5.60); REDCELL DISTRIBUTION WIDTH-CV 16.6 % (11.5-14.5)
[2019-07-27 06:24] LABS: CALCIUM 6.4 mg/dL (8.4-10.2); CREATININE, serum 1.54 (0.66-1.25); POTASSIUM 3.3 mmol/L (3.4-5.0)
[2019-07-27 06:31] LABS: HEMATOCRIT 23.4 % (42.0-52.0); MEAN CORPUSCULAR HEMOGLOBIN 32 pg (27.0-31.0)
[2019-07-27 06:33] LABS: HEMOGLOBIN 7.6 g/dl (13.5-18.0)
--- NOTE | 2019-07-27 07:20 | NUR ---
Bedside report provided to KENN Tran, and KENN Alford.
--- NOTE | 2019-07-27 09:30 | NUR ---
order for PICC exchange. Explained the procedure to the patient. Patient does have positive blood cultures. PICC intact right upper arm. Patient does have an extensive thrombus in left arm. Visited with crop or grain farmworker and due to patient being a very difficult peripheral IV stick and inability to obtain peripheral IV access this a.m. Will await for PICC exchange. Blood cultures will be redrawn. B change prior to lab draw. Patient's blood pressure is too unstable to attempt PICC exchange at this time. Explained to the with the summary might not be successful due to extensive thrombus. Await blood culture report. RN informed.
[2019-07-27 11:08] LABS: BASO % 0.1 % (0.0-2.0); EOS % 0.1 % (0-4.0); GRAN # 8.3 (1.4-6.5); GRAN % 85.3 % (42.2-75.2); HEMATOCRIT 20.9 % (42.0-52.0); HEMOGLOBIN 6.8 g/dl (13.5-18.0); LYMPH # 0.9 (1.2-3.4); LYMPH % 8.9 % (20.0-51.0); MEAN CELL VOLUME 100 fl (80.0-100.0); MEAN CORPUSCULAR HEMOGLOBIN 32 pg (27.0-31.0); MEAN CORPUSCULAR HGB CONC 33 g/dl (33.0-37.0); MEAN PLATELET VOLUME 10.4 fl (7.4-10.4); MONO # 0.5 (0.1-0.6); MONO % 4.6 % (1.7-9.3); PLATELET COUNT 108 K/mm3 (130-400); REDCELL DISTRIBUTION WIDTH-CV 16.6 % (11.5-14.5)
--- NOTE | 2019-07-27 11:40 | NUR ---
PICC intact right upper arm. No chlorhexidine impregnated disc present. With sterile technique right upper arm PICC dressing change done with insertion site cleansed with ChloraPrep 1, chlorhexidine impregnated disc applied, skin prep, StatLock, and Tegaderm applied. Site looks good without any signs of complications. No concerns voiced. We'll continue to monitor.
--- NOTE | 2019-07-27 11:47 | NUR ---
pediatric social worker met with patient for a palliative care, along with Asia Bello. Patient desires to be a full code and spoke of activities that bring quality to his days. Patient resides in exterminator care at [facility] and plans to return there upon discharge. Patient's living will and durable power of defense attorney are on the chart. Worker contacted Martín at [facility] and advised of the above information.
--- NOTE | 2019-07-27 14:57 | NUR ---
Met with pt during and after rounds with treatment team today. 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 He remains a full code. He has given his life partner Amparo and his daughter permission to allow his if the pain gets bad and there is no hope. This is written on his advanced directives and was verified today but he does not see himself in that situation at this time.
--- NOTE | 2019-07-27 17:20 | NUR ---
AT BEDSIDE TO PERFORM CYSTO WITH TOMAS CATH PLACEMENT. CONSENT RETRIEVED FROM PATIENT. PLACEMENT WAS SUCCESSFUL.
[2019-07-27 20:13] LABS: HEMATOCRIT 23.6 % (42.0-52.0); HEMOGLOBIN 7.8 g/dl (13.5-18.0)
[2019-07-28] VITALS (737 sets, daily range): BP systolic 108–149; BP diastolic 22–89; PULSE 59–63; TEMP 97.5–98.1; O2SAT 69–100
[2019-07-28 05:27] LABS: EOS % 0.4 % (0-4.0); GRAN # 4.6 (1.4-6.5); GRAN % 83.5 % (42.2-75.2); LYMPH # 0.6 (1.2-3.4); LYMPH % 10.5 % (20.0-51.0); MEAN CELL VOLUME 98 fl (80.0-100.0); MEAN CORPUSCULAR HGB CONC 32 g/dl (33.0-37.0); MEAN PLATELET VOLUME 11.4 fl (7.4-10.4); MONO # 0.3 (0.1-0.6); MONO % 4.7 % (1.7-9.3); PLATELET COUNT 89 K/mm3 (130-400); RED BLOOD COUNT 2.26 M/mm3 (4.20-5.60); REDCELL DISTRIBUTION WIDTH-CV 18.4 % (11.5-14.5)
[2019-07-28 05:28] LABS: HEMATOCRIT 22.2 % (42.0-52.0); HEMOGLOBIN 7.2 g/dl (13.5-18.0); MEAN CORPUSCULAR HEMOGLOBIN 32 pg (27.0-31.0)
[2019-07-28 05:38] LABS: ALBUMIN 2.3 gm/dL (3.5-5.0); CALCIUM 6.7 mg/dL (8.4-10.2); CREATININE, serum 1.49 (0.66-1.25); MAGNESIUM 1.6 mg/dL (1.6-2.3); PHOSPHOROUS 2.2 mg/dL (2.5-4.5); POTASSIUM 3.4 mmol/L (3.4-5.0); TOTAL PROTEIN 4.2 gm/dL (6.4-8.2)
[2019-07-28 05:55] LABS: TROPONIN-I 0.093 ng/mL (0.000-0.035)
[2019-07-28 06:08] LABS: BILIRUBIN UNCONJUGATED 0.4 mg/dL (0.0-1.1); BILIRUBIN,DIRECT 0.4 mg/dL (0.0-0.4); BILIRUBIN,TOTAL 0.8 mg/dL (0.0-1.0)
--- NOTE | 2019-07-28 08:00 | NUR ---
Shift assessment complete at this time. Plan of care reviewed at bedside with patient. Additional time taken to address any other needs or concerns. Vitals stable at this time. Pt reports 7/10 back pain and request dosage of PRN analgesic at next available time. Will administer PRN Randall at 0930 once available. Pt denies any other discomforts. Bed in low position, call light within reach. Will continue to monitor.
--- NOTE | 2019-07-28 12:00 | NUR ---
Shift reassessment complete at this time. No changes from previous assessment noted. Vitals stable at this time. Pt reports tolerable back pain and declines intervention at this time. Bed in low et locked position. will continue to monitor.
--- NOTE | 2019-07-28 16:00 | NUR ---
Shift reassessment complete at this time. No changes from previous assessment noted. Pt denies pain at this time or any other discomfort. Vitals stable at this time. Bed in low position, call light within reach. Will continue to monitor.
--- NOTE | 2019-07-28 19:28 | NUR ---
Bedside report given to KENN Rose.
--- NOTE | 2019-07-28 20:00 | NUR ---
PT ON BOWEL PREP, COULD ONLY TAKE HALF A GLASS EVERY 15 MINS. WILL CONTINUE TO ENCOURAGE DRINKING PREP.
[2019-07-29] VITALS (699 sets, daily range): BP systolic 101–141; BP diastolic 67–82; PULSE 60–91; TEMP 97.4–98.4; O2SAT 87–100
--- NOTE | 2019-07-29 | NUR ---
PT'S RECTAL TUBE IN PLACE BUT NOTED TO BE LEAKING AROUND. WHOLE BED CHANGED DONE.
[2019-07-29 05:26] LABS: EOS # 0.1 (0.0-0.7); EOS % 1.1 % (0-4.0); GRAN # 4.6 (1.4-6.5); GRAN % 85.2 % (42.2-75.2); LYMPH # 0.5 (1.2-3.4); LYMPH % 9.8 % (20.0-51.0); MEAN CELL VOLUME 97 fl (80.0-100.0); MEAN CORPUSCULAR HGB CONC 34 g/dl (33.0-37.0); MEAN PLATELET VOLUME 10.8 fl (7.4-10.4); MONO # 0.2 (0.1-0.6); MONO % 3.3 % (1.7-9.3); PLATELET COUNT 86 K/mm3 (130-400); RED BLOOD COUNT 2.44 M/mm3 (4.20-5.60); REDCELL DISTRIBUTION WIDTH-CV 17.7 % (11.5-14.5)
[2019-07-29 05:30] LABS: HEMATOCRIT 23.7 % (42.0-52.0); HEMOGLOBIN 8.1 g/dl (13.5-18.0); MEAN CORPUSCULAR HEMOGLOBIN 33 pg (27.0-31.0)
[2019-07-29 05:30] LABS: CALCIUM 7.1 mg/dL (8.4-10.2); CREATININE, serum 1.47 (0.66-1.25); POTASSIUM 3.1 mmol/L (3.4-5.0)
--- NOTE | 2019-07-29 07:50 | NUR ---
Report received from Rose HAWK and care resumed.
--- NOTE | 2019-07-29 08:10 | NUR ---
Pt to endo at this time.
--- NOTE | 2019-07-29 12:07 | NUR ---
Dr Montano in to see pt at this time.
--- NOTE | 2019-07-29 14:47 | NUR ---
Dr Chris called for update on pt.
--- NOTE | 2019-07-29 19:19 | NUR ---
Report given to Rose HAWK and care transfered.
[2019-07-30] VITALS (833 sets, daily range): BP systolic 121–140; BP diastolic 70–91; PULSE 72–85; TEMP 98–98.7; O2SAT 83–99
--- NOTE | 2019-07-30 00:21 | NUR ---
CRITICAL VANCOMYCIN TROUGH OF 48.23 REPORTED TO E CARE, WILL HOLD DOSE OF VANCOMYCIN TONIGHT.
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
[2019-07-30 05:15] LABS: EOS % 0.6 % (0-4.0); GRAN % 84.2 % (42.2-75.2); LYMPH # 0.5 (1.2-3.4); MEAN CELL VOLUME 97 fl (80.0-100.0); MEAN CORPUSCULAR HGB CONC 33 g/dl (33.0-37.0); MEAN PLATELET VOLUME 11.4 fl (7.4-10.4); MONO # 0.2 (0.1-0.6); MONO % 4.4 % (1.7-9.3); PLATELET COUNT 85 K/mm3 (130-400); RED BLOOD COUNT 2.41 M/mm3 (4.20-5.60); REDCELL DISTRIBUTION WIDTH-CV 17.6 % (11.5-14.5)
[2019-07-30 05:16] LABS: HEMATOCRIT 23.3 % (42.0-52.0); HEMOGLOBIN 7.6 g/dl (13.5-18.0); MEAN CORPUSCULAR HEMOGLOBIN 32 pg (27.0-31.0)
[2019-07-30 05:24] LABS: CALCIUM 7.7 mg/dL (8.4-10.2); CREATININE, serum 1.38 (0.66-1.25); POTASSIUM 3.3 mmol/L (3.4-5.0)
--- NOTE | 2019-07-30 05:52 | NUR ---
BS AT 62, WILL GIVE ORANGE JUICE AND WILL RE-CHECK IN 15 MINS.
--- NOTE | 2019-07-30 05:52 | NUR ---
PT'S HGB AT 7.6, E CARE NOTIFIED.
--- NOTE | 2019-07-30 06:43 | NUR ---
BS AT 95.
--- NOTE | 2019-07-30 07:10 | NUR ---
Report recieved from Rose HAWK. Medication drips verified. Patient sleeping with eyes closed, call light in reach
[2019-07-30 09:06] LABS: ALBUMIN 2.7 gm/dL (3.5-5.0)
--- NOTE | 2019-07-30 13:41 | NUR ---
[employer] student faxed 07/28/19-07/30/19 updates to Martín at [facility]. youth services specialist will continue to monitor.
--- NOTE | 2019-07-30 17:00 | NUR ---
Incontient large, loose dark stool. Cares provided and linens changed. Significant other at bedside and very tearful, taken out of room at this time. States "It's just so hard, I can't do this". Emotional support provided. Asked if she could just sit out desk for a moment before returning to room, allowed and will monitor for futher needs.
[2019-07-31] VITALS (443 sets, daily range): BP systolic 117–128; BP diastolic 77–83; PULSE 70–80; TEMP 98.5–98.7; O2SAT 88–99
[2019-07-31 06:45] LABS: CALCIUM 7.7 mg/dL (8.4-10.2); CREATININE, serum 1.25 (0.66-1.25)
--- NOTE | 2019-07-31 06:49 | NUR ---
PT has been asleep most of the evening and wakes easily to voice, follows commands. Updated on POC for the evening and educated on medications administered.
[2019-07-31 06:53] LABS: POTASSIUM 2.9 mmol/L (3.4-5.0)
[2019-07-31 08:07] LABS: EOS % 0.6 % (0-4.0); GRAN # 5.3 (1.4-6.5); GRAN % 86.2 % (42.2-75.2); HEMATOCRIT 25.5 % (42.0-52.0); HEMOGLOBIN 8.5 g/dl (13.5-18.0); LYMPH # 0.5 (1.2-3.4); LYMPH % 8.7 % (20.0-51.0); MEAN CELL VOLUME 96 fl (80.0-100.0); MEAN CORPUSCULAR HEMOGLOBIN 32 pg (27.0-31.0); MEAN CORPUSCULAR HGB CONC 33 g/dl (33.0-37.0); MEAN PLATELET VOLUME 11.3 fl (7.4-10.4); MONO # 0.2 (0.1-0.6); MONO % 3.5 % (1.7-9.3); PLATELET COUNT 93 K/mm3 (130-400); RED BLOOD COUNT 2.67 M/mm3 (4.20-5.60); REDCELL DISTRIBUTION WIDTH-CV 17.7 % (11.5-14.5)
--- NOTE | 2019-07-31 08:30 | NUR ---
Report received from Celina HAWK and care resumed. PT resting upon assessment. Did voice pain all over 8. PRN pain meds given. VSS. Will continue to follow.
--- NOTE | 2019-07-31 09:49 | NUR ---
Dr Chris called for update on pt. No new orders at this time. Will continue to follow.
--- NOTE | 2019-07-31 11:58 | NUR ---
Pt is sleeping soundly at this time and did not awaken to voice or touch. I will follow up with him next week.
--- NOTE | 2019-07-31 19:00 | NUR ---
Received report from KENN Guzman.
--- NOTE | 2019-07-31 19:37 | NUR ---
Report given to Pushpa HAWK and care transfered.
--- NOTE | 2019-07-31 20:00 | NUR ---
Patient is resting quietly with eyes closed upon entering room and is experiencing some nausea and dry heaving during assessment. Patient's head is elevated above 45 degrees and an emesis bag is provided. Patient reports 8/10 "aching" pain in legs. PRN medication is offered and administered per patient's request. Bumex is currently infusing at 20 mL/hour. Will continue to monitor.
[2019-08-01] VITALS (856 sets, daily range): BP systolic 115–125; BP diastolic 71–83; PULSE 77–83; TEMP 97.7–98.9; O2SAT 61–100
[2019-08-01 06:42] LABS: MEAN CELL VOLUME 96 fl (80.0-100.0); MEAN CORPUSCULAR HGB CONC 34 g/dl (33.0-37.0); MEAN PLATELET VOLUME 12.5 fl (7.4-10.4); PLATELET COUNT 86 K/mm3 (130-400); RED BLOOD COUNT 2.82 M/mm3 (4.20-5.60)
[2019-08-01 06:44] LABS: HEMOGLOBIN 9.1 g/dl (13.5-18.0); MEAN CORPUSCULAR HEMOGLOBIN 32 pg (27.0-31.0)
[2019-08-01 07:01] LABS: CREATININE, serum 1.45 (0.66-1.25); POTASSIUM 3.4 mmol/L (3.4-5.0)
--- NOTE | 2019-08-01 07:18 | NUR ---
Report provided to KENN Guzman.
--- NOTE | 2019-08-01 07:18 | NUR ---
Report receive from Pushpa HAWK and care resumed.
[2019-08-01 10:25] LABS: BAND 2 % (0-10); LYMPHOCYTE 1 % (20.0-51.0); NEUTROPHILS 96 % (42.0-75.2)
[2019-08-01 10:32] LABS: ANISOCYTOSIS 3+; BURR CELLS 2+; OVALOCYTES 1+; PLATELET ESTIMATE DECREASED (NORMAL)
--- NOTE | 2019-08-01 19:00 | NUR ---
Received report from KENN Guzman.
--- NOTE | 2019-08-01 19:18 | NUR ---
Report given to Pushpa HAWK and care resumed.
--- NOTE | 2019-08-01 21:27 | NUR ---
Patient appears to have increased lethargy compared to previous evening. Patient must be prompted 2-3 times prior to answering questions regarding pain and orientation. Patient is alert with partial orientation to location and time of day. When attempting to administer scheduled evening medications, patient initially refused oral medications and also sips of water. Patient eventually agreed to take a few sips of water and a few spoonfuls of pudding. Scheduled amiodarone was administered, however, the other oral evening medications were refused despite multiple attempts by staff. Patient states he continues to want to receive all cares necessary to get better, and states, "I feel pretty good," when asked how he physically feels. At this time, patient is sitting upright in bed with some mild nausea. He is 94% on 4L via the oxymask. Patient reports tolerable leg pain as 4/10. Will continue to monitor.
[2019-08-02] VITALS (449 sets, daily range): BP systolic 104–125; BP diastolic 7–84; PULSE 80–91; TEMP 97–98.7; O2SAT 79–100
[2019-08-02 02:19] LABS: ARTERIAL BLD GAS O2 SATURATION 86.5 % (92-100); ARTERIAL BLD GAS TCO2 CT 18.7; ARTERIAL BLOOD GAS HCO3 17.8 meq/L (22-26); ARTERIAL BLOOD GAS PCO2 29.4 mmHg (35-45); ARTERIAL BLOOD GAS PO2 50.1 mmHg (80-100)
--- NOTE | 2019-08-02 02:37 | NUR ---
Staff performed pericare and bed linen change following an episode of stool incontinence at approx. 0000. During this time, patient's oxygen saturation dipped into the 80s. After repositioning patient with HOB elevated, O2 sats remained low. Patient was placed on the CPAP on 8L of oxygen and O2 probe was replaced. Patient sustained O2 in the 90s for over an hour, so oxygen was gradually titrated to 4L. Patient began attempting to remove CPAP mask and was placed back on oxymask. Patient continued to remove mask despite staff's explanation of its benefits. Patient's mental status differed from that assessed at the beginning of shift. Patient was alert to person, place, and time of day, however, responses were slow and required frequent prompting. Sue was notified of patient's change in mental status and requested a stat ABG, blood sugar, CBC, and CMP. Following the result of patient's pO2 of 50 from the ABG, Sue ordered that the patient be placed on BiPap. Patient is currently on the BiPap at 60% FiO2 and tolerating well. Will repeat ABG in one hour per orders.
[2019-08-02 02:40] LABS: EOS % 0.1 % (0-4.0); GRAN # 6.3 (1.4-6.5); HEMATOCRIT 26.4 % (42.0-52.0); HEMOGLOBIN 8.8 g/dl (13.5-18.0); LYMPH # 0.5 (1.2-3.4); LYMPH % 6.8 % (20.0-51.0); MEAN CELL VOLUME 96 fl (80.0-100.0); MEAN CORPUSCULAR HEMOGLOBIN 32 pg (27.0-31.0); MEAN CORPUSCULAR HGB CONC 33 g/dl (33.0-37.0); MEAN PLATELET VOLUME 12.7 fl (7.4-10.4); MONO # 0.1 (0.1-0.6); PLATELET COUNT 82 K/mm3 (130-400); RED BLOOD COUNT 2.74 M/mm3 (4.20-5.60); REDCELL DISTRIBUTION WIDTH-CV 18.1 % (11.5-14.5)
[2019-08-02 02:50] LABS: ALBUMIN 2.2 gm/dL (3.5-5.0); CALCIUM 7.7 mg/dL (8.4-10.2); CREATININE, serum 1.43 (0.66-1.25); POTASSIUM 3.3 mmol/L (3.4-5.0); TOTAL PROTEIN 4.3 gm/dL (6.4-8.2)
--- NOTE | 2019-08-02 03:37 | NUR ---
PT IS ON A V60 MACHINE IN CPAP MODE. DUE TO PTS ABG PT WAS NEEDING A CONSTANT PRESSURE WITH A WAY TO DIAL IN A PRECISE AMOUNT OF O2. V60 APPLIED AND PT WAS PUT ON CPAP MODE WITH A PRESSURE OF 10 AND FI02 OF 60%. PT IS NADINE WELL WITH NO DISTRESS NOTED AT THIS TIME
[2019-08-02 04:12] LABS: ARTERIAL BLD GAS O2 SATURATION 98.2 % (92-100); ARTERIAL BLD GAS TCO2 CT 18.6; ARTERIAL BLOOD GAS BASE EXCESS -6.2 (-2-2); ARTERIAL BLOOD GAS HCO3 17.7 meq/L (22-26); ARTERIAL BLOOD GAS PCO2 29.8 mmHg (35-45); ARTERIAL BLOOD GAS pH 7.39 (7.35-7.45)
[2019-08-02 04:13] LABS: ARTERIAL BLOOD GAS PO2 131.4 mmHg (80-100)
--- NOTE | 2019-08-02 07:28 | NUR ---
Report given to KENN Whitten.
--- NOTE | 2019-08-02 08:30 | NUR ---
Patient with deteriorating mental status. Assessment as charted. Patient unable to take any PO meds as charted in MAR as unable to follow commands to swallow. Dr. Bond aware. Patient VSS. Care ongoing.
--- NOTE | 2019-08-02 09:19 | NUR ---
Call placed to Veronica, patient daughter and cell phone service is not currently on.
--- NOTE | 2019-08-02 09:20 | NUR ---
Call placed to Amparo, patient significant other and primary DPOA. Update provided regarding patient's worsening condition. Amparo states she will contact patient daughter via facebook and provide number to ICU.
--- NOTE | 2019-08-02 11:10 | NUR ---
Dr. Bond rounds on patient at this time. Patient DPOA Amparo is called and MD and RN hold conversation with her regarding goals of care. Poor prognosis is discussed and Amparo verbalizes understanding between DNR and comfort care measures. She indicates that at this time she is ready to transition to comfort care and understands that patient will pass away. Orders enter for these changes as provided verbally by Dr. Bond. Care ongoing.
--- NOTE | 2019-08-02 14:08 | NUR ---
Psychiatric Clinical Nurse Specialist was called in to offer spiritual care and prayer. Patient placed on comfort care. Psychiatric Clinical Nurse Specialist read and prayed for a significant time. Family had not shown up.
--- NOTE | 2019-08-02 14:20 | NUR ---
AmparoRANDOLPH arrives and is at bedside. Support and education provided. All questions asked answered. Care ongoing.
--- NOTE | 2019-08-02 17:30 | NUR ---
PT ADMITTED TO FLOOR AT THIS TIME. PT RESTING WITH EYES CLOSED, OXIMASK IN PLACE.
--- NOTE | 2019-08-02 21:10 | NUR ---
PATIENT REPOSITIONED, LINEN CHANGED, BED BATH COMPLETED D/T WEEPING FROM BILATERAL UPPER AND LOWER EXTREMITIES. PATIENT DIAPHORETIC. SEE EMAR FOR 2MG OF IV MORPHINE GIVEN PRIOR TO CARE. PATIENT OPENS EYES WHEN SPOKEN TO SHAKES HEAD YES WHEN ASKED IF IN PAIN. YELLS OUT AND CONSTANT MOANING DURING REPOSITING. WHEN ASKED IF HE MEEDED SOMETHING MORE FOR PAIN AT END OF REPOSITIONING PATIENT SHAKES HEAD YES. SEE EMAR FOR 4MG OF IV MORPHINE ADMINISTERED.
--- NOTE | 2019-08-02 23:12 | NUR ---
PATIENT LAYING IN BED WITH EYES CLOSED. OPENS EYES WHEN NAMED CALLED. NO VERBALIZATION. SHAKES HEAD YES WHEN ASKED IF HURTING. OCCASSIONAL MOANING AND FACIAL GRIMACING AT REST. YELLING OUT AND CRYING WITH REPOSITING. REPOSITIONED AND LINENS CHANGED D/T LINENS BEING SATURED FROM U/L EXTREMITIES WEEPING. SEE EMAR FOR MEDICATIONS ADMINISTERED. OLD COUNTRY MUSIC PLAYING.
--- NOTE | 2019-08-02 23:45 | NUR ---
Patient laying in bed wit relaxed body posture. Occassional facial grimacing and moaning. Shallow even respiratiomn with occasional gasing. Does not open eyes when name called. Extremities cold to touch. Oral cyanosis noted. Sue ODELL notifed. No new orders received. Continue to Keep Patient Comfortable and call with any questions or concerns.
--- NOTE | 2019-08-03 00:31 | NUR ---
Patient Laying in bed with eyes closed. Presents with facial grimacing and occassional moaning and gasping. Linens saturated from bilateral U/l extremity weeping. Attempted to reposition patient. Yelling out. Dry Chucks placed under extremities. See EMAR for IV morphine administered. country music playing.
--- NOTE | 2019-08-03 01:15 | NUR ---
Daughter Victorina arrived at hospital at this time. Update on patient codition and treatment provider. Confirmed wishes for comfort care Only she States "Yes". No questions or concerns with plan of care after review. Discussed wishes for spiritual care at this time. States having a privacy compliance manager at bedside would be very important to him. Call to House Supervispr. Oncal Pressroom Supervisor Called in. Daughter Notifed. Encouraged Daughter to notify staff if needing anthing or having questions or concerns about Dads condition or care. Currently Patient Laying in bed with eyes closed. Continunes with occassional gasping and moaning.
--- NOTE | 2019-08-03 03:32 | NUR ---
0150: Button Station Worker @ bedside. Daughter at bedside. Patient having 30 seconds of Apnea with gasping breathes. Facial grimacing. Relaxed Body posture. Eyes Open. 0156: Apical HR and Respirations absent x 1 minuet. Daughter at bedside. Button Station Worker at bedside. Notified that patient had passed. Sue ODELL notified of absent Heart rate and respiratory rate @ 0156. Amparo Keating Friend and Compain notified per Daughter request. Eye Care Professional notified. Provided family with privacy for grieving. 0230: Daughter leaving Hospital. took personal belongings. 0245: Postmortum Care complete. Raymond and PICC line removed. 0315: Body released to [facility].
== END 2019-08-03 03:50 | disposition expired | DRG 698 ==
LOC: COL.ER 16:49 → MEDICAL 19:38 → COL.ER 19:38 → ICU 19:39 → MEDICAL 19:39 → ICU 20:59 → MEDICAL 08-02 17:41
PROVIDERS: Emergency Medicine; Hospitalist; Internal Medicine; Internal Medicine Critical Care Medicine; Internal Medicine Gastroenterology; Internal Medicine Interventional Cardiology; Internal Medicine Pulmonary Disease; Nurse Practitioner Family; Urology; ADMIT Student in an Organized Health Care Education/Training Program
PROC: 02PYX3Z Removal of Infusion Device from Great Vessel, External Approach (ICD-10-PCS; 2019-07-24)
PROC: 0T9B80Z Drainage of Bladder with Drainage Device, Via Natural or Artificial Opening Endoscopic (ICD-10-PCS; principal; 2019-07-27 17:30)
PROC: 0DBM8ZX Excision of Descending Colon, Via Natural or Artificial Opening Endoscopic, Diagnostic (ICD-10-PCS; 2019-07-29)
PROC: 0DBL8ZX Excision of Transverse Colon, Via Natural or Artificial Opening Endoscopic, Diagnostic (ICD-10-PCS; 2019-07-29)
PROC: 0DBN8ZZ Excision of Sigmoid Colon, Via Natural or Artificial Opening Endoscopic (ICD-10-PCS; 2019-07-29)
PROC: 0DJ08ZZ Inspection of Upper Intestinal Tract, Via Natural or Artificial Opening Endoscopic (ICD-10-PCS; 2019-07-29 08:00)
DX: T83.518A Infection and inflammatory reaction due to other urinary catheter, initial encounter (principal); A41.52 Sepsis due to Pseudomonas; I50.23 Acute on chronic systolic (congestive) heart failure; I82.622 Acute embolism and thrombosis of deep veins of left upper extremity; N39.0 Urinary tract infection, site not specified; I13.0 Hypertensive heart and chronic kidney disease with heart failure and stage 1 through stage 4 chronic kidney disease, or unspecified chronic kidney disease; N17.9 Acute kidney failure, unspecified; E87.1 Hypo-osmolality and hyponatremia; B96.5 Pseudomonas (aeruginosa) (mallei) (pseudomallei) as the cause of diseases classified elsewhere; N50.89 Other specified disorders of the male genital organs; D64.9 Anemia, unspecified; D69.6 Thrombocytopenia, unspecified; E66.01 Morbid (severe) obesity due to excess calories; E87.8 Other disorders of electrolyte and fluid balance, not elsewhere classified; E87.6 Hypokalemia; D12.4 Benign neoplasm of descending colon; D12.5 Benign neoplasm of sigmoid colon; D12.3 Benign neoplasm of transverse colon; N18.9 Chronic kidney disease, unspecified; I44.7 Left bundle-branch block, unspecified; G89.29 Other chronic pain; E83.42 Hypomagnesemia; N40.1 Benign prostatic hyperplasia with lower urinary tract symptoms; R33.8 Other retention of urine; I08.0 Rheumatic disorders of both mitral and aortic valves; K21.9 Gastro-esophageal reflux disease without esophagitis; M19.90 Unspecified osteoarthritis, unspecified site; G47.33 Obstructive sleep apnea (adult) (pediatric); E78.5 Hyperlipidemia, unspecified; I48.91 Unspecified atrial fibrillation; K57.30 Diverticulosis of large intestine without perforation or abscess without bleeding; N28.89 Other specified disorders of kidney and ureter; K52.89 Other specified noninfective gastroenteritis and colitis; I25.10 Atherosclerotic heart disease of native coronary artery without angina pectoris; Z98.84 Bariatric surgery status; Z92.21 Personal history of antineoplastic chemotherapy; Z95.5 Presence of coronary angioplasty implant and graft; Z79.01 Long term (current) use of anticoagulants; Z90.49 Acquired absence of other specified parts of digestive tract; Z85.038 Personal history of other malignant neoplasm of large intestine; Z79.82 Long term (current) use of aspirin; Z87.891 Personal history of nicotine dependence; Z88.0 Allergy status to penicillin; Z88.5 Allergy status to narcotic agent; I25.2 Old myocardial infarction; Z95.0 Presence of cardiac pacemaker; Z66 Do not resuscitate
CPT/HCPCS: 99223-AI; 99233-AI; A4216; C1769; J0692; J1644; J1652; J1956; J2060; J2270; J2370; J2405; J2704; J2765; J3370; J3475; J3480; J7030; J7040; J7050; J7060; P9016; P9047

== ENCOUNTER → 2019-07-24 | Outpatient (CLI) | payer MEDICARE ==
[~2019-07-24] MED LIST changes: +FERRO-TIME325 MG PO; +ZOFRAN 4MG T4 MG/TAB PO; +ZOLOFT 50MG50 MG PO
== END ==
LOC: COL.VAS 14:49 → COL.ER 14:59 → EDSTATUS 15:01 → COL.RAD 15:05
DX: I82.C12 Acute embolism and thrombosis of left internal jugular vein (principal); I82.602 Acute embolism and thrombosis of unspecified veins of left upper extremity; I82.B12 Acute embolism and thrombosis of left subclavian vein; I25.119 Atherosclerotic heart disease of native coronary artery with unspecified angina pectoris